=== PATIENT | female | born 1955 | race Caucasian/White ===

== ENCOUNTER 2022-05-31 12:36 | Observation (INO) | payer MEDICARE, BC ==
[2022-05-31] MEDS ORDERED: VALIUM 10 MG/2 ML SYRINGE IV SCH (13:15)
[2022-05-31] MEDS ORDERED: TRANDATE 100MG/20 ML MDV IV ONE (13:15)
[2022-05-31 13:24] LABS: Hematocrit 50.3 % (35-47); Hemoglobin 17.2 g/dL (12.0-16.0); Mean Cell Volume 91.5 fL (78-100); Mean Corpuscular Hemoglobin 31.3 pg (26-32); Mean Corpuscular Hgb Concent. 34.2 g/dL (32-36); Mean Platelet Volume 10.7 fL (7.5-11.0); Platelet Count 203 x10^3/uL (150-450); Red Cell Distribution Width 12.4 % (11.5-14.0); White Blood Count 10.5 x10^3/uL (4.0-10.5)
[2022-05-31 13:49] LABS: Erythrocyte Sedimentation Rate 7 mm/hr (0-20)
[2022-05-31] MEDS: Sodium Chloride 0.9% 1000 ML 1,000 ML IV SCH ×2 (13:58→22:59)
[2022-05-31 13:59] LABS: Eosinophil 1 % (0.00-3.0); Lymphocytes 34 % (24-44); Monocyte 2 % (0.0-12.0); Platelet Estimate NORMAL (NORMAL); Total Cells Counted 100
[2022-05-31] MEDS ORDERED: TRANDATE 100MG/20 ML MDV IV SCH ×2 (14:00→18:00)
[2022-05-31] MEDS ORDERED: ACETAMINOPHEN PO PRN (14:09)
[2022-05-31] MEDS ORDERED: ACETAMINOPHEN 650 MG PO SCH (14:15)
[2022-05-31] MEDS ORDERED: TYLENOL 325 MG PO SCH (14:30)
[2022-05-31] MEDS ORDERED: TYLENOL 325 MG PO PRN (14:30)
[2022-05-31 15:10] LABS: ALBUMIN 4.6 g/dL (3.5-5.0); ALKALINE PHOSPHATASE 60 U/L (38-126); ANION GAP 14.9 MEQ/L (5-15); BLOOD UREA NITROGEN 13 mg/dL (7-17); CHLORIDE 101 mmol/L (98-107); Calcium 9.3 mg/dL (8.4-10.2); Carbon Dioxide 23 mmol/L (22-30); Creatinine 1 0.82 mg/dL (0.52-1.04); EST GLOMERULAR FILTRATION RATE > 60.0 ML/MIN; Glucose 133 mg/dL (74-106); Potassium 3.7 mmol/L (3.5-5.1); SGOT/AST 22 U/L (14-36); SGPT/ALT 19 U/L (0-35); SODIUM 135 mmol/L (137-145); TROPONIN < 0.012 ng/mL (0.000-0.034)
[2022-05-31] MEDS ORDERED: TRANDATE 100MG/20 ML MDV IV PRN ×3 (15:30→16:15)
[2022-05-31 17:00] LABS: INFLUENZA A NEGATIVE (NEGATIVE); INFLUENZA B NEGATIVE (NEGATIVE); RESPIRATORY SYNCTIAL VIRUS NEGATIVE (Negative); SARS-CoV-2 Xpert Express NEGATIVE (NEGATIVE)
[2022-05-31] MEDS: Ativan 2 MG/1 ML VIAL IV PRN (17:59)
[2022-05-31] MEDS ORDERED: APRESOLINE 20 MG/ML INJ IV PRN (18:23)
--- NOTE | 2022-05-31 18:51 | XRAY ---
Indication: Headache and double vision 2.5 days. Hypertension. Conventional contrast enhanced CTA neck performed using 100 cc Isovue 370 contrast. Two-dimensional sagittal and coronal reformatted images obtained. Additional 3-dimensional reformatted images obtained using a separate workstation. Comparison: None Visualized aortic arch demonstrates mild arteriosclerotic calcifications without aneurysm/dissection. Normal widely patent branching right brachiocephalic, left common carotid, and left subclavian arteries. Examination of the right carotid circulation demonstrates widely patent common carotid artery. At the level of the bulb, there is mild heterogeneous arteriosclerotic plaquing without critical stenosis/obstruction. This slightly extends into the origin and proximal internal carotid artery producing 50-60% stenosis. Remaining external carotid artery is normal in CTA appearance. Examination of the left carotid circulation demonstrates widely patent common carotid artery. At the level of the bulb, there is minimal eccentric heterogeneous plaquing. This extends into the origin and proximal internal carotid artery producing 40-50% stenosis. Remaining external carotid artery is normal in CTA appearance. Vertebral arteries demonstrates larger dominant left vertebral artery. No critical stenosis, obstruction, or AV malformation. Visualized soft tissues are negative for pathologic cervical/supraclavicular lymphadenopathy. Thyroid gland enhances homogeneously. Lung apices demonstrates incompletely visualized bilateral patchy airspace disease. Osseous structures intact with osteopenia and mild/moderate C3-C7 degenerative changes. Bilateral dental amalgams produces beam artifact. Impression: 1. Minimal/mild arteriosclerotic disease bilaterally as detailed. There is 50-60% right internal carotid artery stenosis and 40-50% left internal carotid artery stenosis. 2. Normal CTA vertebral arteries with dominant left vertebral artery. 3. Incidental biapical patchy airspace disease. 4. Chronic bony findings including osteopenia and multilevel degenerative changes.
--- NOTE | 2022-05-31 19:03 | XRAY ---
Indication: Headache and double vision 2.[address] head performed without contrast. Then conventional contrast enhanced CTA head performed using 100 cc Isovue 370 contrast. Two-dimensional sagittal and coronal reformatted images obtained. Additional 3-dimensional reformatted images obtained using a separate workstation. Comparison: None CT head without contrast exam demonstrates 2.0 x 2.0 cm round left occipital lobe mass. Additional 1.5 cm round parafalcine mass near the vertex left of midline and 2.1 cm round left cerebellar masses. Moderate vasogenic edema seen of the left mid to posterior parietal lobe without midline shifting. Age-related osteopenia and tiny remote lacunar infarct left basal ganglia. No acute intracranial hemorrhage, abnormal extra-axial fluid collection, or mass effect. Fourth ventricle is midline without hydrocephalus. Bony calvarium intact. Visualized paranasal sinuses and mastoid air cells are clear. CTA head demonstrates minimal scattered arteriosclerotic calcifications of both distal internal carotid arteries without critical stenosis/obstruction. Normal carotid terminus with normal branching A1 and M1 segments bilaterally. More distal anterior cerebral, middle cerebral, anterior communicating, and posterior communicating arteries are normal in CTA appearance. Posterior circulation demonstrates larger dominant distal left radial artery. Remaining basilar, left/right posterior cerebral, left/right superior cerebellar, and left/right anterior inferior cerebellar arteries are normal in CTA appearance. Venous drainage/sinuses are unremarkable Remaining brain demonstrates demonstrates enhancement of the parafalcine, left occipital, and left cerebellar masses. Impression: 1. CT head demonstrates left occipital, left parafalcine/vertex, and left cerebellar enhancing masses as detailed favoring metastasis. 2. No acute intracranial hemorrhage or mass effect/midline shifting. 3. CTA head demonstrates minimal arteriosclerotic calcifications in both internal carotid arteries without critical stenosis/objection. Remaining CTA head is negative.
--- NOTE | 2022-05-31 19:06 | XRAY ---
Indication: Headache, double vision, and hypertension. Comparison: July 21, 2008 PA/lateral chest demonstrates new 2.7 cm right midlung masslike opacity. No focal infiltrate, consolidation, or large effusion. Heart not enlarged. Bony thorax intact with mild osteopenia and degenerative changes. Inferior thoracic spine demonstrates new multilevel posterior element sclerotic lesions worrisome for metastasis. Limited upper abdomen demonstrates contrast from recent CTA exam. Impression: 1. New right midlung masslike opacity better evaluated with CT chest with contrast exam. 2. Also new multilevel inferior thoracic sclerotic lesions concerning for metastasis.
[2022-05-31] MEDS ORDERED: Sodium Chloride 0.9% 1000 ML 1,000 ML IV STA ×2 (19:57→21:27)
[2022-05-31] MEDS: APRESOLINE 20 MG/ML INJ IV SCH ×2 (20:07→20:08)
[2022-05-31] MEDS: Lopressor 25MG Tab PO SCH (21:38)
[2022-05-31] MEDS: Apresoline 25 MG TABLET PO SCH (21:38)
[2022-05-31] MEDS: Decadron 4 MG INJ IV SCH (21:39)
[2022-06-01] MEDS: Decadron 4 MG INJ IV SCH (03:47)
[2022-06-01 07:53] VITALS: BP 180/87; PULSE 77; O2SAT 99
[2022-06-01] MEDS: Apresoline 25 MG TABLET PO SCH (08:51)
[2022-06-01] MEDS: Ativan 2 MG/1 ML VIAL IV PRN (08:51)
[2022-06-01] MEDS: Lopressor 25MG Tab PO SCH (08:51)
[2022-06-01] MEDS ORDERED: hydroDIURIL 25 MG PO SCH (10:00)
[2022-06-01] MEDS ORDERED: NON-FORMULARY ITEM (Lisinopril/Hydrochlorothiazide [Lisinopril-Hctz 10-12.5 Mg Tab] 1 EACH PO SCH (10:00)
[2022-06-01] MEDS ORDERED: Zestril 10 MG PO SCH (10:00)
--- NOTE | 2022-06-01 10:00 | XRAY ---
Indication: Headache, dizziness, and double vision. Metastasis. Multiple contiguous axial images obtained through the chest without contrast. Comparison: None Lungs demonstrates several tiny/small bilateral metastatic nodules. Largest right middle lobe measuring 1.4 x 1.5 x 1.6 cm with spiculated margins. Incidental 1 cm right posterior gutter calcified granuloma. No effusion. Heart is not enlarged. Aorta is moderately arteriosclerotic. Small subcarinal and right hilar calcified granulomas. No obvious pathologic mediastinal lymphadenopathy. Small hiatal hernia. Bony thorax demonstrate mild osteopenia and mild degenerative changes throughout the spine. No axillary lymphadenopathy. CT abdomen/pelvis reported separately. Impression: 1. Diffuse bilateral pulmonary metastasis. 2. Incidental small hiatal hernia, chronic bony findings, and old granulomatous disease.
--- NOTE | 2022-06-01 10:09 | XRAY ---
Indication: Headache, dizziness, and double vision. Metastasis. Multiple contiguous axial images obtained through the abdomen and pelvis without contrast. Comparison: None CT chest reported separately. Stomach is distended with food/fluid. Noncontrasted stomach and bowel loops appear nonobstructed. Progressive worsening scattered colonic diverticulosis greatest in the sigmoid. Urinary bladder is now distended with contrast from CTA exam one day earlier. Uterus again appears enlarged and lobular favoring leiomyomatosis. Several uterine fibroids now demonstrates calcifications. Interval cholecystectomy. No free fluid/air. Right lobe liver demonstrates interval enlarging 1.5 cm rounded hypodense lesion, previously 7 mm. Right lobe liver demonstrates new 8 mm irregular hypodense lesion anteriorly. Lack of IV contrast precludes further characterization. Stable large left adrenal adenoma. Remaining liver, pancreas, spleen, adrenal glands, kidneys and ureters are unremarkable for noncontrast exam. Progressive worsening moderate scattered aortoiliac calcifications without AAA. Osseous structures are now demineralized with progressive worsening mild/moderate degenerative changes throughout the thoracolumbar spine. New 1-2 mm L4 anterolisthesis. Also new moderate degenerative changes of both hips. No suspicious bony lesions. Impression: 1. 2 indeterminant hepatic hypodense lesions as detailed. Initial sonogram could differentiate solid versus cystic mass. 2. Progressive worsening of colonic diverticulosis, worsening arteriosclerotic disease, worsening multilevel degenerative spondylosis, worsening bilateral degenerative arthropathy, and osteopenia. 3. Again uterine leiomyomatosis, several now appearing with calcifications. 4. Grossly stable left adrenal adenoma.
--- NOTE | 2022-06-01 12:52 | PCM.SSS ---
History of Present Illness - Chief Complaint Chief Complaint: hypertension, headache, blurred vision for 5 days History of Present Illness: is a 66 year old female came to office with complaining of not always on the right side of the area as well as headache in occipital area for last 5 days. Patient has a significant past medical history of smoking as well as high blood pressure for which patient is taking lisinopril hydrochlorothiazide and metoprolol. Patient states that her menses look straightchuyi premenstrual type II now more with 4 white ice her the hallways and go away. She is also complaining of headache in occipital area. She denies any other symptoms. So patient is admitted for further evaluation. - Review of Systems Constitutional: No Fever, No Chills Eyes: No Symptoms, Double Vision (right eye) Ears, Nose, & Throat: No Symptoms Respiratory: No Cough, No Short Of Breath Cardiac: No Chest Pain, No Edema, No Syncope Abdominal/Gastrointestinal: No Abdominal Pain, No Nausea, No Vomiting, No Di arrhea Genitourinary Symptoms: No Dysuria Musculoskeletal: No Back Pain, No Neck Pain Skin: No Rash Neurological: Headache, No Dizziness, No Focal Weakness, No Sensory Changes Psychological: No Symptoms Endocrine: No Symptoms Hematologic/Lymphatic: No Symptoms Immunological/Allergic: No Symptoms Medications & Allergies Home Medications: Home Medication List Acetaminophen [Tylenol 8 Hour] 2 tab PO Q8H PRN PRN 05/31/22 [History Confirmed 05/31/22] Lisinopril/Hydrochlorothiazide [Lisinopril-Hctz 10-12.5 mg Tab] 1 tab PO DAILY 05/31/22 [History Confirmed 05/31/22] Metoprolol Tartrate 25 mg [Lopressor 25MG Tab] 25 mg PO BID 05/31/22 [History Confirmed 05/31/22] HydrALAzine HCL 25 MG TAB [Apresoline 25 MG TABLET] 25 mg PO TID #90 tablet 06/01/22 [Rx] Allergies/Adverse Reactions: Allergies Allergy/AdvReac Type Severity Reaction Status Date / Time No Known Drug Allergies Allergy Unverified 05/31/22 13:09 - Past Medical History Past Medical History: Yes Neurological History: No Pertinent History ENT History: No Pertinent History Cardiac History: High Cholesterol, Hypertension Respiratory History: No Pertinent History Endocrine Medical History: No Pertinent History Musculoskelatal History: No Pertinent History GI Medical History: No Pertinent History History: No Pertinent History Pyscho-Social History: No Pertinent History Reproductive Disorders: No Pertinent History - Female History Are you now?: No - Past Surgical History Past Surgical History: Yes Neuro Surgical History: No Pertinent History Cardiac History: No Pertinent History Respiratory Surgery: No Pertinent History GI Surgical History: Cholecystectomy Genitourinary Surgical Hx: No Pertinent History Musculskeletal Surgical Hx: No Pertinent History Female Surgical History: No Pertinent History - Social History Smoking Status: Current every day smoker Alcohol: None Drug Use: none - Physical Exam Vital Signs: Vital Signs - 24 hr Temp Pulse Resp BP BP Pulse Ox 06/01/22 07:52 95.7 F 77 16 180/87 99 06/01/22 04:00 97.9 F 83 16 178/82 96 06/01/22 00:00 97.1 F 78 16 136/64 93 L 05/31/22 20:40 98.0 F 76 20 164/74 95 05/31/22 20:05 82 135/73 05/31/22 17:59 76 24 222/103 05/31/22 16:25 72 20 05/31/22 16:00 98.6 F 70 18 171/84 95 05/31/22 15:57 67 201/101 05/31/22 14:06 75 193/93 05/31/22 13:31 97.5 F 75 23 194/107 95 05/31/22 13:24 97.5 F 75 22 194/107 95 General Appearance: no apparent distress, alert Neurologic Exam: alert, oriented x 3, cooperative, normal mood/affect, nml cerebellar function, nml station & gait, sensation nml, abnormal personal investment adviser II-XII (right abducence nerve palsy), No motor deficits Eye Exam: PERRL/EOMI, eyes nml inspection Ears, Nose, Throat Exam: normal ENT inspection, TMs normal, pharynx normal, moist mucous membranes Neck Exam: normal inspection, non-tender, supple, full range of motion Respiratory Exam: normal breath sounds, lungs clear, No respiratory distress Cardiovascular Exam: regular rate/rhythm, normal heart sounds, normal peripheral pulses Gastrointestinal/Abdomen Exam: soft, normal bowel sounds, No tenderness, No mass Back Exam: normal inspection, normal range of motion, No CVA tenderness, No vertebral tenderness Extremity Exam: normal inspection, normal range of motion, pelvis stable Skin Exam: normal color, warm, dry, No rash Lymphatic Exam: No adenopathy Results - Labs Lab/Micro Results: Lab Results-Last 24 Hours 05/31/22 05/31/22 05/31/22 Range/Units 13:20 13:20 13:20 WBC 10.5 (4.0-10.5) x10^3/uL RBC 5.50 H (4.1-5.4) x10^6/uL Hgb 17.2 H (12.0-16.0) g/dL Hct 50.3 H (35-47) % MCV 91.5 (78-100) fL MCH 31.3 (26-32) pg MCHC 34.2 (32-36) g/dL RDW 12.4 (11.5-14.0) % Plt Count 203 (150-450) x10^3/uL MPV 10.7 (7.5-11.0) fL Segmented Neutrophils 63 (36.0-66.0) % Lymphocytes (Manual) 34 (24-44) % Monocytes (Manual) 2 (0.0-12.0) % Eosinophils (Manual) 1 (0.00-3.0) % Platelet Estimate NORMAL (NORMAL) RBC Morphology NORMAL ESR 7 (0-20) mm/hr D-Dimer 0.44 (0.0-0.50) mg/L Sodium 135 L (137-145) mmol/L Potassium 3.7 (3.5-5.1) mmol/L Chloride 101 (98-107) mmol/L Carbon Dioxide 23 (22-30) mmol/L Anion Gap 14.9 (5-15) MEQ/L BUN 13 (7-17) mg/dL Creatinine 0.82 (0.52-1.04) mg/dL Estimated GFR > 60.0 ML/MIN Glucose 133 H (74-106) mg/dL Calcium 9.3 (8.4-10.2) mg/dL Total Bilirubin 1.20 (0.2-1.3) mg/dL AST 22 (14-36) U/L ALT 19 (0-35) U/L Alkaline Phosphatase 60 (38-126) U/L Troponin I < 0.012 (0.000-0.034) ng/mL Serum Total Protein 8.0 (6.3-8.2) g/dL Albumin 4.6 (3.5-5.0) g/dL TSH 3rd Generation 1.620 (0.47-4.68) mIU/L Influenza Type A Ag (NEGATIVE) Influenza Type B Ag (NEGATIVE) RSV (PCR) (Negative) SARS-CoV-2 (PCR) (NEGATIVE) 05/31/22 Range/Units 16:16 WBC (4.0-10.5) x10^3/uL RBC (4.1-5.4) x10^6/uL Hgb (12.0-16.0) g/dL Hct (35-47) % MCV (78-100) fL MCH (26-32) pg MCHC (32-36) g/dL RDW (11.5-14.0) % Plt Count (150-450) x10^3/uL MPV (7.5-11.0) fL Segmented Neutrophils (36.0-66.0) % Lymphocytes (Manual) (24-44) % Monocytes (Manual) (0.0-12.0) % Eosinophils (Manual) (0.00-3.0) % Platelet Estimate (NORMAL) RBC Morphology ESR (0-20) mm/hr D-Dimer (0.0-0.50) mg/L Sodium (137-145) mmol/L Potassium (3.5-5.1) mmol/L Chloride (98-107) mmol/L Carbon Dioxide (22-30) mmol/L Anion Gap (5-15) MEQ/L BUN (7-17) mg/dL Creatinine (0.52-1.04) mg/dL Estimated GFR ML/MIN Glucose (74-106) mg/dL Calcium (8.4-10.2) mg/dL Total Bilirubin (0.2-1.3) mg/dL AST (14-36) U/L ALT (0-35) U/L Alkaline Phosphatase (38-126) U/L Troponin I (0.000-0.034) ng/mL Serum Total Protein (6.3-8.2) g/dL Albumin (3.5-5.0) g/dL TSH 3rd Generation (0.47-4.68) mIU/L Influenza Type A Ag NEGATIVE (NEGATIVE) Influenza Type B Ag NEGATIVE (NEGATIVE) RSV (PCR) NEGATIVE (Negative) SARS-CoV-2 (PCR) NEGATIVE (NEGATIVE) - Radiology Impressions Radiology Exams & Impressions: Radiology Procedures Category Date Time Status ABDOMEN AND PELVIS W/0 CONTRAS [CT] Stat Exams 06/01/22 09:15 Completed CHEST 2 VIEWS (PA AND LAT) Routine Exams 05/31/22 13:20 Completed CHEST WITHOUT CONTRAST [CT] Stat Exams 06/01/22 09:[address] ANGIOGRAPHY NECK [CT] Urgent Exams 05/31/22 16:57 Completed CTA HEAD W AND/OR WO CONTRAST [CT] Urgent Exams 05/31/22 16:[address]/CT ANGIOGRAPHY NECK Indication: Headache and double vision 2.5 days. Hypertension. Conventional contrast enhanced CTA neck performed using 100 cc Isovue 370 contrast. Two-dimensional sagittal and coronal reformatted images obtained. Additional 3-dimensional reformatted images obtained using a separate workstation. Comparison: None Visualized aortic arch demonstrates mild arteriosclerotic calcifications without aneurysm/dissection. Normal widely patent branching right brachiocephalic, left common carotid, and left subclavian arteries. Examination of the right carotid circulation demonstrates widely patent common carotid artery. At the level of the bulb, there is mild heterogeneous arteriosclerotic plaquing without critical stenosis/obstruction. This slightly extends into the origin and proximal internal carotid artery producing 50-60% stenosis. Remaining external carotid artery is normal in CTA appearance. Examination of the left carotid circulation demonstrates widely patent common carotid artery. At the level of the bulb, there is minimal eccentric heterogeneous plaquing. This extends into the origin and proximal internal carotid artery producing 40-50% stenosis. Remaining external carotid artery is normal in CTA appearance. Vertebral arteries demonstrates larger dominant left vertebral artery. No critical stenosis, obstruction, or AV malformation. Visualized soft tissues are negative for pathologic cervical/supraclavicular lymphadenopathy. Thyroid gland enhances homogeneously. Lung apices demonstrates incompletely visualized bilateral patchy airspace disease. Osseous structures intact with osteopenia and mild/moderate C3-C7 degenerative changes. Bilateral dental amalgams produces beam artifact. Impression: 1. Minimal/mild arteriosclerotic disease bilaterally as detailed. There is 50-60% right internal carotid artery stenosis and 40-50% left internal carotid artery stenosis. 2. Normal CTA vertebral arteries with dominant left vertebral artery. 3. Incidental biapical patchy airspace disease. 4. Chronic bony findings including osteopenia and multilevel degenerative changes. 0020 CT/CTA HEAD W AND/OR WO CONTRAST Indication: Headache and double vision 2.[address] head performed without contrast. Then conventional contrast enhanced CTA head performed using 100 cc Isovue 370 contrast. Two-dimensional sagittal and coronal reformatted images obtained. Additional 3-dimensional reformatted images obtained using a separate workstation. Comparison: None CT head without contrast exam demonstrates 2.0 x 2.0 cm round left occipital lobe mass. Additional 1.5 cm round parafalcine mass near the vertex left of midline and 2.1 cm round left cerebellar masses. Moderate vasogenic edema seen of the left mid to posterior parietal lobe without midline shifting. Age-related osteopenia and tiny remote lacunar infarct left basal ganglia. No acute intracranial hemorrhage, abnormal extra-axial fluid collection, or mass effect. Fourth ventricle is midline without hydrocephalus. Bony calvarium intact. Visualized paranasal sinuses and mastoid air cells are clear. CTA head demonstrates minimal scattered arteriosclerotic calcifications of both distal internal carotid arteries without critical stenosis/obstruction. Normal carotid terminus with normal branching A1 and M1 segments bilaterally. More distal anterior cerebral, middle cerebral, anterior communicating, and posterior communicating arteries are normal in CTA appearance. Posterior circulation demonstrates larger dominant distal left radial artery. Remaining basilar, left/right posterior cerebral, left/right superior cerebellar, and left/right anterior inferior cerebellar arteries are normal in CTA appearance. Venous drainage/sinuses are unremarkable Remaining brain demonstrates demonstrates enhancement of the parafalcine, left occipital, and left cerebellar masses. Impression: 1. CT head demonstrates left occipital, left parafalcine/vertex, and left cerebellar enhancing masses as detailed favoring metastasis. 2. No acute intracranial hemorrhage or mass effect/midline shifting. 3. CTA head demonstrates minimal arteriosclerotic calcifications in both internal carotid arteries without critical stenosis/objection. Remaining CTA head is negative. Imaging Report Continued Page: Name: SAMEER KNOX Procedure Date: 06/01/22 Procedures: [id number] CT/CHEST WITHOUT CONTRAST Technologist: Kerri Matthews Transcribed: 06/01/22 0955 [address]orgue Attendant: IKE SHEA Printed: [~ rep prt dt last] [~ rep prt tm last] Page: Imaging Report [~ rep ct labl] Technologist: Kerri Matthews Transcribed: 06/01/22 0955 Morgue Attendant: IKE SHEA Printed: [~ rep prt dt last] [~ rep prt tm last] Page: Imaging Report [~ rep ct labl] CT/CHEST WITHOUT CONTRAST Indication: Headache, dizziness, and double vision. Metastasis. Multiple contiguous axial images obtained through the chest without contrast. Comparison: None Lungs demonstrates several tiny/small bilateral metastatic nodules. Largest right middle lobe measuring 1.4 x 1.5 x 1.6 cm with spiculated margins. Incidental 1 cm right posterior gutter calcified granuloma. No effusion. Heart is not enlarged. Aorta is moderately arteriosclerotic. Small subcarinal and right hilar calcified granulomas. No obvious pathologic mediastinal lymphadenopathy. Small hiatal hernia. Bony thorax demonstrate mild osteopenia and mild degenerative changes throughout the spine. No axillary lymphadenopathy. CT abdomen/pelvis reported separately. Impression: 1. Diffuse bilateral pulmonary metastasis. 2. Incidental small hiatal hernia, chronic bony findings, and old granulomatous disease. Reported by: IKE SHEA DO Signed by: IKE SHEA DO Signed date/time: 06/01/22 1000 Copies to: VICKI MINAYA Assessment/Plan (1) Neoplasm of brain causing mass effect on adjacent structures Status: Acute Code(s): D49.6 - NEOPLASM OF UNSPECIFIED BEHAVIOR OF BRAIN; G93.5 - COMPRESSION OF BRAIN (2) Double vision Status: Acute Code(s): H53.2 - DIPLOPIA (3) Mass of right lung Status: Acute Code(s): R91.8 - OTHER NONSPECIFIC ABNORMAL FINDING OF LUNG FIELD (4) Brain mass Status: Acute Code(s): G93.89 - OTHER SPECIFIED DISORDERS OF BRAIN (5) Hypertension Status: Acute Qualifiers: Hypertension type: primary hypertension Qualified Code(s): I10 - Essential (primary) hypertension Code(s): I10 - ESSENTIAL (PRIMARY) HYPERTENSION (6) Smoking greater than 40 pack years Status: Acute Code(s): F17.210 - NICOTINE DEPENDENCE, CIGARETTES, UNCOMPLICATED Hospital Summary - Hospital Course Hospital Course: Chief Complaint Diagnosis hypertension, headache, blurred vision for 5 days Allergies Allergy/AdvReac Type Severity Reaction Status Date / Time No Known Drug Allergies Allergy Unverified 05/31/22 13:09 Vital Signs (Last 24 hours) Temp Pulse Resp BP BP Pulse Ox 06/01/22 07:52 95.7 F 77 16 180/87 99 06/01/22 04:00 97.9 F 83 16 178/82 96 06/01/22 00:00 97.1 F 78 16 136/64 93 L 05/31/22 20:40 98.0 F 76 20 164/74 95 05/31/22 20:05 82 135/73 05/31/22 17:59 76 24 222/103 05/31/22 16:25 72 20 05/31/22 16:00 98.6 F 70 18 171/84 95 05/31/22 15:57 67 201/101 05/31/22 14:06 75 193/93 05/31/22 13:31 97.5 F 75 23 194/107 95 05/31/22 13:24 97.5 F 75 22 194/107 95 Home Medications Medication Instructions Recorded Confirmed Last Taken Type Acetaminophen [Tylenol 8 Hour] 2 tab PO Q8H PRN PRN 05/31/22 05/31/22 05/31/22 History Lisinopril/Hydrochlorothiazide 1 tab PO DAILY 05/31/22 05/31/22 05/31/22 History [Lisinopril-Hctz 10-12.5 mg Tab] Metoprolol Tartrate 25 mg 25 mg PO BID 05/31/22 05/31/22 05/31/22 History [Lopressor 25MG Tab] HydrALAzine HCL 25 MG TAB 25 mg PO TID #90 tablet 06/01/22 Unknown Rx [Apresoline 25 MG TABLET] Current Medications Discontinued Medications Generic Name Dose Route Start Last Admin Trade Name Kwasi PRN Reason Stop Dose Admin Acetaminophen 650 mg 05/31/22 14:30 Acetaminophen 325 Mg Tablet PO 06/30/22 14:29 Q8HT OLIVA Acetaminophen 650 mg 05/31/22 14:30 Acetaminophen 325 Mg Tablet PO 06/30/22 14:29 Q8H PRN PRN Dexamethasone Sodium Phosphate 4 mg 05/31/22 20:00 06/01/22 03:47 Dexamethasone Sod Phosphate 4 Mg/Ml Ml IV 06/30/22 19:59 4 mg Q8H OLIVA Administration Diazepam 5 mg 05/31/22 13:15 05/31/22 16:25 Diazepam 10 Mg/2 Ml Disp.Syringe IV 06/01/22 10:00 5 mg 1XONLY OLIVA Administration Hydralazine HCl 10 mg 05/31/22 18:23 Hydralazine Hcl 20 Mg/Ml Vial IV 06/30/22 18:22 1830,1845,1900,1914 PRN HYPERTENSION Hydralazine HCl 10 mg 05/31/22 18:30 05/31/22 20:08 Hydralazine Hcl 20 Mg/Ml Vial IV 05/31/22 19:30 Not Given 1830,1845,1900,1914 OLIVA Hydralazine HCl 25 mg 05/31/22 22:00 06/01/22 08:51 Hydralazine Hcl 25 Mg Tablet PO 06/30/22 21:59 25 mg TID OLIVA Administration Hydrochlorothiazide 12.5 mg 06/01/22 10:00 06/01/22 08:51 Hydrochlorothiazide 25 Mg Tablet PO 07/01/22 09:59 12.5 mg DAILY OLIVA Administration Sodium Chloride 1,000 mls @ 50 mls/hr 05/31/22 13:15 05/31/22 22:59 Sodium Chloride 0.9% 1000 Ml IV 06/30/22 13:14 50 mls/hr .Q20H OLIVA Administration Sodium Chloride 1,000 mls @ 999 mls/hr 05/31/22 19:57 05/31/22 21:01 Sodium Chloride 0.9% 1000 Ml IV 05/31/22 20:57 999 mls/hr .Q1H1M STA Administration Sodium Chloride 1,000 mls @ 999 mls/hr 05/31/22 21:27 05/31/22 21:52 Sodium Chloride 0.9% 1000 Ml IV 05/31/22 22:27 999 mls/hr .Q1H1M STA Administration Labetalol HCl 10 mg 05/31/22 13:15 05/31/22 13:13 Labetalol Hcl 100 Mg/20 Ml Mdv IV 05/31/22 13:16 10 mg STAT ONE Administration Labetalol HCl 10 mg 05/31/22 14:00 05/31/22 14:01 Labetalol Hcl 100 Mg/20 Ml Mdv IV 05/31/22 15:15 10 mg Q30MIN OLIVA Administration Labetalol HCl 10 mg 05/31/22 18:00 Labetalol Hcl 100 Mg/20 Ml Mdv IV 06/30/22 17:59 Q6HT OLIVA Labetalol HCl 10 mg 05/31/22 15:30 Labetalol Hcl 100 Mg/20 Ml Mdv IV 06/30/22 15:29 Q6H PRN HYPERTENSION Labetalol HCl 20 mg 05/31/22 15:56 05/31/22 16:00 Labetalol Hcl 100 Mg/20 Ml Mdv IV 06/30/22 15:29 20 mg Q6H PRN Administration HYPERTENSION Labetalol HCl 20 mg 05/31/22 16:15 06/01/22 05:10 Labetalol Hcl 100 Mg/20 Ml Mdv IV 06/30/22 15:55 20 mg Q6H/PRN PRN Administration HYPERTENSION Lisinopril 10 mg 06/01/22 10:00 06/01/22 08:51 Lisinopril 10 Mg Tablet PO 07/01/22 09:59 10 mg DAILY OLIVA Administration Lorazepam 2 mg 05/31/22 17:54 06/01/22 08:51 Lorazepam 2 Mg/1 Ml 2 Mg Vial IV 06/30/22 17:53 2 mg Q6H PRN PRN Administration ANXIETY Metoprolol Tartrate 25 mg 05/31/22 22:00 06/01/22 08:51 Metoprolol Tartrate 25 Mg Tab PO 06/30/22 21:59 25 mg BID OLIVA Administration Intake & Output (Last 24 hours) 05/30/22 05/31/22 06/01/22 06/02/22 11:59 11:59 11:59 11:59 Intake Total 2743 Output Total 1 Balance 2742 Weight 78.3 kg Laboratory Results (Last 24 hours) 05/31/22 05/31/22 05/31/22 16:16 13:20 13:20 WBC RBC Hgb Hct MCV MCH MCHC RDW Plt Count MPV Segmented Neutrophils Lymphocytes (Manual) Monocytes (Manual) Eosinophils (Manual) Platelet Estimate RBC Morphology ESR D-Dimer 0.44 Sodium 135 L Potassium 3.7 Chloride 101 Carbon Dioxide 23 Anion Gap 14.9 BUN 13 Creatinine 0.82 Estimated GFR > 60.0 Glucose 133 H Calcium 9.3 Total Bilirubin 1.20 AST 22 ALT 19 Alkaline Phosphatase 60 Troponin I < 0.012 Serum Total Protein 8.0 Albumin 4.6 TSH 3rd Generation 1.620 Influenza Type A Ag NEGATIVE Influenza Type B Ag NEGATIVE RSV (PCR) NEGATIVE SARS-CoV-2 (PCR) NEGATIVE 05/31/22 13:20 WBC 10.5 RBC 5.50 H Hgb 17.2 H Hct 50.3 H MCV 91.5 MCH 31.3 MCHC 34.2 RDW 12.4 Plt Count 203 MPV 10.7 Segmented Neutrophils 63 Lymphocytes (Manual) 34 Monocytes (Manual) 2 Eosinophils (Manual) 1 Platelet Estimate NORMAL RBC Morphology NORMAL ESR 7 D-Dimer Sodium Potassium Chloride Carbon Dioxide Anion Gap BUN Creatinine Estimated GFR Glucose Calcium Total Bilirubin AST ALT Alkaline Phosphatase Troponin I Serum Total Protein Albumin TSH 3rd Generation Influenza Type A Ag Influenza Type B Ag RSV (PCR) SARS-CoV-2 (PCR) Orders (Last 24 hours) Category Date Time Status Miscellaneous Nursing Order ROUTINE Care 05/31/22 13:[address] in Observation ROUTINE Care 05/31/22 12:36 Completed Telemetry q6h Care 05/31/22 12:36 Completed Tele-Health Consult ROUTINE Cons 05/31/22 13:05 Completed Heart-Healthy Diet Diet 05/31/22 Dinner Completed Discharge Routine Discharge 06/01/22 Ordered ABDOMEN AND PELVIS W/0 CONTRAS [CT] Stat Exams 06/01/22 09:15 Completed CHEST 2 VIEWS (PA AND LAT) Routine Exams 05/31/22 13:20 Completed CHEST WITHOUT CONTRAST [CT] Stat Exams 06/01/22 09:[address] ANGIOGRAPHY NECK [CT] Urgent Exams 05/31/22 16:57 Completed CTA HEAD W AND/OR WO CONTRAST [CT] Urgent Exams 05/31/22 16:57 Completed CBC Urgent Lab 05/31/22 13:20 Completed CMP Urgent Lab 05/31/22 13:20 Completed COVID/FLU/RSV Panel Routine Lab 05/31/22 16:16 Completed D-DIMER QUANTITATIVE DAILY Lab 05/31/22 13:20 Completed Erythrocyte Sedimentation Rate Urgent Lab 05/31/22 13:20 Completed Manual Differential Urgent Lab 05/31/22 13:20 Completed TROPONIN Urgent Lab 05/31/22 13:20 Completed TSH, 3RD Generation Urgent Lab 05/31/22 13:20 Completed Acetaminophen 325 mg [Tylenol 325 mg] Med 05/31/22 14:30 Discontinued 650 mg PO Q8H PRN PRN Acetaminophen 325 mg [Tylenol 325 mg] Med 05/31/22 14:30 Discontinued 650 mg PO Q8HT Dexamethasone 4 mg [Decadron 4 MG INJ] Med 05/31/22 20:00 Discontinued 4 mg IV Q8H Diazepam 10 mg/2 ml Syringe [Valium 10 mg/2 ml Med 05/31/22 13:15 Discontinued Syringe] 5 mg IV 1XONLY HydrALAzine HCL 20 MG INJ [Apresoline 20 mg/ml Inj Med 05/31/22 18:30 Discontinued *] 10 mg IV 1830,1845,190,1914 HydrALAzine HCL 20 MG INJ [Apresoline 20 mg/ml Inj Med 05/31/22 18:23 Discontinued *] 10 mg IV 1830,1845,190,1914 PRN HydrALAzine HCL 25 MG TAB [Apresoline 25 MG TABLET Med 05/31/22 22:00 Discontinued *] 25 mg PO TID Hydrochlorothiazide 25 mg [hydroDIURIL 25 MG] Med 06/01/22 10:00 Discontinued 12.5 mg PO DAILY Labetalol HCl 100 mg/20 ml [Trandate 100Mg/20 ml Md Med 05/31/22 14:00 Discontinued ] 10 mg IV Q30MIN Labetalol HCl 100 mg/20 ml [Trandate 100Mg/20 ml Mdv Med 05/31/22 15:30 Discontinued ] 10 mg IV Q6H PRN Labetalol HCl 100 mg/20 ml [Trandate 100Mg/20 ml Mdv Med 05/31/22 18:00 Discontinued ] 10 mg IV Q6HT Labetalol HCl 100 mg/20 ml [Trandate 100Mg/20 ml Mdv Med 05/31/22 13:15 Discontinued ] 10 mg IV STAT ONE Labetalol HCl 100 mg/20 ml [Trandate 100Mg/20 ml Mdv Med 05/31/22 15:56 Discontinued ] 20 mg IV Q6H PRN Labetalol HCl 100 mg/20 ml [Trandate 100Mg/20 ml Mdv Med 05/31/22 16:15 Discontinued ] 20 mg IV Q6H/PRN PRN Lisinopril 10 mg [Zestril 10 MG] Med 06/01/22 10:00 Discontinued 10 mg PO DAILY Lorazepam 2 mg/1 ml [Ativan 2 MG/1 ML VIAL] Med 05/31/22 17:54 Discon tinued 2 mg IV Q6H PRN PRN Metoprolol Tartrate 25 mg [Lopressor 25MG Tab] Med 05/31/22 22:00 Discontinued 25 mg PO BID NaCl 0.9% 1000 ml [Sodium Chloride 0.9% 1000 ML] 1,000 Med 05/31/22 13:15 Discontinued ml IV 50 mls/hr NaCl 0.9% 1000 ml [Sodium Chloride 0.9% 1000 ML] 1,000 Med 05/31/22 19:57 Discontinued ml IV 999 mls/hr NaCl 0.9% 1000 ml [Sodium Chloride 0.9% 1000 ML] 1,000 Med 05/31/22 21:27 Discontinued ml IV 999 mls/hr Patient Care Notes (Last 24 hours) 05/31/22 21:30 (created 05/31/22 23:26) Nursing Note by Tayler Friedman Dr into see pt ajnd family Initialized on 05/31/22 23:26 - END OF NOTE 05/31/22 19:59 Nursing Note by Adeline Hyde Patient blood pressure 135/73 on recheck, pulse 82. Called Dr Minaya with updated BP & pulse . New order for PO hydralazine, IV cancelled at this time. Will continue to treat BP PRN with IV labetalol with set parameters. Will continue to monitor. After reviewing radiology studies, Dr Minaya ordered CT Chest, Abd & Pelvis with contrast as well as dexamethasone 4mg Q8H. Will give liter bolus before patient receives more contrast (per radiology) and test will be performed in AM Initialized on 05/31/22 19:59 - END OF NOTE 05/31/22 19:54 Nursing Note by Tayler Friedman SSpolke with rad not jose carlos to do CT ABD, chest and pelviis tonight d/t having CT head with contrast earlier today. Will schedule CT in am. Initialized on 05/31/22 19:54 - END OF NOTE 05/31/22 18:26 Nursing Note by Tyrese Rojo [id number] Minaya by phone at this time. Patient to have hydralazine 10 radha IV q 15 min x4 doses for elevated blood pressure. If this controls blood pressure then also start hydralazine 15 mg po qid. If hydralazine does not help control blood pressure then to put patient in ICU and start cardizem gtt at 10 mg/hr. Initialized on 05/31/22 18:26 - END OF NOTE 05/31/22 15:25 (created 05/31/22 15:30) Nursing Note by Windy Guadarrama Faxed records to [facility] telemed Initialized on 05/31/22 15:30 - END OF NOTE 05/31/22 15:19 (created 05/31/22 15:29) Nursing Note by Windy Guadarrama Called teleneuro consult to [facility]. (Kenn) Initialized on 05/31/22 15:29 - END OF NOTE - Vitals & Intake/Output Vital Signs: Vital Signs Temperature 95.7 F 06/01/22 07:52 Pulse Rate 77 06/01/22 07:52 Respiratory Rate 16 06/01/22 07:52 Blood Pressure 180/87 06/01/22 07:52 O2 Sat by Pulse Oximetry 99 06/01/22 07:52 Intake & Output: Intake & Output 05/30/22 05/31/22 06/01/22 06/02/22 11:59 11:59 11:59 11:59 Intake Total 2743 Output Total 1 Balance 2742 Weight 78.3 kg - Lab Result Diagrams: 05/31/22 13:20 05/31/22 13:20 Lab Results-Last 24 Hrs: Lab Results-Last 24 Hours 05/31/22 05/31/22 05/31/22 Range/Units 13:20 13:20 13:20 WBC 10.5 (4.0-10.5) x10^3/uL RBC 5.50 H (4.1-5.4) x10^6/uL Hgb 17.2 H (12.0-16.0) g/dL Hct 50.3 H (35-47) % MCV 91.5 (78-100) fL MCH 31.3 (26-32) pg MCHC 34.2 (32-36) g/dL RDW 12.4 (11.5-14.0) % Plt Count 203 (150-450) x10^3/uL MPV 10.7 (7.5-11.0) fL Segmented Neutrophils 63 (36.0-66.0) % Lymphocytes (Manual) 34 (24-44) % Monocytes (Manual) 2 (0.0-12.0) % Eosinophils (Manual) 1 (0.00-3.0) % Platelet Estimate NORMAL (NORMAL) RBC Morphology NORMAL ESR 7 (0-20) mm/hr D-Dimer 0.44 (0.0-0.50) mg/L Sodium 135 L (137-145) mmol/L Potassium 3.7 (3.5-5.1) mmol/L Chloride 101 (98-107) mmol/L Carbon Dioxide 23 (22-30) mmol/L Anion Gap 14.9 (5-15) MEQ/L BUN 13 (7-17) mg/dL Creatinine 0.82 (0.52-1.04) mg/dL Estimated GFR > 60.0 ML/MIN Glucose 133 H (74-106) mg/dL Calcium 9.3 (8.4-10.2) mg/dL Total Bilirubin 1.20 (0.2-1.3) mg/dL AST 22 (14-36) U/L ALT 19 (0-35) U/L Alkaline Phosphatase 60 (38-126) U/L Troponin I < 0.012 (0.000-0.034) ng/mL Serum Total Protein 8.0 (6.3-8.2) g/dL Albumin 4.6 (3.5-5.0) g/dL TSH 3rd Generation 1.620 (0.47-4.68) mIU/L Influenza Type A Ag (NEGATIVE) Influenza Type B Ag (NEGATIVE) RSV (PCR) (Negative) SARS-CoV-2 (PCR) (NEGATIVE) 05/31/22 Range/Units 16:16 WBC (4.0-10.5) x10^3/uL RBC (4.1-5.4) x10^6/uL Hgb (12.0-16.0) g/dL Hct (35-47) % MCV (78-100) fL MCH (26-32) pg MCHC (32-36) g/dL RDW (11.5-14.0) % Plt Count (150-450) x10^3/uL MPV (7.5-11.0) fL Segmented Neutrophils (36.0-66.0) % Lymphocytes (Manual) (24-44) % Monocytes (Manual) (0.0-12.0) % Eosinophils (Manual) (0.00-3.0) % Platelet Estimate (NORMAL) RBC Morphology ESR (0-20) mm/hr D-Dimer (0.0-0.50) mg/L Sodium (137-145) mmol/L Potassium (3.5-5.1) mmol/L Chloride (98-107) mmol/L Carbon Dioxide (22-30) mmol/L Anion Gap (5-15) MEQ/L BUN (7-17) mg/dL Creatinine (0.52-1.04) mg/dL Estimated GFR ML/MIN Glucose (74-106) mg/dL Calcium (8.4-10.2) mg/dL Total Bilirubin (0.2-1.3) mg/dL AST (14-36) U/L ALT (0-35) U/L Alkaline Phosphatase (38-126) U/L Troponin I (0.000-0.034) ng/mL Serum Total Protein (6.3-8.2) g/dL Albumin (3.5-5.0) g/dL TSH 3rd Generation (0.47-4.68) mIU/L Influenza Type A Ag NEGATIVE (NEGATIVE) Influenza Type B Ag NEGATIVE (NEGATIVE) RSV (PCR) NEGATIVE (Negative) SARS-CoV-2 (PCR) NEGATIVE (NEGATIVE) - Radiology Exams Ordered Rad Exams-Entire Visit: Radiology Procedures Category Date Time Status ABDOMEN AND PELVIS W/0 CONTRAS [CT] Stat Exams 06/01/22 09:15 Completed CHEST 2 VIEWS (PA AND LAT) Routine Exams 05/31/22 13:20 Completed CHEST WITHOUT CONTRAST [CT] Stat Exams 06/01/22 09:[address] ANGIOGRAPHY NECK [CT] Urgent Exams 05/31/22 16:57 Completed CTA HEAD W AND/OR WO CONTRAST [CT] Urgent Exams 05/31/22 16:57 Completed - Discharge Discharge Date: 06/01/22 Disposition: Home, Self-Care Condition: Stable Prescriptions: New HydrALAzine HCL 25 MG TAB [Apresoline 25 MG TABLET] 25 mg PO TID #90 tablet Continue Metoprolol Tartrate 25 mg [Lopressor 25MG Tab] 25 mg PO BID Lisinopril/Hydrochlorothiazide [Lisinopril-Hctz 10-12.5 mg Tab] 1 tab PO DAILY Acetaminophen [Tylenol 8 Hour] 2 tab PO Q8H PRN PRN PRN Reason: Headache Instructions: High Blood Pressure (DC) Follow up with: URIEL ORDAZ [CONSULTING PHYSICIAN] - 06/01/22 2:00 pm VICKI MINAYA MD [Primary Care Provider] - 06/07/22 11:00 am
== END 2022-06-01 10:23 | disposition home or self-care (01) ==
LOC: MED SURG 12:36
PROVIDERS: ADMIT General Practice; ATTEND General Practice
DX: D49.6 Neoplasm of unspecified behavior of brain (principal); G93.5 Compression of brain; H53.2 Diplopia; R91.8 Other nonspecific abnormal finding of lung field; G93.89 Other specified disorders of brain; I10 Essential (primary) hypertension; F17.210 Nicotine dependence, cigarettes, uncomplicated; R51.9 Headache, unspecified; R93.0 Abnormal findings on diagnostic imaging of skull and head, not elsewhere classified; E78.00 Pure hypercholesterolemia, unspecified; Z79.899 Other long term (current) drug therapy; Z20.828 Contact with and (suspected) exposure to other viral communicable diseases; Z80.1 Family history of malignant neoplasm of trachea, bronchus and lung
CPT/HCPCS: 0241U; 36415; 70496; 70498; 71046; 71250; 74176; 80053; 84443; 84484; 85007; 85027; 85379; 85652; J1100; J2060; J3360; A9270-GY

== ENCOUNTER 2022-08-12 11:28 | Observation (INO) | payer MEDICARE, BC ==
[2022-08-12] MEDS ORDERED: DECADRON 10MG INJ. IV ONE (12:01)
[2022-08-12] MEDS ORDERED: DUONEB 0.5-3 MG/3 ml Neb IH ONE ×2 (12:01→12:21)
--- NOTE | 2022-08-12 12:13 | ERPHSYRPT ---
- History of Present Illness Time Seen by Provider: 08/12/22 11:31 Source: patient, family, EMS Exam Limitations: no limitations Patient Subjective Stated Complaint: Patient c/o decreasing 02 sats at home this morning. Patient does not usually wear oxygen at home. Ambulance staff indicates that oxygen sats were 80% on room air when they arrived and raised to 88% with oxygen via nasal cannula at 2L. Triage Nursing Assessment: Patient arrived by ambulance. She is alert and oriented; speaking in full sentences without difficulties. No increased work of breathing noted. oxygen level 84% on 2L upon arrival to ED. oxygen increased to 4L per n/c and increased to 92%. Right upper lobe with noted rhonchi that clears with cough. Left base is coarse. Patient coughs when attempting to take a deep breath. 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 Patient reports she checked her oxygen saturation which was 77, it was 80% on EMS arrival, was placed on 2 L oxygen and is around 88/89%. Patient reports having cough productive of yellow- green sputum moderate in amount. Patient also has UTI and is started on Bactrim last night. Denies any chest pain but tightness. No fever or chills reported. Patient is currently on 4 L oxygen with sats around 94%. Timing/Duration: today, sudden, worse Activities at Onset: rest Severity of Dyspnea-Max: moderate Severity of Dyspnea-Current: mild Modifying Factors: Improves With: oxygen. Worsens With: exertion Associated Symptoms: cough, productive cough, tightness, No chest pain/discomfort, No fever, No loss of appetite Allergies/Adverse Reactions: No Known Drug Allergies Allergy (Verified 08/12/22 11:30) Home Medications: Acetaminophen [Tylenol 8 Hour] 2 tab PO Q8H PRN PRN 05/31/22 [History] Metoprolol Tartrate 25 mg [Lopressor 25MG Tab] 25 mg PO BID 05/31/22 [History] Fluconazole 100 mg [Diflucan 100 MG] 100 mg PO DAILY 08/12/22 [History] Folic Acid 1 mg PO DAILY 08/12/22 [History] Lisinopril/Hydrochlorothiazide [Lisinopril-Hctz 20-12.5 mg Tab] 1 each PO DAILY 08/12/22 [History] Lorazepam 1 mg [Ativan 1 MG] 1 mg PO QHS 08/12/22 [History] Prochlorperazine Maleate [Compazine] 10 mg PO Q4HPRN PRN 08/12/22 [History] Smz/Tmp Ds Tablet [Bactrim Ds Tablet] 1 tab PO BID 08/12/22 [History] dexAMETHasone [Dexamethasone] 2 mg PO BID 08/12/22 [History] Hx Tetanus, Diphtheria Vaccination/Date Given: Yes Hx Influenza Vaccination/Date Given: No Hx Pneumococcal Vaccination/Date Given: No Immunizations Up to Date: Yes Travel Risk - International Travel Have you traveled outside of the country in past 3 weeks: No - Coronavirus Screening Are you exhibiting any of the following symptoms?: Yes Symptoms: Shortness of Breath Close contact with a COVID-19 positive Pt in past 14-21 Days: No - Vaccine Status Have you recieved a Covid-19 vaccination: Yes 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: [employer] - Vaccination Dates Date of 2cond Vaccination (if applicable): 05/2021 - Review of Systems Constitutional: No Symptoms Eyes: No Symptoms Ears, Nose, & Throat: No Symptoms Respiratory: Cough, Dyspnea, Dyspnea on Exertion (HUNTER) Cardiac: No Symptoms Abdominal/Gastrointestinal: No Symptoms Genitourinary Symptoms: No Symptoms Musculoskeletal: Back Pain, Myalgias Skin: No Symptoms Neurological: Headache Psychological: No Symptoms Endocrine: No Symptoms Hematologic/Lymphatic: No Symptoms Immunological/Allergic: No Symptoms - Past Medical History Pertinent Past Medical History: Yes Neurological History: No Pertinent History ENT History: No Pertinent History Cardiac History: High Cholesterol, Hypertension Respiratory History: Lung Cancer Endocrine Medical History: No Pertinent History Musculoskeletal History: No Pertinent History GI Medical History: Gallbladder Disease History: No Pertinent History Psycho-Social History: No Pertinent History Female Reproductive Disorders: No Pertinent History Other Medical History: brain CA - Past Surgical History Past Surgical History: Yes Neuro Surgical History: No Pertinent History Cardiac: No Pertinent History Respiratory: No Pertinent History Gastrointestinal: Cholecystectomy Genitourinary: No Pertinent History Musculoskeletal: No Pertinent History Female Surgical History: No Pertinent History - Social History Smoking Status: Current every day smoker How long have you smoked: 30+ Exposure to second hand smoke: No Drug Use: none Patient Lives Alone: Yes - Nursing Vital Signs Nursing Vital Signs: Initial Vital Signs Temperature 99.6 F 08/12/22 11:32 Pulse Rate 85 08/12/22 11:32 Respiratory Rate 20 08/12/22 11:32 Blood Pressure 143/74 08/12/22 11:32 O2 Sat by Pulse Oximetry 92 L 08/12/22 11:32 Pain Scale Pain Intensity 0 - Physical Exam General Appearance: no apparent distress, alert Eye Exam: PERRL/EOMI Ears, Nose, Throat Exam: hearing grossly normal Neck Exam: normal inspection, non-tender, supple, full range of motion Respiratory Exam: diminished breath sounds, crackles/rales, rhonchi Cardiovascular/Chest Exam: normal heart sounds, regular rate/rhythm Abdominal/Gastrointestinal Exam: soft Extremity Exam: non-tender, normal range of motion Neurologic Exam: alert, oriented x 3, cooperative Skin Exam: normal color SpO2 Interpretation: O2 applied SpO2: 92 O2 Delivery: Nasal Cannula - Course EKG Interpreted by Me: RATE (83), Sinus Rhythm, NORMAL AXIS, NORMAL INTERVALS, Other (Diffuse T wave inversion and some ST depressions.) Ordered Tests: Active Orders 24 hr Category Date Time Status Bedrest ROUTINE Activity 08/12/22 17:36 Active Up With Assistance ROUTINE Activity 08/12/22 17:36 Active Pizza Delivery Driver STAT Care 08/12/22 12:01 Completed Code Status Order ROUTINE Care 08/12/22 17:36 Active EKG-ER Only STAT Care 08/12/22 12:01 Completed Fall Protocol Q1H Care 08/12/22 17:36 Active IV Care Q6H Care 08/12/22 17:36 Active IV Insertion STAT Care 08/12/22 12:01 Completed Neuro Checks Q4H Care 08/12/22 17:36 Active Oxygen-ED Only Nasal Cannula 4 lpm Care 08/12/22 12:[address] in Observation ROUTINE Care 08/12/22 17:36 Active Tee Clements, Apply ROUTINE Care 08/12/22 17:36 Active Weight,Daily 0600 Care 08/12/22 17:36 Active House Regular Diet Diet 08/12/22 Dinner Active CHEST 1 VIEW (PORTABLE) Stat Exams 08/12/22 12:01 Completed CHEST WITH CONTRAST [CT] Stat Exams 08/12/22 13:49 Taken BLOOD CULTURE Stat Lab 08/12/22 12:45 Received CBC W DIFF AM.LAB Lab 08/13/22 04:00 Ordered CBC W DIFF Stat Lab 08/12/22 12:34 Results CMP AM.LAB Lab 08/13/22 04:00 Ordered CMP Stat Lab 08/12/22 12:34 Completed Lactic Acid Stat Lab 08/12/22 12:30 Completed MAGNESIUM Stat Lab 08/12/22 12:34 Completed Manual Differential NC Stat Lab 08/12/22 12:34 Results NT PRO BNP Stat Lab 08/12/22 12:34 Completed PROCALCITONIN Stat Lab 08/12/22 12:30 Completed Pathologist Review Stat Lab 08/12/22 12:34 Results TROPONIN Q3H Lab 08/12/22 13:45 Completed TROPONIN Q3H Lab 08/12/22 16:50 Completed TROPONIN Q3H Lab 08/12/22 19:46 Completed TROPONIN Q3H Lab 08/12/22 22:45 Ordered UA W/RFX CULTURE Stat Lab 08/12/22 Ordered Transfer Order Routine Transfer 08/12/22 Completed Medication Summary Generic Name Dose Route Start Last Admin Trade Name Freq PRN Reason Stop Dose Admin Acetaminophen 650 mg 08/12/22 17:36 Acetaminophen 325 Mg Tablet PO 09/11/22 17:35 Q4H PRN PRN PAIN AND/OR FEVER Albuterol/Ipratropium 3 ml 08/12/22 19:00 08/12/22 18:50 Ipratropium/Albuterol Sulfate 3 Ml Ampul.Neb IH 09/11/22 18:59 3 ml Q6HRT OLIVA Administration Dexamethasone Sodium Phosphate 6 mg 08/13/22 10:00 Dexamethasone Sod Phosphate 10 Mg/Ml IV 09/12/22 09:59 DAILY OLIVA Levofloxacin/Dextrose 750 mg in 150 mls @ 100 mls/hr 08/13/22 10:00 Levofloxacin 750mg/150ml D5w IV 09/12/22 09:59 Q24H10 OLIVA Lorazepam 1 mg 08/12/22 22:00 Lorazepam 1 Mg Tablet PO 09/11/22 21:59 HS OLIVA Metoprolol Tartrate 25 mg 08/12/22 22:00 Metoprolol Tartrate 25 Mg Tab PO 09/11/22 21:59 BID OLIVA Morphine Sulfate 2 mg 08/12/22 17:36 Morphine Sulfate 2 Mg/Ml Inj IV 08/17/22 17:35 Q4H PRN PRN PAIN Ondansetron HCl 4 mg 08/12/22 17:36 Ondansetron Hcl 4 Mg/2 Ml Vial IV 09/11/22 17:35 Q6H PRN PRN NAUSEA/VOMITING Pantoprazole Sodium 40 mg 08/13/22 10:00 Pantoprazole 40 Mg Vial IV 09/12/22 09:59 Q24H10 OLIVA Prochlorperazine 10 mg 08/12/22 20:05 08/12/22 18:15 Prochlorperazine Maleate 5 Mg Tablet PO 09/11/22 18:51 10 mg Q4HPRN PRN Administration NAUSEA Rivaroxaban 15 mg 08/12/22 16:35 08/12/22 17:45 Rivaroxaban 10 Mg Tablet PO 09/11/22 16:34 15 mg BID OLIVA Administration Discontinued Medications Generic Name Dose Route Start Last Admin Trade Name Freq PRN Reason Stop Dose Admin Albuterol/Ipratropium 3 ml 08/12/22 12:01 08/12/22 12:25 Ipratropium/Albuterol Sulfate 3 Ml Ampul.Neb IH 08/12/22 12:02 3 ml STAT ONE Administration Albuterol/Ipratropium Confirm 08/12/22 12:21 Ipratropium/Albuterol Sulfate 3 Ml Ampul.Neb Administered 08/12/22 12:22 Dose 3 ml IH .STK-MED ONE Dexamethasone Sodium Phosphate 6 mg 08/12/22 12:01 08/12/22 13:08 Dexamethasone Sod Phosphate 10 Mg/Ml IV 08/12/22 12:02 6 mg STAT ONE Administration Dexamethasone Sodium Phosphate Confirm 08/12/22 13:07 Dexamethasone Sod Phosphate 10 Mg/Ml Administered 08/12/22 13:08 Dose 10 mg .ROUTE .STK-MED ONE Levofloxacin/Dextrose 750 mg in 150 mls @ 100 mls/hr 08/12/22 13:45 08/12/22 15:47 Levofloxacin 750mg/150ml D5w IV 08/12/22 15:14 Infused STAT STA Infusion Levofloxacin/Dextrose Confirm 08/12/22 14:03 Levofloxacin 750mg/150ml D5w Administered 08/12/22 14:04 Dose 750 mg in 150 mls @ ud IV .STK-MED ONE Sodium Chloride 1,000 mls @ 75 mls/hr 08/12/22 17:36 08/12/22 20:01 Sodium Chloride 0.9% 1000 Ml IV 09/11/22 17:35 Not Given .[id number] OLIVA Sodium Chloride Confirm 08/12/22 17:41 Sodium Chloride 0.9% 1000 Ml Administered 08/12/22 17:42 Dose 1,000 mls @ ud .ROUTE .STK-MED ONE Prochlorperazine Confirm 08/12/22 18:14 Prochlorperazine Maleate 5 Mg Tablet Administered 08/12/22 18:15 Dose 10 mg .ROUTE .STK-MED ONE Prochlorperazine 5 mg 08/12/22 18:52 Prochlorperazine Maleate 5 Mg Tablet PO 09/11/22 18:51 Q4HPRN PRN NAUSEA Lab/Rad Data: Laboratory Result Diagrams 08/12/22 12:34 08/12/22 12:34 Laboratory Results 08/12/22 08/12/22 08/12/22 Range/Units 16:50 14:17 13:45 WBC (4.0-10.5) x10^3/uL RBC (4.1-5.4) x10^6/uL Hgb (12.0-16.0) g/dL Hct (35-47) % MCV (78-100) fL MCH (26-32) pg MCHC (32-36) g/dL RDW (11.5-14.0) % Plt Count (150-450) x10^3/uL MPV (7.5-11.0) fL Segmented Neutrophils (36.0-66.0) % Band Neutrophils (0.0-2.0) % Lymphocytes (Manual) (24-44) % Monocytes (Manual) (0.0-12.0) % Platelet Estimate (NORMAL) RBC Morphology Microcytosis Macrocytosis Smear Path Review Sodium (137-145) mmol/L Potassium (3.5-5.1) mmol/L Chloride (98-107) mmol/L Carbon Dioxide (22-30) mmol/L Anion Gap (5-15) MEQ/L BUN (7-17) mg/dL Creatinine (0.52-1.04) mg/dL Estimated GFR ML/MIN Glucose (74-106) mg/dL Lactic Acid (0.4-2.0) Calcium (8.4-10.2) mg/dL Magnesium (1.6-2.3) mg/dL Total Bilirubin (0.2-1.3) mg/dL AST (14-36) U/L ALT (0-35) U/L Alkaline Phosphatase (38-126) U/L Troponin I 0.053 H* 0.049 H* (0.000-0.034) ng/mL NT-Pro-B Natriuret Pep (0-900) pg/mL Serum Total Protein (6.3-8.2) g/dL Albumin (3.5-5.0) g/dL Procalcitonin (0.030-0.080) ng/mL Influenza Type A Ag NEGATIVE (NEGATIVE) Influenza Type B Ag NEGATIVE (NEGATIVE) RSV (PCR) NEGATIVE (Negative) SARS-CoV-2 (PCR) NEGATIVE (NEGATIVE) 08/12/22 08/12/22 08/12/22 Range/Units 12:34 12:34 12:30 WBC 3.7 L (4.0-10.5) x10^3/uL RBC 3.01 L (4.1-5.4) x10^6/uL Hgb 9.8 L (12.0-16.0) g/dL Hct 27.9 L (35-47) % MCV 92.7 (78-100) fL MCH 32.6 H (26-32) pg MCHC 35.1 (32-36) g/dL RDW 16.9 H (11.5-14.0) % Plt Count 46 L (150-450) x10^3/uL MPV 10.1 (7.5-11.0) fL Segmented Neutrophils 35 L (36.0-66.0) % Band Neutrophils 4 H (0.0-2.0) % Lymphocytes (Manual) 53 H (24-44) % Monocytes (Manual) 8 (0.0-12.0) % Platelet Estimate DECREASED (NORMAL) RBC Morphology ABNORMAL Microcytosis 1+ Macrocytosis 1+ Smear Path Review Pending Sodium 128 L (137-145) mmol/L Potassium 3.9 (3.5-5.1) mmol/L Chloride 99 (98-107) mmol/L Carbon Dioxide 28 (22-30) mmol/L Anion Gap 4.7 L (5-15) MEQ/L BUN 14 (7-17) mg/dL Creatinine 0.58 (0.52-1.04) mg/dL Estimated GFR > 60.0 ML/MIN Glucose 113 H (74-106) mg/dL Lactic Acid (0.4-2.0) Calcium 8.6 (8.4-10.2) mg/dL Magnesium 1.9 (1.6-2.3) mg/dL Total Bilirubin 1.30 (0.2-1.3) mg/dL AST 24 (14-36) U/L ALT 34 (0-35) U/L Alkaline Phosphatase 55 (38-126) U/L Troponin I (0.000-0.034) ng/mL NT-Pro-B Natriuret Pep 2160 H (0-900) pg/mL Serum Total Protein 5.9 L (6.3-8.2) g/dL Albumin 3.1 L (3.5-5.0) g/dL Procalcitonin 0.241 H (0.030-0.080) ng/mL Influenza Type A Ag (NEGATIVE) Influenza Type B Ag (NEGATIVE) RSV (PCR) (Negative) SARS-CoV-2 (PCR) (NEGATIVE) 08/12/22 Range/Units 12:30 WBC (4.0-10.5) x10^3/uL RBC (4.1-5.4) x10^6/uL Hgb (12.0-16.0) g/dL Hct (35-47) % MCV (78-100) fL MCH (26-32) pg MCHC (32-36) g/dL RDW (11.5-14.0) % Plt Count (150-450) x10^3/uL MPV (7.5-11.0) fL Segmented Neutrophils (36.0-66.0) % Band Neutrophils (0.0-2.0) % Lymphocytes (Manual) (24-44) % Monocytes (Manual) (0.0-12.0) % Platelet Estimate (NORMAL) RBC Morphology Microcytosis Macrocytosis Smear Path Review Sodium (137-145) mmol/L Potassium (3.5-5.1) mmol/L Chloride (98-107) mmol/L Carbon Dioxide (22-30) mmol/L Anion Gap (5-15) MEQ/L BUN (7-17) mg/dL Creatinine (0.52-1.04) mg/dL Estimated GFR ML/MIN Glucose (74-106) mg/dL Lactic Acid 0.7 (0.4-2.0) Calcium (8.4-10.2) mg/dL Magnesium (1.6-2.3) mg/dL Total Bilirubin (0.2-1.3) mg/dL AST (14-36) U/L ALT (0-35) U/L Alkaline Phosphatase (38-126) U/L Troponin I (0.000-0.034) ng/mL NT-Pro-B Natriuret Pep (0-900) pg/mL Serum Total Protein (6.3-8.2) g/dL Albumin (3.5-5.0) g/dL Procalcitonin (0.030-0.080) ng/mL Influenza Type A Ag (NEGATIVE) Influenza Type B Ag (NEGATIVE) RSV (PCR) (Negative) SARS-CoV-2 (PCR) (NEGATIVE) - Progress Progress: improved Air Movement: fair Progress Note: 08/12/22 13:47 66 years old is evaluated for shortness of breath. She is on 4 L oxygen, chest x-ray no obvious acute findings. With her history of lung cancer with chemoradiation, high risk for infectious process. Given a dose of Levaquin. She has normal lactate but elevated procalcitonin of 1.24. She has sodium of 128, will continue with gentle hydration to make sure she is not fluid overl oaded and at the same time has some correction of sodium. Discussed with and patient is being admitted. 08/12/22 16:37 Patient has mild elevation in initial troponin and with her hypoxia and no obvious pneumonic infiltrative process, I have obtained CTA chest which showed that she has a diffuse PE bilaterally nonocclusive. Discussed with who recommended starting her on Xarelto and patient will still be admitted in here. I have discussed risk and benefits of Xarelto with patient and family who understand and agree with start of medication. Blood Culture(s) Obtained: Yes Antibiotics given: Yes Discussed with : Parviz Will see patient in: hospital (observation) Counseled pt/family regarding: lab results, diagnosis, rad results - Departure Departure Disposition: Observation Clinical Impression: Acute respiratory failure with hypoxia, COPD exacerbation, Bilateral pulmonary embolism Condition: Stable Critical Care Time: No
[2022-08-12 13:01] LABS: Hematocrit 27.9 % (35-47); Hemoglobin 9.8 g/dL (12.0-16.0); Mean Cell Volume 92.7 fL (78-100); Mean Corpuscular Hemoglobin 32.6 pg (26-32); Mean Corpuscular Hgb Concent. 35.1 g/dL (32-36); Mean Platelet Volume 10.1 fL (7.5-11.0); Platelet Count 46 x10^3/uL (150-450); Red Blood Count 3.01 x10^6/uL (4.1-5.4); Red Cell Distribution Width 16.9 % (11.5-14.0); White Blood Count 3.7 x10^3/uL (4.0-10.5)
[2022-08-12] MEDS ORDERED: DECADRON 10MG INJ. ONE (13:07)
[2022-08-12 13:20] LABS: ALBUMIN 3.1 g/dL (3.5-5.0); ALKALINE PHOSPHATASE 55 U/L (38-126); ANION GAP 4.7 MEQ/L (5-15); BLOOD UREA NITROGEN 14 mg/dL (7-17); CHLORIDE 99 mmol/L (98-107); Calcium 8.6 mg/dL (8.4-10.2); Carbon Dioxide 28 mmol/L (22-30); Creatinine 1 0.58 mg/dL (0.52-1.04); EST GLOMERULAR FILTRATION RATE > 60.0 ML/MIN; Glucose 113 mg/dL (74-106); MAGNESIUM 1.9 mg/dL (1.6-2.3); NT PRO BNP 2160 pg/mL (0-900); Potassium 3.9 mmol/L (3.5-5.1); SGOT/AST 24 U/L (14-36); SGPT/ALT 34 U/L (0-35); SODIUM 128 mmol/L (137-145); Total Protein 5.9 g/dL (6.3-8.2)
--- NOTE | 2022-08-12 13:36 | XRAY ---
Indication: Short of breath. History lung and brain cancer. Comparison: August 05, 2022 Portable chest unchanged again demonstrating CT proven bilateral pulmonary metastatic nodules. Remaining heart and lungs unremarkable again with incidental right Port-A-Cath. No new/acute findings.
[2022-08-12] MEDS ORDERED: LEVOFLOXACIN 750MG/150ML D5W 750 MG/150 ML BAG IV STA (13:45)
[2022-08-12 13:52] LABS: BAND 4 % (0.0-2.0); Lymphocytes 53 % (24-44); Monocyte 8 % (0.0-12.0); Total Cells Counted 100
[2022-08-12 13:53] LABS: Macrocytosis 1+; Microcytosis 1+; Platelet Estimate DECREASED (NORMAL)
[2022-08-12] MEDS ORDERED: LEVOFLOXACIN 750MG/150ML D5W 750 MG/150 ML BAG IV ONE (14:03)
[2022-08-12 14:55] LABS: INFLUENZA A NEGATIVE (NEGATIVE); INFLUENZA B NEGATIVE (NEGATIVE); RESPIRATORY SYNCTIAL VIRUS NEGATIVE (Negative); SARS-CoV-2 Xpert Express NEGATIVE (NEGATIVE)
[2022-08-12] MEDS ORDERED: Zofran 4 MG/2 ML VIAL IV PRN (17:36)
[2022-08-12] MEDS ORDERED: Sodium Chloride 0.9% 1000 ML 1,000 ML IV SCH (17:36)
[2022-08-12] MEDS ORDERED: MORPHINE SULFATE 2 MG INJ IV PRN (17:36)
[2022-08-12] MEDS ORDERED: TYLENOL 325 MG PO PRN (17:36)
[2022-08-12] MEDS ORDERED: Sodium Chloride 0.9% 1000 ML 1,000 ML ONE (17:41)
[2022-08-12] MEDS: XARELTO 10 MG TABLET PO SCH ×2 (17:45→22:08)
[2022-08-12] MEDS ORDERED: Compazine 5 MG ONE (18:14)
[2022-08-12] MEDS: Compazine 5 MG PO PRN (18:15)
[2022-08-12] MEDS: DUONEB 0.5-3 MG/3 ml Neb IH SCH (18:50)
[2022-08-12] MEDS ORDERED: Compazine 5 MG PO PRN (18:52)
--- NOTE | 2022-08-12 19:44 | PCM.HP ---
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 Patient reports she checked her oxygen saturation which was 77, it was 80% on EMS arrival, was placed on 2 L oxygen and is around 88/89%. Patient reports having cough productive of yellow-green sputum moderate in amount. Patient also has UTI and is started on Bactrim last night. Denies any chest pain but tightness. No fev er or chills reported. Patient is currently on 4 L oxygen with sats around 94%. Timing/Duration: today, sudden, worse Activities at Onset: rest Severity of Dyspnea-Max: moderate Severity of Dyspnea-Current: mild Modifying Factors: Improves With: oxygen. Worsens With: exertion Associated Symptoms: cough, productive cough, tightness, No chest pain/discomfort, No fever, No loss of appetite - Review of Systems Constitutional: Lethargy, No Fever, No Chills Eyes: No Symptoms Ears, Nose, & Throat: No Symptoms Respiratory: Orthopnea, No Cough, No Short Of Breath Cardiac: No Chest Pain, No Edema, No Syncope Abdominal/Gastrointestinal: No Abdominal Pain, No Nausea, No Vomiting, No Eunice rrhea Genitourinary Symptoms: No Dysuria Musculoskeletal: No Back Pain, No Neck Pain Skin: No Rash Neurological: No Dizziness, No Focal Weakness, No Sensory Changes Psychological: No Symptoms Endocrine: No Symptoms Hematologic/Lymphatic: No Symptoms Immunological/Allergic: No Symptoms Medications & Allergies Home Medications: Home Medication List Acetaminophen [Tylenol 8 Hour] 2 tab PO Q8H PRN PRN 05/31/22 [History Confirmed 08/12/22] Metoprolol Tartrate 25 mg [Lopressor 25MG Tab] 25 mg PO BID 05/31/22 [History Confirmed 08/12/22] Fluconazole 100 mg [Diflucan 100 MG] 100 mg PO DAILY 08/12/22 [History Confirmed 08/12/22] Folic Acid 1 mg PO DAILY 08/12/22 [History Confirmed 08/12/22] Lisinopril/Hydrochlorothiazide [Lisinopril-Hctz 20-12.5 mg Tab] 1 each PO DAILY 08/12/22 [History Confirmed 08/12/22] Lorazepam 1 mg [Ativan 1 MG] 1 mg PO QHS 08/12/22 [History Confirmed 08/12/22] Prochlorperazine Maleate [Compazine] 10 mg PO Q4HPRN PRN 08/12/22 [History Confirmed 08/12/22] Smz/Tmp Ds Tablet [Bactrim Ds Tablet] 1 tab PO BID 08/12/22 [History Confirmed 08/12/22] dexAMETHasone [Dexamethasone] 2 mg PO BID 08/12/22 [History Confirmed 08/12/22] Allergies/Adverse Reactions: Allergies Allergy/AdvReac Type Severity Reaction Status Date / Time No Known Drug Allergies Allergy Verified 08/12/22 11:30 - Past Medical History Past Medical History: Yes Neurological History: No Pertinent History ENT History: No Pertinent History Cardiac History: High Cholesterol, Hypertension Respiratory History: Lung Cancer Endocrine Medical History: No Pertinent History Musculoskelatal History: No Pertinent History GI Medical History: Gallbladder Disease History: No Pertinent History Pyscho-Social History: No Pertinent History Reproductive Disorders: No Pertinent History Comment: brain CA - Female History Are you now?: No - Past Surgical History Past Surgical History: Yes Neuro Surgical History: No Pertinent History Cardiac History: No Pertinent History Respiratory Surgery: No Pertinent History GI Surgical History: Cholecystectomy Genitourinary Surgical Hx: No Pertinent History Musculskeletal Surgical Hx: No Pertinent History Female Surgical History: No Pertinent History - Social History Smoking Status: Current every day smoker How long have you smoked: 30+ Exposure to second hand smoke: No Alcohol: None Drug Use: none - Physical Exam Vital Signs: Vital Signs - 24 hr Temp Pulse Resp BP Pulse Ox 08/12/22 18:50 78 20 93 L 08/12/22 17:54 80 20 94 L 08/12/22 17:36 98.4 F 80 16 141/84 94 L 08/12/22 16:38 92 L 08/12/22 16:00 83 20 140/81 93 L 08/12/22 15:07 79 15 140/81 96 08/12/22 13:08 80 125/81 90 L 08/12/22 12:25 78 18 92 L 08/12/22 12:00 92 L 08/12/22 11:32 99.6 F 85 20 143/74 92 L Oxygen-Last 24 hours Oxygen Flowrate (L/min)-RT 10 General Appearance: no apparent distress, alert Neurologic Exam: alert, oriented x 3, cooperative, normal mood/affect, nml cerebellar function, nml station & gait, sensation nml, No motor deficits Eye Exam: PERRL/EOMI, eyes nml inspection Ears, Nose, Throat Exam: normal ENT inspection, TMs normal, pharynx normal, moist mucous membranes Neck Exam: normal inspection, non-tender, supple, full range of motion Respiratory Exam: respiratory distress, diminished breath sounds, wheezing Cardiovascular Exam: regular rate/rhythm, normal heart sounds, normal peripheral pulses Gastrointestinal/Abdomen Exam: soft, normal bowel sounds, No tenderness, No mass Back Exam: normal inspection, normal range of motion, No CVA tenderness, No vertebral tenderness Extremity Exam: normal inspection, normal range of motion, pelvis stable Skin Exam: normal color, warm, dry, No rash Lymphatic Exam: No adenopathy Results - Labs Lab/Micro Results: Lab Results-Last 24 Hours 08/12/22 08/12/22 08/12/22 Range/Units 12:30 12:30 12:34 WBC 3.7 L (4.0-10.5) x10^3/uL RBC 3.01 L (4.1-5.4) x10^6/uL Hgb 9.8 L (12.0-16.0) g/dL Hct 27.9 L (35-47) % MCV 92.7 (78-100) fL MCH 32.6 H (26-32) pg MCHC 35.1 (32-36) g/dL RDW 16.9 H (11.5-14.0) % Plt Count 46 L (150-450) x10^3/uL MPV 10.1 (7.5-11.0) fL Segmented Neutrophils 35 L (36.0-66.0) % Band Neutrophils 4 H (0.0-2.0) % Lymphocytes (Manual) 53 H (24-44) % Monocytes (Manual) 8 (0.0-12.0) % Platelet Estimate DECREASED (NORMAL) RBC Morphology ABNORMAL Microcytosis 1+ Macrocytosis 1+ Smear Path Review Pending Sodium (137-145) mmol/L Potassium (3.5-5.1) mmol/L Chloride (98-107) mmol/L Carbon Dioxide (22-30) mmol/L Anion Gap (5-15) MEQ/L BUN (7-17) mg/dL Creatinine (0.52-1.04) mg/dL Estimated GFR ML/MIN Glucose (74-106) mg/dL Lactic Acid 0.7 (0.4-2.0) Calcium (8.4-10.2) mg/dL Magnesium (1.6-2.3) mg/dL Total Bilirubin (0.2-1.3) mg/dL AST (14-36) U/L ALT (0-35) U/L Alkaline Phosphatase (38-126) U/L Troponin I (0.000-0.034) ng/mL NT-Pro-B Natriuret Pep (0-900) pg/mL Serum Total Protein (6.3-8.2) g/dL Albumin (3.5-5.0) g/dL Procalcitonin 0.241 H (0.030-0.080) ng/mL Influenza Type A Ag (NEGATIVE) Influenza Type B Ag (NEGATIVE) RSV (PCR) (Negative) SARS-CoV-2 (PCR) (NEGATIVE) 08/12/22 08/12/22 08/12/22 Range/Units 12:34 13:45 14:17 WBC (4.0-10.5) x10^3/uL RBC (4.1-5.4) x10^6/uL Hgb (12.0-16.0) g/dL Hct (35-47) % MCV (78-100) fL MCH (26-32) pg MCHC (32-36) g/dL RDW (11.5-14.0) % Plt Count (150-450) x10^3/uL MPV (7.5-11.0) fL Segmented Neutrophils (36.0-66.0) % Band Neutrophils (0.0-2.0) % Lymphocytes (Manual) (24-44) % Monocytes (Manual) (0.0-12.0) % Platelet Estimate (NORMAL) RBC Morphology Microcytosis Macrocytosis Smear Path Review Sodium 128 L (137-145) mmol/L Potassium 3.9 (3.5-5.1) mmol/L Chloride 99 (98-107) mmol/L Carbon Dioxide 28 (22-30) mmol/L Anion Gap 4.7 L (5-15) MEQ/L BUN 14 (7-17) mg/dL Creatinine 0.58 (0.52-1.04) mg/dL Estimated GFR > 60.0 ML/MIN Glucose 113 H (74-106) mg/dL Lactic Acid (0.4-2.0) Calcium 8.6 (8.4-10.2) mg/dL Magnesium 1.9 (1.6-2.3) mg/dL Total Bilirubin 1.30 (0.2-1.3) mg/dL AST 24 (14-36) U/L ALT 34 (0-35) U/L Alkaline Phosphatase 55 (38-126) U/L Troponin I 0.049 H* (0.000-0.034) ng/mL NT-Pro-B Natriuret Pep 2160 H (0-900) pg/mL Serum Total Protein 5.9 L (6.3-8.2) g/dL Albumin 3.1 L (3.5-5.0) g/dL Procalcitonin (0.030-0.080) ng/mL Influenza Type A Ag NEGATIVE (NEGATIVE) Influenza Type B Ag NEGATIVE (NEGATIVE) RSV (PCR) NEGATIVE (Negative) SARS-CoV-2 (PCR) NEGATIVE (NEGATIVE) 08/12/22 Range/Units 16:50 WBC (4.0-10.5) x10^3/uL RBC (4.1-5.4) x10^6/uL Hgb (12.0-16.0) g/dL Hct (35-47) % MCV (78-100) fL MCH (26-32) pg MCHC (32-36) g/dL RDW (11.5-14.0) % Plt Count (150-450) x10^3/uL MPV (7.5-11.0) fL Segmented Neutrophils (36.0-66.0) % Band Neutrophils (0.0-2.0) % Lymphocytes (Manual) (24-44) % Monocytes (Manual) (0.0-12.0) % Platelet Estimate (NORMAL) RBC Morphology Microcytosis Macrocytosis Smear Path Review Sodium (137-145) mmol/L Potassium (3.5-5.1) mmol/L Chloride (98-107) mmol/L Carbon Dioxide (22-30) mmol/L Anion Gap (5-15) MEQ/L BUN (7-17) mg/dL Creatinine (0.52-1.04) mg/dL Estimated GFR ML/MIN Glucose (74-106) mg/dL Lactic Acid (0.4-2.0) Calcium (8.4-10.2) mg/dL Magnesium (1.6-2.3) mg/dL Total Bilirubin (0.2-1.3) mg/dL AST (14-36) U/L ALT (0-35) U/L Alkaline Phosphatase (38-126) U/L Troponin I 0.053 H* (0.000-0.034) ng/mL NT-Pro-B Natriuret Pep (0-900) pg/mL Serum Total Protein (6.3-8.2) g/dL Albumin (3.5-5.0) g/dL Procalcitonin (0.030-0.080) ng/mL Influenza Type A Ag (NEGATIVE) Influenza Type B Ag (NEGATIVE) RSV (PCR) (Negative) SARS-CoV-2 (PCR) (NEGATIVE) - Radiology Impressions Radiology Exams & Impressions: Radiology Procedures Category Date Time Status CHEST 1 VIEW (PORTABLE) Stat Exams 08/12/22 12:01 Completed CHEST WITH CONTRAST [CT] Stat Exams 08/12/22 13:49 Taken - Other Procedures and Tests Respiratory Therapy 08/12/22 13:14 Oxygen Oxymizer LPM 10 lpm 08/12/22 18:51 Smoking Cessation Education ONCE Assessment/Plan (1) Bilateral pulmonary embolism Current Visit: Yes Status: Acute Assessment & Plan: Chief Complaint Diagnosis Acute hypoxic respiratory failure Allergies Allergy/AdvReac Type Severity Reaction Status Date / Time No Known Drug Allergies Allergy Verified 08/12/22 11:30 Vital Signs (Last 24 hours) Temp Pulse Resp BP Pulse Ox 08/12/22 18:50 78 20 93 L 08/12/22 17:54 80 20 94 L 08/12/22 17:36 98.4 F 80 16 141/84 94 L 08/12/22 16:38 92 L 08/12/22 16:00 83 20 140/81 93 L 08/12/22 15:07 79 15 140/81 96 08/12/22 13:08 80 125/81 90 L 08/12/22 12:25 78 18 92 L 08/12/22 12:00 92 L 08/12/22 11:32 99.6 F 85 20 143/74 92 L Home Medications Medication Instructions Recorded Confirmed Last Taken Type Fluconazole 100 mg [Diflucan 100 100 mg PO DAILY 08/12/22 08/12/22 08/11/22 History MG] Folic Acid 1 mg PO DAILY 08/12/22 08/12/22 08/12/22 History Lisinopril/Hydrochlorothiazide 1 each PO DAILY 08/12/22 08/12/22 08/12/22 History [Lisinopril-Hctz 20-12.5 mg Tab] Lorazepam 1 mg [Ativan 1 MG] 1 mg PO QHS 08/12/22 08/12/22 Unknown History Prochlorperazine Maleate 10 mg PO Q4HPRN PRN 08/12/22 08/12/22 Unknown History [Compazine] Smz/Tmp Ds Tablet [Bactrim Ds 1 tab PO BID 08/12/22 08/12/22 08/12/22 History Tablet] dexAMETHasone [Dexamethasone] 2 mg PO BID 08/12/22 08/12/22 08/12/22 History Current Medications Generic Name Dose Route Start Last Admin Trade Name Freq PRN Reason Stop Dose Admin Acetaminophen 650 mg 08/12/22 17:36 Acetaminophen 325 Mg Tablet PO 09/11/22 17:35 Q4H PRN PRN PAIN AND/OR FEVER Albuterol/Ipratropium 3 ml 08/12/22 19:00 08/12/22 18:50 Ipratropium/Albuterol Sulfate 3 Ml Ampul.Neb IH 09/11/22 18:59 3 ml Q6HRT OLIVA Administration Dexamethasone Sodium Phosphate 6 mg 08/13/22 10:00 Dexamethasone Sod Phosphate 10 Mg/Ml IV 09/12/22 09:59 DAILY OLIVA Levofloxacin/Dextrose 750 mg in 150 mls @ 100 mls/hr 08/13/22 10:00 Levofloxacin 750mg/150ml D5w IV 09/12/22 09:59 Q24H10 OLIVA Lorazepam 1 mg 08/12/22 22:00 Lorazepam 1 Mg Tablet PO 09/11/22 21:59 HS [facility] Metoprolol Tartrate 25 mg 08/12/22 22:00 Metoprolol Tartrate 25 Mg Tab PO 09/11/22 21:59 BID OLIVA Morphine Sulfate 2 mg 08/12/22 17:36 Morphine Sulfate 2 Mg/Ml Inj IV 08/17/22 17:35 Q4H PRN PRN PAIN Ondansetron HCl 4 mg 08/12/22 17:36 Ondansetron Hcl 4 Mg/2 Ml Vial IV 09/11/22 17:35 Q6H PRN PRN NAUSEA/VOMITING Pantoprazole Sodium 40 mg 08/13/22 10:00 Pantoprazole 40 Mg Vial IV 09/12/22 09:59 Q24H10 [facility] Prochlorperazine 5 mg 08/12/22 18:52 Prochlorperazine Maleate 5 Mg Tablet PO 09/11/22 18:51 Q4HPRN PRN NAUSEA Rivaroxaban 15 mg 08/12/22 16:35 08/12/22 17:45 Rivaroxaban 10 Mg Tablet PO 09/11/22 16:34 15 mg BID [facility] Administration Discontinued Medications Generic Name Dose Route Start Last Admin Trade Name Freq PRN Reason Stop Dose Admin Albuterol/Ipratropium 3 ml 08/12/22 12:01 08/12/22 12:25 Ipratropium/Albuterol Sulfate 3 Ml Ampul.Neb IH 08/12/22 12:02 3 ml STAT ONE Administration Albuterol/Ipratropium Confirm 08/12/22 12:21 Ipratropium/Albuterol Sulfate 3 Ml Ampul.Neb Administered 08/12/22 12:22 Dose 3 ml IH .STK-MED ONE Dexamethasone Sodium Phosphate 6 mg 08/12/22 12:01 08/12/22 13:08 Dexamethasone Sod Phosphate 10 Mg/Ml IV 08/12/22 12:02 6 mg STAT ONE Administration Dexamethasone Sodium Phosphate Confirm 08/12/22 13:07 Dexamethasone Sod Phosphate 10 Mg/Ml Administered 08/12/22 13:08 Dose 10 mg .ROUTE .STK-MED ONE Levofloxacin/Dextrose 750 mg in 150 mls @ 100 mls/hr 08/12/22 13:45 08/12/22 15:47 Levofloxacin 750mg/150ml D5w IV 08/12/22 15:14 Infused STAT STA Infusion Levofloxacin/Dextrose Confirm 08/12/22 14:03 Levofloxacin 750mg/150ml D5w Administered 08/12/22 14:04 Dose 750 mg in 150 mls @ ud IV .STK-MED ONE Sodium Chloride 1,000 mls @ 75 mls/hr 08/12/22 17:36 Sodium Chloride 0.9% 1000 Ml IV 09/11/22 17:35 .[id number] OLIVA Sodium Chloride Confirm 08/12/22 17:41 Sodium Chloride 0.9% 1000 Ml Administered 08/12/22 17:42 Dose 1,000 mls @ ud .ROUTE .STK-MED ONE Prochlorperazine Confirm 08/12/22 18:14 Prochlorperazine Maleate 5 Mg Tablet Administered 08/12/22 18:15 Dose 10 mg .ROUTE .STK-MED ONE Intake & Output (Last 24 hours) 08/10/22 08/11/22 08/12/22 08/13/22 11:59 11:59 11:59 11:59 Weight 78.4 kg 75.5 kg Microbiology Results (Last 24 hours) 08/12/22 12:45 Blood Blood Culture Gram Stain - Pending 08/12/22 12:45 Blood Blood Culture - Pending 08/12/22 12:34 Blood Blood Culture Gram Stain - Pending 08/12/22 12:34 Blood Blood Culture - Pending Laboratory Results (Last 24 hours) 08/12/22 08/12/22 08/12/22 16:50 14:17 13:45 WBC RBC Hgb Hct MCV MCH MCHC RDW Plt Count MPV Segmented Neutrophils Band Neutrophils Lymphocytes (Manual) Monocytes (Manual) Platelet Estimate RBC Morphology Microcytosis Macrocytosis Sodium Potassium Chloride Carbon Dioxide Anion Gap BUN Creatinine Estimated GFR Glucose Lactic Acid Calcium Magnesium Total Bilirubin AST ALT Alkaline Phosphatase Troponin I 0.053 H* 0.049 H* NT-Pro-B Natriuret Pep Serum Total Protein Albumin Procalcitonin Influenza Type A Ag NEGATIVE Influenza Type B Ag NEGATIVE RSV (PCR) NEGATIVE SARS-CoV-2 (PCR) NEGATIVE 08/12/22 08/12/22 08/12/22 12:34 12:34 12:30 WBC 3.7 L RBC 3.01 L Hgb 9.8 L Hct 27.9 L MCV 92.7 MCH 32.6 H MCHC 35.1 RDW 16.9 H Plt Count 46 L MPV 10.1 Segmented Neutrophils 35 L Band Neutrophils 4 H Lymphocytes (Manual) 53 H Monocytes (Manual) 8 Platelet Estimate DECREASED RBC Morphology ABNORMAL Microcytosis 1+ Macrocytosis 1+ Sodium 128 L Potassium 3.9 Chloride 99 Carbon Dioxide 28 Anion Gap 4.7 L BUN 14 Creatinine 0.58 Estimated GFR > 60.0 Glucose 113 H Lactic Acid Calcium 8.6 Magnesium 1.9 Total Bilirubin 1.30 AST 24 ALT 34 Alkaline Phosphatase 55 Troponin I NT-Pro-B Natriuret Pep 2160 H Serum Total Protein 5.9 L Albumin 3.1 L Procalcitonin 0.241 H Influenza Type A Ag Influenza Type B Ag RSV (PCR) SARS-CoV-2 (PCR) 08/12/22 12:30 WBC RBC Hgb Hct MCV MCH MCHC RDW Plt Count MPV Segmented Neutrophils Band Neutrophils Lymphocytes (Manual) Monocytes (Manual) Platelet Estimate RBC Morphology Microcytosis Macrocytosis Sodium Potassium Chloride Carbon Dioxide Anion Gap BUN Creatinine Estimated GFR Glucose Lactic Acid 0.7 Calcium Magnesium Total Bilirubin AST ALT Alkaline Phosphatase Troponin I NT-Pro-B Natriuret Pep Serum Total Protein Albumin Procalcitonin Influenza Type A Ag Influenza Type B Ag RSV (PCR) SARS-CoV-2 (PCR) Orders (Last 24 hours) Category Date Time Status Bedrest ROUTINE Activity 08/12/22 17:36 Active Up With Assistance ROUTINE Activity 08/12/22 17:36 Active Copper Tapper STAT Care 08/12/22 12:01 Completed Code Status Order ROUTINE Care 08/12/22 17:36 Active EKG-ER Only STAT Care 08/12/22 12:01 Completed Fall Protocol ROUTINE Care 08/12/22 17:36 Active IV Care Q6H Care 08/12/22 17:36 Active IV Insertion STAT Care 08/12/22 12:01 Completed Neuro Checks Q4H Care 08/12/22 17:36 Active Oxygen-ED Only Nasal Cannula 4 lpm Care 08/12/22 12:[address] in Observation ROUTINE Care 08/12/22 17:36 Active Tee Clements, Apply ROUTINE Care 08/12/22 17:36 Active Weight,Daily 0600 Care 08/12/22 17:36 Active Fluxer/Discharge Plan ROUTINE Cons 08/12/22 18:51 Active House Regular Diet Diet 08/12/22 Dinner Active CHEST 1 VIEW (PORTABLE) Stat Exams 08/12/22 12:01 Completed CHEST WITH CONTRAST [CT] Stat Exams 08/12/22 13:49 Taken BLOOD CULTURE Stat Lab 08/12/22 12:45 Received CBC W DIFF AM.LAB Lab 08/13/22 04:00 Ordered CBC W DIFF Stat Lab 08/12/22 12:34 Results CMP AM.LAB Lab 08/13/22 04:00 Ordered CMP Stat Lab 08/12/22 12:34 Completed COVID/FLU/RSV Panel Stat Lab 08/12/22 14:17 Completed Lactic Acid Stat Lab 08/12/22 12:30 Completed MAGNESIUM Stat Lab 08/12/22 12:34 Completed Manual Differential NC Stat Lab 08/12/22 12:34 Results NT PRO BNP Stat Lab 08/12/22 12:34 Completed PROCALCITONIN Stat Lab 08/12/22 12:30 Completed Pathologist Review Stat Lab 08/12/22 12:34 Results TROPONIN Q3H Lab 08/12/22 13:45 Completed TROPONIN Q3H Lab 08/12/22 16:50 Completed TROPONIN Q3H Lab 08/12/22 19:45 Ordered TROPONIN Q3H Lab 08/12/22 22:45 Ordered UA W/RFX CULTURE Stat Lab 08/12/22 Ordered Acetaminophen 325 mg [Tylenol 325 mg] Med 08/12/22 17:36 Ordered 650 mg PO Q4H PRN PRN Albuterol/Ipratropium 3ml Neb* [DUONEB 0.5-3 MG/3 ml Med 08/12/22 12:21 Discontinued Neb] 3 ml IH .STK-MED ONE Albuterol/Ipratropium 3ml Neb* [DUONEB 0.5-3 MG/3 ml Med 08/12/22 19:00 Ordered Neb] 3 ml IH Q6HRT Albuterol/Ipratropium 3ml Neb* [DUONEB 0.5-3 MG/3 ml Med 08/12/22 12:01 Discontinued Neb] 3 ml IH STAT ONE Dexamethasone Sod Phosphate [Decadron 10Mg Inj.] Med 08/12/22 13:07 Disc ontinued 10 mg .ROUTE .STK-MED ONE Dexamethasone Sod Phosphate [Decadron 10Mg Inj.] Med 08/13/22 10:00 Ordered 6 mg IV DAILY Dexamethasone Sod Phosphate [Decadron 10Mg Inj.] Med 08/12/22 12:01 Discontinued 6 mg IV STAT ONE Levofloxacin [Levofloxacin 750Mg/150Ml D5w] Med 08/13/22 10:00 Ordered 750 mg in 150 ml IV Q24H10 Levofloxacin [Levofloxacin 750Mg/150Ml D5w] Med 08/12/22 13:45 Discontinued 750 mg in 150 ml IV STAT Levofloxacin [Levofloxacin 750Mg/150Ml D5w] Med 08/12/22 14:03 Discontinued 750 mg in 150 ml IV UD Lorazepam 1 mg [Ativan 1 MG] Med 08/12/22 22:00 Ordered 1 mg PO HS Metoprolol Tartrate 25 mg [Lopressor 25MG Tab] Med 08/12/22 22:00 Ordered 25 mg PO BID Morphine Sulfate 2 mg Inj Med 08/12/22 17:36 Ordered 2 mg IV Q4H PRN PRN NaCl 0.9% 1000 ml [Sodium Chloride 0.9% 1000 ML] 1,000 Med 08/12/22 17:41 Discontinued ml .ROUTE UD NaCl 0.9% 1000 ml [Sodium Chloride 0.9% 1000 ML] 1,000 Med 08/12/22 17:36 Discontinued ml IV 75 mls/hr Ondansetron HCl 4 mg/2 ml [Zofran 4 MG/2 ML VIAL] Med 08/12/22 17:36 Ordered 4 mg IV Q6H PRN PRN Pantoprazole 40 mg [Protonix 40 mg IV] Med 08/13/22 10:00 Ordered 40 mg IV Q24H10 Prochlorperazine Maleate 5 mg* [Compazine 5 MG] Med 08/12/22 18:14 Discontinued 10 mg .ROUTE .STK-MED ONE Prochlorperazine Maleate 5 mg* [Compazine 5 MG] Med 08/12/22 18:52 Ordered 5 mg PO Q4HPRN PRN Rivaroxaban 10 mg Tablet [Xarelto 10 mg Tablet] Med 08/12/22 16:35 Ordered 15 mg PO BID OT Screen per Nursing Assess ONCE OT 10/21/22 18:51 Active PT Screen per Nursing Assess ONCE PT 08/12/22 18:51 Active Oxygen Oxymizer LPM 10 lpm RT 08/12/22 13:14 Active Pulse Oximetry .spot check RT 08/12/22 17:54 Active Smoking Cessation Education ONCE RT 08/12/22 18:51 Active Transfer Order Routine Transfer 08/12/22 Completed Code(s): I26.99 - OTHER PULMONARY EMBOLISM WITHOUT ACUTE COR PULMONALE (2) Adenocarcinoma of lung, stage 4 Current Visit: Yes Status: Acute Qualifiers: Laterality: right Qualified Code(s): C34.91 - Malignant neoplasm of unspecified part of right bronchus or lung Code(s): C34.90 - MALIGNANT NEOPLASM OF UNSP PART OF UNSP BRONCHUS OR LUNG (3) Acute respiratory failure with hypoxia Current Visit: Yes Status: Acute Code(s): J96.01 - ACUTE RESPIRATORY FAILURE WITH HYPOXIA
[2022-08-12] MEDS: Ativan 1 MG PO SCH (22:08)
[2022-08-12] MEDS: Lopressor 25MG Tab PO SCH (22:08)
--- NOTE | 2022-08-12 22:47 | XRAY ---
Indication: Hypoxia. History of lung and brain cancer. Multiple contiguous axial images obtained through the chest using 80 cc of Isovue-370 contrast and PE protocol. Comparison: CT chest without contrast June 01, 2022 Good opacification of the pulmonary arteries. There is nonoccluding pulmonary emboli in the distal right main and lesser degree distal left main pulmonary arteries extending into all lobar branches. Heart not enlarged with new right Port-A-Cath. Aorta remains moderately atherosclerotic without aneurysm/dissection. Stable small subcarinal and right hilar calcified granulomas. No pathologic mediastinal/hilar lymphadenopathy. Stable small hiatal hernia. Examination of the lungs again demonstrates several small bilateral metastatic nodules overall slightly diminished in size and number. Previous right middle lobe index nodule measures 0.8 x 1.3 cm, previously 1.4 x 1.5 cm. New 2.5 x 2.1 cm right apical cavitary mass also presumed metastatic. New moderate bibasilar subsegmental atelectasis. No effusion. Bony thorax intact again with osteopenia and mild degenerative changes throughout the spine. Limited upper abdomen again demonstrates 2 hepatic cysts, right renal cyst, and left adrenal adenoma. Impression: 1. Diffuse nonoccluding pulmonary emboli, right greater than left. 2. Again diffuse bilateral pulmonary metastasis. 3. Chronic findings including small hiatal hernia, hepatic cysts, right renal cyst, left adrenal adenoma, and chronic bony findings.
[2022-08-13] MEDS: DUONEB 0.5-3 MG/3 ml Neb IH SCH ×4 (00:39→19:05)
[2022-08-13 05:52] LABS: ALBUMIN 3.1 g/dL (3.5-5.0); ALKALINE PHOSPHATASE 51 U/L (38-126); ANION GAP 5.6 MEQ/L (5-15); BLOOD UREA NITROGEN 12 mg/dL (7-17); CHLORIDE 95 mmol/L (98-107); Calcium 8.3 mg/dL (8.4-10.2); Carbon Dioxide 29 mmol/L (22-30); Creatinine 1 0.53 mg/dL (0.52-1.04); EST GLOMERULAR FILTRATION RATE > 60.0 ML/MIN; Glucose 115 mg/dL (74-106); Potassium 3.8 mmol/L (3.5-5.1); SGOT/AST 32 U/L (14-36); SGPT/ALT 31 U/L (0-35); SODIUM 126 mmol/L (137-145); Total Protein 5.9 g/dL (6.3-8.2)
[2022-08-13 05:55] LABS: Hematocrit 26.5 % (35-47); Hemoglobin 9.6 g/dL (12.0-16.0); Mean Cell Volume 91.4 fL (78-100); Mean Corpuscular Hemoglobin 33.1 pg (26-32); Mean Corpuscular Hgb Concent. 36.2 g/dL (32-36); Mean Platelet Volume 10.4 fL (7.5-11.0); Platelet Count 47 x10^3/uL (150-450); Red Cell Distribution Width 17.1 % (11.5-14.0); White Blood Count 4.9 x10^3/uL (4.0-10.5)
[2022-08-13 07:48] LABS: BAND 9 % (0.0-2.0); Lymphocytes 47 % (24-44); Monocyte 6 % (0.0-12.0); Platelet Estimate DECREASED (NORMAL); Total Cells Counted 100
[2022-08-13 07:49] LABS: ANISOCYTOSIS 1+; Polychromasia 1+
[2022-08-13] MEDS: Compazine 5 MG PO PRN ×2 (08:32→16:13)
[2022-08-13] MEDS ORDERED: DECADRON 10MG INJ. IV SCH (10:00)
[2022-08-13] MEDS: LEVOFLOXACIN 750MG/150ML D5W 750 MG/150 ML BAG IV SCH (12:21)
[2022-08-13] MEDS ORDERED: PROCHLORPERAZINE MALEATE 10 MG PO PRN (12:24)
[2022-08-13] MEDS: PROTONIX 40 MG IV IV SCH (12:24)
[2022-08-13] MEDS: Lopressor 25MG Tab PO SCH ×2 (12:24→21:55)
[2022-08-13] MEDS: XARELTO 10 MG TABLET PO SCH ×2 (12:29→21:55)
[2022-08-13] MEDS ORDERED: Compazine 5 MG PO PRN (12:30)
--- NOTE | 2022-08-13 13:05 | PCM.NOTE ---
Date and Time: 08/13/22 1301 Subjective Assessment: patient resting comfortably, currently on 10L oxymizer. daughters have a lot of questions about her prognosis, treatment for stage [address] Peña and Dr Patricio, no one has really ever discussed prognosis with them. she was diagnosed in May of this year. Objective Exam General Appearance: no apparent distress, other (sleepy but arousable) Wound Assessment: Skin/Wound Assessment Wound/Incision Assessment Start: 08/12/22 18:51 Text: Status: Active Freq: Q6H Protocol: Document 08/13/22 08:00 AR (Rec: 08/13/22 09:49 AR [id number]) Wound/Incision Assessment Right Buttock Wound Assessment Shift Assessment Wound Type Pressure Ulcer Wound Stage Stage II Drainage Amount None Length (cm) (cm) 7 Width (cm) (cm) 3.5 Wound Bed Greatest Portion Red (Granulation) Left Buttock Wound Assessment Shift Assessment Wound Type Pressure Ulcer Wound Stage Stage II Drainage Amount None Length (cm) (cm) 5 Width (cm) (cm) 3.5 Wound Bed Greatest Portion Red (Granulation) Surrounding Tissue [place] Wound Photo Photo Taken Yes Date: 08/12/22 Time: 20:00 Comment: PHOTOS ON CHART Respiratory Exam: prolonged expirations, wheezing Cardiovascular Exam: regular rate/rhythm, normal heart sounds Gastrointestinal/Abdomen Exam: soft, No tenderness, No mass OBJECTIVE DATA Vital Signs: Vital Signs - 24 hr Temp Pulse Resp BP BP Pulse Ox 08/13/22 11:54 97.5 F 95 H 16 127/73 92 L 08/13/22 07:24 98.8 F 93 H 18 136/71 91 L 08/13/22 07:14 75 24 91 L 08/13/22 04:00 99.3 F 85 16 103/70 96 08/13/22 00:39 84 20 94 L 08/12/22 23:41 98.4 F 85 20 140/77 97 08/12/22 21:22 92 L 08/12/22 20:00 98.2 F 88 20 156/79 96 08/12/22 18:50 78 20 93 L 08/12/22 17:54 80 20 94 L 08/12/22 17:36 98.4 F 80 16 141/84 94 L 08/12/22 16:00 83 20 140/81 93 L 08/12/22 15:07 79 15 140/81 96 08/12/22 13:08 80 125/81 90 L Oxygen-Last 24 hours Oxygen Flowrate (L/min)-RT 10 Pain Assessment - Last Documented Pain Intensity 0 Intake and Output: Intake & Output 08/11/22 08/12/22 08/13/22 08/14/22 11:59 11:59 11:59 11:59 Intake Total 520 120 Balance 520 120 Weight 78.4 kg 76 kg Lab Results: Lab Results-Last 24 Hours 08/12/22 08/12/22 08/12/22 Range/Units 12:30 12:34 12:34 WBC 3.7 L (4.0-10.5) x10^3/uL RBC 3.01 L (4.1-5.4) x10^6/uL Hgb 9.8 L (12.0-16.0) g/dL Hct 27.9 L (35-47) % MCV 92.7 (78-100) fL MCH 32.6 H (26-32) pg MCHC 35.1 (32-36) g/dL RDW 16.9 H (11.5-14.0) % Plt Count 46 L (150-450) x10^3/uL MPV 10.1 (7.5-11.0) fL Lymphocytes % Segmented Neutrophils 35 L (36.0-66.0) % Band Neutrophils 4 H (0.0-2.0) % Lymphocytes (Manual) 53 H (24-44) % Monocytes (Manual) 8 (0.0-12.0) % Platelet Estimate DECREASED (NORMAL) RBC Morphology ABNORMAL Polychromasia Anisocytosis Microcytosis 1+ Macrocytosis 1+ Smear Path Review Pending Sodium 128 L (137-145) mmol/L Potassium 3.9 (3.5-5.1) mmol/L Chloride 99 (98-107) mmol/L Carbon Dioxide 28 (22-30) mmol/L Anion Gap 4.7 L (5-15) MEQ/L BUN 14 (7-17) mg/dL Creatinine 0.58 (0.52-1.04) mg/dL Estimated GFR > 60.0 ML/MIN Glucose 113 H (74-106) mg/dL Calcium 8.6 (8.4-10.2) mg/dL Magnesium 1.9 (1.6-2.3) mg/dL Total Bilirubin 1.30 (0.2-1.3) mg/dL AST 24 (14-36) U/L ALT 34 (0-35) U/L Alkaline Phosphatase 55 (38-126) U/L Troponin I (0.000-0.034) ng/mL NT-Pro-B Natriuret Pep 2160 H (0-900) pg/mL Serum Total Protein 5.9 L (6.3-8.2) g/dL Albumin 3.1 L (3.5-5.0) g/dL Procalcitonin 0.241 H (0.030-0.080) ng/mL Influenza Type A Ag (NEGATIVE) Influenza Type B Ag (NEGATIVE) RSV (PCR) (Negative) SARS-CoV-2 (PCR) (NEGATIVE) 08/12/22 08/12/22 08/12/22 Range/Units 13:45 14:17 16:50 WBC (4.0-10.5) x10^3/uL RBC (4.1-5.4) x10^6/uL Hgb (12.0-16.0) g/dL Hct (35-47) % MCV (78-100) fL MCH (26-32) pg MCHC (32-36) g/dL RDW (11.5-14.0) % Plt Count (150-450) x10^3/uL MPV (7.5-11.0) fL Lymphocytes % Segmented Neutrophils (36.0-66.0) % Band Neutrophils (0.0-2.0) % Lymphocytes (Manual) (24-44) % Monocytes (Manual) (0.0-12.0) % Platelet Estimate (NORMAL) RBC Morphology Polychromasia Anisocytosis Microcytosis Macrocytosis Smear Path Review Sodium (137-145) mmol/L Potassium (3.5-5.1) mmol/L Chloride (98-107) mmol/L Carbon Dioxide (22-30) mmol/L Anion Gap (5-15) MEQ/L BUN (7-17) mg/dL Creatinine (0.52-1.04) mg/dL Estimated GFR ML/MIN Glucose (74-106) mg/dL Calcium (8.4-10.2) mg/dL Magnesium (1.6-2.3) mg/dL Total Bilirubin (0.2-1.3) mg/dL AST (14-36) U/L ALT (0-35) U/L Alkaline Phosphatase (38-126) U/L Troponin I 0.049 H* 0.053 H* (0.000-0.034) ng/mL NT-Pro-B Natriuret Pep (0-900) pg/mL Serum Total Protein (6.3-8.2) g/dL Albumin (3.5-5.0) g/dL Procalcitonin (0.030-0.080) ng/mL Influenza Type A Ag NEGATIVE (NEGATIVE) Influenza Type B Ag NEGATIVE (NEGATIVE) RSV (PCR) NEGATIVE (Negative) SARS-CoV-2 (PCR) NEGATIVE (NEGATIVE) 08/12/22 08/12/22 08/13/22 Range/Units 19:46 22:40 04:00 WBC 4.9 (4.0-10.5) x10^3/uL RBC 2.90 L (4.1-5.4) x10^6/uL Hgb 9.6 L (12.0-16.0) g/dL Hct 26.5 L (35-47) % MCV 91.4 (78-100) fL MCH 33.1 H (26-32) pg MCHC 36.2 H (32-36) g/dL RDW 17.1 H (11.5-14.0) % Plt Count 47 L (150-450) x10^3/uL MPV 10.4 (7.5-11.0) fL Lymphocytes % Not Reportable Segmented Neutrophils 38 (36.0-66.0) % Band Neutrophils 9 H (0.0-2.0) % Lymphocytes (Manual) 47 H (24-44) % Monocytes (Manual) 6 (0.0-12.0) % Platelet Estimate DECREASED (NORMAL) RBC Morphology NORMAL Polychromasia 1+ Anisocytosis 1+ Microcytosis Macrocytosis Smear Path Review Sodium (137-145) mmol/L Potassium (3.5-5.1) mmol/L Chloride (98-107) mmol/L Carbon Dioxide (22-30) mmol/L Anion Gap (5-15) MEQ/L BUN (7-17) mg/dL Creatinine (0.52-1.04) mg/dL Estimated GFR ML/MIN Glucose (74-106) mg/dL Calcium (8.4-10.2) mg/dL Magnesium (1.6-2.3) mg/dL Total Bilirubin (0.2-1.3) mg/dL AST (14-36) U/L ALT (0-35) U/L Alkaline Phosphatase (38-126) U/L Troponin I 0.050 H* 0.046 H* (0.000-0.034) ng/mL NT-Pro-B Natriuret Pep (0-900) pg/mL Serum Total Protein (6.3-8.2) g/dL Albumin (3.5-5.0) g/dL Procalcitonin (0.030-0.080) ng/mL Influenza Type A Ag (NEGATIVE) Influenza Type B Ag (NEGATIVE) RSV (PCR) (Negative) SARS-CoV-2 (PCR) (NEGATIVE) 08/13/22 Range/Units 05:20 WBC (4.0-10.5) x10^3/uL RBC (4.1-5.4) x10^6/uL Hgb (12.0-16.0) g/dL Hct (35-47) % MCV (78-100) fL MCH (26-32) pg MCHC (32-36) g/dL RDW (11.5-14.0) % Plt Count (150-450) x10^3/uL MPV (7.5-11.0) fL Lymphocytes % Segmented Neutrophils (36.0-66.0) % Band Neutrophils (0.0-2.0) % Lymphocytes (Manual) (24-44) % Monocytes (Manual) (0.0-12.0) % Platelet Estimate (NORMAL) RBC Morphology Polychromasia Anisocytosis Microcytosis Macrocytosis Smear Path Review Sodium 126 L (137-145) mmol/L Potassium 3.8 (3.5-5.1) mmol/L Chloride 95 L (98-107) mmol/L Carbon Dioxide 29 (22-30) mmol/L Anion Gap 5.6 (5-15) MEQ/L BUN 12 (7-17) mg/dL Creatinine 0.53 (0.52-1.04) mg/dL Estimated GFR > 60.0 ML/MIN Glucose 115 H (74-106) mg/dL Calcium 8.3 L (8.4-10.2) mg/dL Magnesium (1.6-2.3) mg/dL Total Bilirubin 1.00 (0.2-1.3) mg/dL AST 32 (14-36) U/L ALT 31 (0-35) U/L Alkaline Phosphatase 51 (38-126) U/L Troponin I (0.000-0.034) ng/mL NT-Pro-B Natriuret Pep (0-900) pg/mL Serum Total Protein 5.9 L (6.3-8.2) g/dL Albumin 3.1 L (3.5-5.0) g/dL Procalcitonin (0.030-0.080) ng/mL Influenza Type A Ag (NEGATIVE) Influenza Type B Ag (NEGATIVE) RSV (PCR) (Negative) SARS-CoV-2 (PCR) (NEGATIVE) Radiology Exams: Radiology Procedures Category Date Time Status CHEST 1 VIEW (PORTABLE) Stat Exams 08/12/22 12:01 Completed CHEST WITH CONTRAST [CT] Stat Exams 08/12/22 13:49 Completed Assessment/Plan (1) Bilateral pulmonary embolism Current Visit: Yes Status: Acute Assessment & Plan: continue xarelto Code(s): I26.99 - OTHER PULMONARY EMBOLISM WITHOUT ACUTE COR PULMONALE (2) Acute respiratory failure with hypoxia Current Visit: Yes Status: Acute Code(s): J96.01 - ACUTE RESPIRATORY FAILURE WITH HYPOXIA (3) Adenocarcinoma of lung, stage 4 Current Visit: Yes Status: Acute Qualifiers: Laterality: right Qualified Code(s): C34.91 - Malignant neoplasm of unspecified part of right bronchus or lung Assessment & Plan: prognosis is poor and likely months, this was very upsetting to daughters. discussed code status but patient states she wants to remain full code and appears to understand this choice. I did briefly discuss hospice but expectations are definitely not realistic currently, in spite of repeatedly stating she wants to go home patient wishes to remain a full code. Code(s): C34.90 - MALIGNANT NEOPLASM OF UNSP PART OF UNSP BRONCHUS OR LUNG (4) COPD exacerbation Current Visit: Yes Status: Acute Assessment & Plan: add IV solumedrol, continue levaquin/neb therapy. I feel some of her hypoxia is likely related to bronchospasm and hopefully will improve. Code(s): J44.1 - CHRONIC OBSTRUCTIVE PULMONARY DISEASE W (ACUTE) EXACERBATION
[2022-08-13] MEDS ORDERED: Lopressor 25MG Tab PO SCH (14:00)
[2022-08-13] MEDS: Diflucan 100 MG PO SCH (16:26)
[2022-08-13] MEDS: FOLATE 1 MG PO SCH (16:26)
[2022-08-13] MEDS: Zestril 20 MG PO SCH (16:26)
[2022-08-13] MEDS: hydroDIURIL 25 MG PO SCH (16:26)
[2022-08-13] MEDS ORDERED: Sterile H2O 10 ml IJ ONE (19:20)
[2022-08-13] MEDS: solu-MEDROL IV SCH (19:31)
[2022-08-13] MEDS: Ativan 1 MG PO SCH (21:55)
[2022-08-14] MEDS: solu-MEDROL IV SCH ×4 (00:10→17:41)
[2022-08-14] MEDS: DUONEB 0.5-3 MG/3 ml Neb IH SCH ×4 (00:37→18:40)
[2022-08-14] MEDS: Compazine 5 MG PO PRN ×3 (03:53→21:19)
[2022-08-14 05:46] LABS: Hematocrit 27.8 % (35-47); Hemoglobin 9.6 g/dL (12.0-16.0); Mean Cell Volume 95.2 fL (78-100); Mean Corpuscular Hemoglobin 32.9 pg (26-32); Mean Corpuscular Hgb Concent. 34.5 g/dL (32-36); Mean Platelet Volume 10.8 fL (7.5-11.0); Platelet Count 68 x10^3/uL (150-450); Red Blood Count 2.92 x10^6/uL (4.1-5.4); White Blood Count 8.8 x10^3/uL (4.0-10.5)
[2022-08-14 06:05] LABS: ANION GAP 5.2 MEQ/L (5-15); BLOOD UREA NITROGEN 14 mg/dL (7-17); CHLORIDE 96 mmol/L (98-107); Calcium 8.4 mg/dL (8.4-10.2); Carbon Dioxide 29 mmol/L (22-30); Creatinine 1 0.53 mg/dL (0.52-1.04); EST GLOMERULAR FILTRATION RATE > 60.0 ML/MIN; Glucose 124 mg/dL (74-106); Potassium 4.2 mmol/L (3.5-5.1); SODIUM 127 mmol/L (137-145)
--- NOTE | 2022-08-14 09:04 | PCM.NOTE ---
Date and Time: 08/14/22900 Subjective Assessment: patient is alert and conversant this morning, she is adamant about going home but hasn't been out of bed since admission. she does not want to stop treatment or do hospice Objective Exam General Appearance: no apparent distress Neurologic Exam: alert, oriented x 3, cooperative Wound Assessment: Skin/Wound Assessment Wound/Incision Assessment Start: 08/12/22 18: 51 Text: Status: Active Freq: Q6H Protocol: Document 08/14/22 08:00 [facility] (Rec: 08/14/22 08:40 [facility] [id number]) Wound/Incision Assessment Right Buttock Wound Assessment Shift Assessment Wound Type Pressure Ulcer Wound Stage Stage II Length (cm) (cm) 7 Width (cm) (cm) 3.5 Wound Bed Greatest Portion Red (Granulation) Left Buttock Wound Assessment Shift Assessment Wound Type Pressure Ulcer Wound Stage Stage II Length (cm) (cm) 5 Width (cm) (cm) 3.5 Wound Bed Greatest Portion Red (Granulation) Surrounding Tissue [place] Wound Photo Photo Taken Yes Date: 08/12/22 Time: 20:00 Comment: PHOTOS ON CHART Respiratory Exam: rhonchi, wheezing Cardiovascular Exam: regular rate/rhythm, normal heart sounds Gastrointestinal/Abdomen Exam: soft, No tenderness, No mass Extremity Exam: normal inspection, normal range of motion OBJECTIVE DATA Vital Signs: Vital Signs - 24 hr Temp Pulse Resp BP Pulse Ox 08/14/22 07:31 99.7 F 91 H 19 171/85 94 L 08/14/22 07:09 94 H 18 93 L 08/14/22 03:55 99.3 F 84 20 157/88 92 L 08/14/22 00:37 83 20 91 L 08/13/22 23:32 98.2 F 84 22 141/74 93 L 08/13/22 19:20 98.8 F 86 21 146/77 97 08/13/22 19:05 89 18 90 L 08/13/22 16:00 98.7 F 84 18 134/72 90 L 08/13/22 11:54 97.5 F 95 H 16 127/73 92 L Pain Assessment - Last Documented Pain Intensity 0 Intake and Output: Intake & Output 08/11/22 08/12/22 08/13/22 08/14/22 11:59 11:59 11:59 11:59 Intake Total 520 620 Balance 520 620 Weight 78.4 kg 76 kg Lab Results: Lab Results-Last 24 Hours 08/14/22 08/14/22 Range/Units 05:10 05:10 WBC 8.8 (4.0-10.5) x10^3/uL RBC 2.92 L (4.1-5.4) x10^6/uL Hgb 9.6 L (12.0-16.0) g/dL Hct 27.8 L (35-47) % MCV 95.2 (78-100) fL MCH 32.9 H (26-32) pg MCHC 34.5 (32-36) g/dL RDW 18.0 H (11.5-14.0) % Plt Count 68 L D (150-450) x10^3/uL MPV 10.8 (7.5-11.0) fL Sodium 127 L (137-145) mmol/L Potassium 4.2 (3.5-5.1) mmol/L Chloride 96 L (98-107) mmol/L Carbon Dioxide 29 (22-30) mmol/L Anion Gap 5.2 (5-15) MEQ/L BUN 14 (7-17) mg/dL Creatinine 0.53 (0.52-1.04) mg/dL Estimated GFR > 60.0 ML/MIN Glucose 124 H (74-106) mg/dL Calcium 8.4 (8.4-10.2) mg/dL Radiology Exams: Radiology Procedures Category Date Time Status CHEST 1 VIEW (PORTABLE) Stat Exams 08/12/22 12:01 Completed CHEST WITH CONTRAST [CT] Stat Exams 08/12/22 13:49 Completed Multi-Disciplinary Progress Notes: Multi-Disciplinary Progress Notes 08/13/22 13:04 Respiratory Note by Lisa Page Resting room air sat 86%. Placed on 4l oxymizer sats 88%. Increased to 6l oxymizer sats 92% Initialized on 08/13/22 13:04 - END OF NOTE Assessment/Plan (1) Bilateral pulmonary embolism Current Visit: Yes Status: Acute Assessment & Plan: continue xarelto, currently stable Code(s): I26.99 - OTHER PULMONARY EMBOLISM WITHOUT ACUTE COR PULMONALE (2) Acute respiratory failure with hypoxia Current Visit: Yes Status: Acute Code(s): J96.01 - ACUTE RESPIRATORY FAILURE WITH HYPOXIA (3) Adenocarcinoma of lung, stage 4 Current Visit: Yes Status: Acute Qualifiers: Laterality: right Qualified Code(s): C34.91 - Malignant neoplasm of unspecified part of right bronchus or lung Code(s): C34.90 - MALIGNANT NEOPLASM OF UNSP PART OF UNSP BRONCHUS OR LUNG (4) COPD exacerbation Current Visit: Yes Status: Acute Assessment & Plan: continue IV steroids, levaquin and nebs. she will need oxygen on discharge most likely and strongly recommend she stay to have functional assessment for safety to ambulate etc. Code(s): J44.1 - CHRONIC OBSTRUCTIVE PULMONARY DISEASE W (ACUTE) EXACERBATION
[2022-08-14] MEDS: XARELTO 10 MG TABLET PO SCH ×2 (09:46→21:06)
[2022-08-14] MEDS: Lopressor 25MG Tab PO SCH ×2 (09:47→21:06)
[2022-08-14] MEDS: hydroDIURIL 25 MG PO SCH (09:47)
[2022-08-14] MEDS: FOLATE 1 MG PO SCH (09:47)
[2022-08-14] MEDS: Zestril 20 MG PO SCH (09:47)
[2022-08-14] MEDS: Diflucan 100 MG PO SCH (09:47)
[2022-08-14] MEDS ORDERED: NON-FORMULARY ITEM (Lisinopril/Hydrochlorothiazide [Lisinopril-Hctz 20-12.5 Mg Tab] 1 EACH PO SCH (10:00)
[2022-08-14 11:14] LABS: ATYPICAL LYMPHS 5 %; BAND 16 % (0.0-2.0); Eosinophil 1 % (0.00-3.0); Lymphocytes 30 % (24-44); Metamyelocyte 2 %; Monocyte 5 % (0.0-12.0); Myelocyte 1 %; Platelet Estimate DECREASED (NORMAL); Total Cells Counted 100
[2022-08-14 11:15] LABS: Nucleated Red Blood Cell 3 %; Toxic Granulation 3+
[2022-08-14 11:16] LABS: Polychromasia 1+
[2022-08-14] MEDS ORDERED: Sterile H2O 10 ml IJ ONE (11:26)
[2022-08-14] MEDS: PROTONIX 40 MG IV IV SCH (11:32)
[2022-08-14] MEDS: LEVOFLOXACIN 750MG/150ML D5W 750 MG/150 ML BAG IV SCH (11:32)
[2022-08-14] MEDS: Ativan 1 MG PO SCH (21:06)
[2022-08-15] MEDS: DUONEB 0.5-3 MG/3 ml Neb IH SCH ×2 (00:22→07:11)
[2022-08-15] MEDS: solu-MEDROL IV SCH ×3 (00:35→12:01)
[2022-08-15 05:26] LABS: Hematocrit 23.5 % (35-47); Hemoglobin 7.8 g/dL (12.0-16.0); Mean Cell Volume 97.1 fL (78-100); Mean Corpuscular Hemoglobin 32.2 pg (26-32); Mean Corpuscular Hgb Concent. 33.2 g/dL (32-36); Mean Platelet Volume 10.1 fL (7.5-11.0); Platelet Count 105 x10^3/uL (150-450); Red Blood Count 2.42 x10^6/uL (4.1-5.4); Red Cell Distribution Width 17.3 % (11.5-14.0); White Blood Count 13.8 x10^3/uL (4.0-10.5)
[2022-08-15 06:31] LABS: ANION GAP 8.1 MEQ/L (5-15); BLOOD UREA NITROGEN 19 mg/dL (7-17); CHLORIDE 93 mmol/L (98-107); Calcium 8.3 mg/dL (8.4-10.2); Carbon Dioxide 28 mmol/L (22-30); Creatinine 1 0.64 mg/dL (0.52-1.04); EST GLOMERULAR FILTRATION RATE > 60.0 ML/MIN; Glucose 153 mg/dL (74-106); Potassium 3.6 mmol/L (3.5-5.1); SODIUM 126 mmol/L (137-145)
[2022-08-15 07:25] LABS: ANISOCYTOSIS 1+; Lymphocytes 29 % (24-44); Monocyte 4 % (0.0-12.0); Platelet Estimate DECREASED (NORMAL); Polychromasia 1+; Total Cells Counted 100; Toxic Granulation 1+
[2022-08-15] MEDS: LEVOFLOXACIN 750MG/150ML D5W 750 MG/150 ML BAG IV SCH (10:13)
[2022-08-15] MEDS: Diflucan 100 MG PO SCH (10:13)
[2022-08-15] MEDS: FOLATE 1 MG PO SCH (10:14)
[2022-08-15] MEDS: hydroDIURIL 25 MG PO SCH (10:14)
[2022-08-15] MEDS: Lopressor 25MG Tab PO SCH (10:15)
[2022-08-15] MEDS: PROTONIX 40 MG IV IV SCH (10:15)
[2022-08-15] MEDS: XARELTO 10 MG TABLET PO SCH (10:16)
[2022-08-15] MEDS: Zestril 20 MG PO SCH (10:17)
[2022-08-15 12:08] VITALS: BP 147/87; PULSE 93; O2SAT 94
--- NOTE | 2022-08-15 17:11 | PCM.DS ---
Discharge Summary Date of Admission: 08/12/22 17:31 Admitting Physician: VICKI MINAYA Primary Care Provider: VICKI MINAYA Allergies Allergies No Known Drug Allergies Allergy (Verified 08/12/22 11:30) Hospital Summary - Hospital Course Hospital Course: Chief Complaint Diagnosis sudden shortness of breath and low Oxygen level at home Allergies Allergy/AdvReac Type Severity Reaction Status Date / Time No Known Drug Allergies Allergy Verified 08/12/22 11:30 Vital Signs (Last 24 hours) Temp Pulse Resp BP Pulse Ox 08/15/22 12:00 98.0 F 93 H 16 147/87 94 L 08/15/22 07:57 98.0 F 94 H 16 126/93 95 08/15/22 07:14 92 H 28 H 95 08/15/22 04:00 100.5 F 85 24 166/88 95 08/15/22 00:20 88 24 94 L 08/14/22 23:49 100.3 F 85 21 154/77 93 L 08/14/22 19:37 100.2 F 90 18 162/77 96 08/14/22 18:46 89 26 H 95 08/14/22 18:41 89 26 H 95 Home Medications Medication Instructions Recorded Confirmed Last Taken Type Fluconazole 100 mg [Diflucan 100 100 mg PO DAILY 08/12/22 08/12/22 08/11/22 History MG] Folic Acid 1 mg PO DAILY 08/12/22 08/12/22 08/12/22 History Lisinopril/Hydrochlorothiazide 1 each PO DAILY 08/12/22 08/12/22 08/12/22 History [Lisinopril-Hctz 20-12.5 mg Tab] Lorazepam 1 mg [Ativan 1 MG] 1 mg PO QHS 08/12/22 08/12/22 Unknown History Prochlorperazine Maleate 10 mg PO Q4HPRN PRN 08/12/22 08/12/22 Unknown History [Compazine] dexAMETHasone [Dexamethasone] 2 mg PO BID 08/12/22 08/12/22 08/12/22 History Levofloxacin [Levofloxacin 500 500 mg PO DAILY #5 tablet 08/15/22 Unknown Rx MG Tablet] Rivaroxaban 10 mg Tablet 10 mg PO DAILY #105 tablet 08/15/22 Unknown Rx [Xarelto 10 mg Tablet] Current Medications Discontinued Medications Generic Name Dose Route Start Last Admin Trade Name Kwasi PRN Reason Stop Dose Admin Acetaminophen 650 mg 08/12/22 17:36 08/15/22 11:23 Acetaminophen 325 Mg Tablet PO 09/11/22 17:35 650 mg Q4H PRN PRN Administration PAIN AND/OR FEVER Albuterol/Ipratropium 3 ml 08/12/22 12:01 08/12/22 12:25 Ipratropium/Albuterol Sulfate 3 Ml Ampul.Neb IH 08/12/22 12:02 3 ml STAT ONE Administration Albuterol/Ipratropium Confirm 08/12/22 12:21 Ipratropium/Albuterol Sulfate 3 Ml Ampul.Neb Administered 08/12/22 12:22 Dose 3 ml IH .STK-MED ONE Albuterol/Ipratropium 3 ml 08/12/22 19:00 08/15/22 07:11 Ipratropium/Albuterol Sulfate 3 Ml Ampul.Neb 09/11/22 18:59 3 ml Q6HRT OLIVA Administration Dexamethasone Sodium Phosphate 6 mg 08/12/22 12:01 08/12/22 13:08 Dexamethasone Sod Phosphate 10 Mg/Ml IV 08/12/22 12:02 6 mg STAT ONE Administration Dexamethasone Sodium Phosphate Confirm 08/12/22 13:07 Dexamethasone Sod Phosphate 10 Mg/Ml Administered 08/12/22 13:08 Dose 10 mg .ROUTE .STK-MED ONE Dexamethasone Sodium Phosphate 6 mg 08/13/22 10:00 08/13/22 11:52 Dexamethasone Sod Phosphate 10 Mg/Ml IV 09/12/22 09:59 Not Given DAILY OLIVA Fluconazole 100 mg 08/13/22 14:00 08/15/22 10:13 Fluconazole 100 Mg Tablet PO 09/12/22 13:59 100 mg DAILY OLIVA Administration Folic Acid 1 mg 08/13/22 14:00 08/15/22 10:14 Folic Acid 1 Mg Tablet PO 09/12/22 13:59 1 mg DAILY OLIVA Administration Hydrochlorothiazide 12.5 mg 08/13/22 14:00 08/15/22 10:14 Hydrochlorothiazide 25 Mg Tablet PO 09/12/22 13:59 12.5 mg DAILY OLIVA Administration Levofloxacin/Dextrose 750 mg in 150 mls @ 100 mls/hr 08/12/22 13:45 08/12/22 15:47 Levofloxacin 750mg/150ml D5w IV 08/12/22 15:14 Infused STAT STA Infusion Levofloxacin/Dextrose Confirm 08/12/22 14:03 Levofloxacin 750mg/150ml D5w Administered 08/12/22 14:04 Dose 750 mg in 150 mls @ ud IV .STK-MED ONE Sodium Chloride 1,000 mls @ 75 mls/hr 08/12/22 17:36 08/12/22 20:01 Sodium Chloride 0.9% 1000 Ml IV 09/11/22 17:35 Not Given .[id number] OLIVA Levofloxacin/Dextrose 750 mg in 150 mls @ 100 mls/hr 08/13/22 10:00 08/15/22 10:13 Levofloxacin 750mg/150ml D5w IV 09/12/22 09:59 100 mls/hr Q24H10 OLIVA Administration Sodium Chloride Confirm 08/12/22 17:41 Sodium Chloride 0.9% 1000 Ml Administered 08/12/22 17:42 Dose 1,000 mls @ ud .ROUTE .STK-MED ONE Lisinopril 20 mg 08/13/22 14:00 08/15/22 10:17 Lisinopril 20 Mg Tablet PO 09/12/22 13:59 20 mg DAILY OILVA Administration Lorazepam 1 mg 08/12/22 22:00 08/14/22 21:06 Lorazepam 1 Mg Tablet PO 09/11/22 21:59 1 mg HS OLIVA Administration Methylprednisolone Sodium Succinate 80 mg 08/13/22 18:00 08/15/22 12:01 Methylprednisolone Sod Suc 40m 40 Mg/Ml Vial IV 09/12/22 17:59 80 mg Q6HT OLIVA Administration Metoprolol Tartrate 25 mg 08/12/22 22:00 08/15/22 10:15 Metoprolol Tartrate 25 Mg Tab PO 09/11/22 21:59 25 mg BID OLIVA Administration Metoprolol Tartrate 25 mg 08/13/22 14:00 08/13/22 18:41 Metoprolol Tartrate 25 Mg Tab PO 09/12/22 13:59 Not Given BID OLIVA Morphine Sulfate 2 mg 08/12/22 17:36 Morphine Sulfate 2 Mg/Ml Inj IV 08/17/22 17:35 Q4H PRN PRN PAIN Non-Formulary Medication 1 each 08/14/22 10:00 Lisinopril/Hydrochlorothiazide [Lisinopril-Hctz 20-12.5 Mg Tab] PO 09/13/22 09:59 DAILY OLIVA Ondansetron HCl 4 mg 08/12/22 17:36 Ondansetron Hcl 4 Mg/2 Ml Vial IV 09/11/22 17:35 Q6H PRN PRN NAUSEA/VOMITING Pantoprazole Sodium 40 mg 08/13/22 10:00 08/15/22 10:15 Pantoprazole 40 Mg Vial IV 09/12/22 09:59 40 mg Q24H10 OLIVA Administration Prochlorperazine Confirm 08/12/22 18:14 Prochlorperazine Maleate 5 Mg Tablet Administered 08/12/22 18:15 Dose 10 mg .ROUTE .STK-MED ONE Prochlorperazine 5 mg 08/12/22 18:52 Prochlorperazine Maleate 5 Mg Tablet PO 09/11/22 18:51 Q4HPRN PRN NAUSEA Prochlorperazine 10 mg 08/12/22 20:05 08/14/22 21:19 Prochlorperazine Maleate 5 Mg Tablet PO 09/11/22 18:51 10 mg Q4HPRN PRN Administration NAUSEA Rivaroxaban 15 mg 08/12/22 16:35 08/15/22 10:16 Rivaroxaban 10 Mg Tablet PO 09/11/22 16:34 15 mg BID OLIVA Administration Sterile Water Confirm 08/13/22 19:20 Water For Injection,Sterile 10 Ml Vial Administered 08/13/22 19:21 Dose 10 ml IJ .STK-MED ONE Sterile Water Confirm 08/14/22 11:26 Water For Injection,Sterile 10 Ml Vial Administered 08/14/22 11:27 Dose 10 ml IJ .STK-MED ONE Intake & Output (Last 24 hours) 08/13/22 08/14/22 08/15/22 08/16/22 11:59 11:59 11:59 11:59 Intake Total 478 389 2373 Output Total 300 Balance 520 620 701 Weight 76 kg 74.8 kg Laboratory Results (Last 24 hours) 08/15/22 08/15/22 05:20 05:20 WBC 13.8 H RBC 2.42 L Hgb 7.8 L Hct 23.5 L MCV 97.1 MCH 32.2 H MCHC 33.2 RDW 17.3 H Plt Count 105 L D MPV 10.1 Segmented Neutrophils 67 H Lymphocytes (Manual) 29 Monocytes (Manual) 4 Toxic Granulation 1+ Platelet Estimate DECREASED RBC Morphology ABNORMAL Polychromasia 1+ Anisocytosis 1+ Sodium 126 L Potassium 3.6 Chloride 93 L Carbon Dioxide 28 Anion Gap 8.1 BUN 19 H Creatinine 0.64 Estimated GFR > 60.0 Glucose 153 H Calcium 8.3 L Orders (Last 24 hours) Category Date Time Status Discharge Planning,Consult Routine Discharge 08/15/22 Active Discharge Routine Discharge 08/15/22 10:19 Ordered BMP AM.LAB Lab 08/15/22 05:20 Completed CBC W DIFF AM.LAB Lab 08/15/22 05:20 Completed Manual Differential NC Routine Lab 08/15/22 05:20 Completed Patient Care Notes (Last 24 hours) 08/15/22 16:30 Physical Therapy Note by Keyur(L#[id number])Mely PT. D/C'ED PRIOR TO COMPLETION OF P.T. EVAL. D/C PLANNING TO F/U RE: POSSIBLE OP NEEDS. Initialized on 08/15/22 16:30 - END OF NOTE 08/15/22 12:53 Nursing Note by Skyla Rod 08-15-22 FAXED [facility] DISCHARGE PAPERWORK, ALSO CALLED ND SPOKE TO OLENAGNEW [id number] Initialized on 08/15/22 12:53 - END OF NOTE 08/15/22 11:13 Case Management Note by Arcelia Pittman REPORTS THEY ARE GOOD ON PATIENT OXYGEN ORDERS. OK TO D/C HOME AND HAVE PATIENT CALL ONCE ARRIVED FOR DELIVERY. Initialized on 08/15/22 11:13 - END OF NOTE 08/15/22 10:40 Case Management Note by Arcelia Pittman PATIENT HAS [facility]. PLEASE FAX D/C INFO TO [phone] Initialized on 08/15/22 10:40 - END OF NOTE 08/15/22 09:40 AIR SAMPLER Note by Batsheva Stover [id number] patient confused took oxygen off walked in the room and her sats was 86 on room air put her back on oxygen and in several minutes she came up to 94 on4L reported to RN Initialized on 08/15/22 09:40 - END OF NOTE 08/15/22 09:39 Nursing Note by Skyla Rod 08-15-[address] CT SC[address] FAXED TO DR ORDAZ (ONCOLOGIST) PER DR MINAYA. HEGNEW 0940 Initialized on 08/15/22 09:39 - END OF NOTE 08/15/22 09:36 Nursing Note by Sunitha Guerra DR ROUNDING ON PT THIS AM, ORDERS RECIEVED TO DISCHARGE HOME WITH OXYGEB THERAPY, FAX COPY OF CT CHEST TO OFFICE OF DR ORDAZ. Initialized on 08/15/22 09:36 - END OF NOTE 08/15/22 06:16 Nursing Note by MikeJerry Has been forgetful at times to time and place easily reoriented saying I know that. States that she has been hearing voices in her bathroom with no one present. Asked if she is in pain and said no and said she wants to go home.Has been taking sips of water. Said she does not have any appetite. Initialized on 08/15/22 06:16 - END OF NOTE 08/14/22 18:58 Respiratory Note by Maryann Campbell SpO2 on Room Air @ rest 80%. SpO2 on 4L oxymizer at rest 88%. SpO2 on 5L oxymizer 93% at rest. Initialized on 08/14/22 18:58 - END OF NOTE - Vitals & Intake/Output Vital Signs: Vital Signs Temperature 98.0 F 08/15/22 12:00 Pulse Rate 93 H 08/15/22 12:00 Respiratory Rate 16 08/15/22 12:00 Blood Pressure 147/87 08/15/22 12:00 O2 Sat by Pulse Oximetry 94 L 08/15/22 12:00 Intake & Output: Intake & Output 08/13/22 08/14/22 08/15/22 08/16/22 11:59 11:59 11:59 11:59 Intake Total 729 449 8070 Output Total 300 Balance 520 620 701 Weight 76 kg 74.8 kg - Lab Result Diagrams: 08/15/22 05:20 08/15/22 05:20 Lab Results-Last 24 Hrs: Lab Results-Last 24 Hours 08/15/22 08/15/22 Range/Units 05:20 05:20 WBC 13.8 H (4.0-10.5) x10^3/uL RBC 2.42 L (4.1-5.4) x10^6/uL Hgb 7.8 L (12.0-16.0) g/dL Hct 23.5 L (35-47) % MCV 97.1 (78-100) fL MCH 32.2 H (26-32) pg MCHC 33.2 (32-36) g/dL RDW 17.3 H (11.5-14.0) % Plt Count 105 L D (150-450) x10^3/uL MPV 10.1 (7.5-11.0) fL Segmented Neutrophils 67 H (36.0-66.0) % Lymphocytes (Manual) 29 (24-44) % Monocytes (Manual) 4 (0.0-12.0) % Toxic Granulation 1+ Platelet Estimate DECREASED (NORMAL) RBC Morphology ABNORMAL Polychromasia 1+ Anisocytosis 1+ Sodium 126 L (137-145) mmol/L Potassium 3.6 (3.5-5.1) mmol/L Chloride 93 L (98-107) mmol/L Carbon Dioxide 28 (22-30) mmol/L Anion Gap 8.1 (5-15) MEQ/L BUN 19 H (7-17) mg/dL Creatinine 0.64 (0.52-1.04) mg/dL Estimated GFR > 60.0 ML/MIN Glucose 153 H (74-106) mg/dL Calcium 8.3 L (8.4-10.2) mg/dL Micro Results-Entire Visit: Microbiology 08/12/22 12:45 Blood Culture - Preliminary Blood NO GROWTH TO DATE 08/12/22 12:34 Blood Culture - Preliminary Blood NO GROWTH TO DATE - Procedures and Test Procedures and Tests throughout Hospitalization: Therapy Orders & Screens 08/12/22 13:14 Oxygen Oxymizer LPM 10 lpm Comment: 08/12/22 18:51 OT Screen per Nursing Assess ONCE Comment: Protocol Order Physician Instructions: Greater than 3 points order OT Admission Screening Reason For Exam: Triggered on Admission Diagnosis: Acute hypoxic respiratory failure Open Wound/Cellutlitis/Pressure Ulcers: Yes Acute Fx/ORIF/Change in wt bearing status: Yes Severe MUSCULOSKELETAL pain: No ADL Dysfunction: Yes Acute CVA w/Hemiparesis/Hemiplegia: No Decreased Functional Mobility/Strength: Yes Sprain/Strain: No Acute Post-op Mobility Dysfunction: No Total Points: 14 PT Screen per Nursing Assess ONCE Comment: Protocol Order Physician Instructions: Greater than 3 points order PT Admission Screenin Reason For Exam: Triggered on Admission Diagnosis: Acute hypoxic respiratory failure Open Wound/Cellutlitis/Pressure Ulcers: Yes Acute Fx/ORIF/Change in wt bearing status: Yes Severe MUSCULOSKELETAL pain: No ADL Dysfunction: Yes Acute CVA w/Hemiparesis/Hemiplegia: No Decreased Functional Mobility/Strength: Yes Sprain/Strain: No Acute Post-op Mobility Dysfunction: No Total Points: 14 Smoking Cessation Education ONCE Comment: Diagnosis: Acute hypoxic respiratory failure Smoking Status: Current every day smoker How long have you smoked: 30+ Do you dip or chew tobacco: No 08/13/22 11:40 Qualify for Home Oxygen TODAY Comment: Diagnosis: sudden shortness of breath and low Oxygen level at home 08/13/22 13:06 Oxygen Oxymizer LPM 6 lpm Comment: Diagnosis: sudden shortness of breath and low Oxygen level at home 08/14/22 09:04 PT Eval & Treat (MD Order) ONCE Reason for Eval:: weakness Diagnosis: sudden shortness of breath and low Oxygen level at home Discharge Exam General Appearance: no apparent distress, alert Neurologic Exam: alert, oriented x 3, cooperative, normal mood/affect, nml cerebellar function, sensation nml, No motor deficits Eye Exam: PERRL, EOMI, eyes nml inspection Ears, Nose, Throat Exam: normal ENT inspection, pharynx normal, moist mucous membranes Neck Exam: normal inspection, non-tender, supple, full range of motion Respiratory Exam: normal breath sounds, lungs clear, No respiratory distress Cardiovascular Exam: regular rate/rhythm, normal heart sounds Gastrointestinal/Abdomen Exam: soft, No tenderness, No mass Pelvic Exam: deferred Rectal Exam: deferred Back Exam: normal inspection, normal range of motion, No CVA tenderness, No vertebral tenderness Extremity Exam: normal inspection, normal range of motion Skin Exam: normal color, warm, dry Final Diagnosis/Problem List - Final Discharge Diagnosis/Problem (1) Bilateral pulmonary embolism Status: Acute Priority: High Assessment & Plan: Chief Complaint Diagnosis sudden shortness of breath and low Oxygen level at home Allergies Allergy/AdvReac Type Severity Reaction Status Date / Time No Known Drug Allergies Allergy Verified 08/12/22 11:30 Vital Signs (Last 24 hours) Temp Pulse Resp BP Pulse Ox 08/15/22 12:00 98.0 F 93 H 16 147/87 94 L 08/15/22 07:57 98.0 F 94 H 16 126/93 95 08/15/22 07:14 92 H 28 H 95 08/15/22 04:00 100.5 F 85 24 166/88 95 08/15/22 00:20 88 24 94 L 08/14/22 23:49 100.3 F 85 21 154/77 93 L 08/14/22 19:37 100.2 F 90 18 162/77 96 08/14/22 18:46 89 26 H 95 08/14/22 18:41 89 26 H 95 Home Medications Medication Instructions Recorded Confirmed Last Taken Type Fluconazole 100 mg [Diflucan 100 100 mg PO DAILY 08/12/22 08/12/22 08/11/22 History MG] Folic Acid 1 mg PO DAILY 08/12/22 08/12/22 08/12/22 History Lisinopril/Hydrochlorothiazide 1 each PO DAILY 08/12/22 08/12/22 08/12/22 History [Lisinopril-Hctz 20-12.5 mg Tab] Lorazepam 1 mg [Ativan 1 MG] 1 mg PO QHS 08/12/22 08/12/22 Unknown History Prochlorperazine Maleate 10 mg PO Q4HPRN PRN 08/12/22 08/12/22 Unknown History [Compazine] dexAMETHasone [Dexamethasone] 2 mg PO BID 08/12/22 08/12/22 08/12/22 History Levofloxacin [Levofloxacin 500 500 mg PO DAILY #5 tablet 08/15/22 Unknown Rx MG Tablet] Rivaroxaban 10 mg Tablet 10 mg PO DAILY #105 tablet 08/15/22 Unknown Rx [Xarelto 10 mg Tablet] Current Medications Discontinued Medications Generic Name Dose Route Start Last Admin Trade Name Freq PRN Reason Stop Dose Admin Acetaminophen 650 mg 08/12/22 17:36 08/15/22 11:23 Acetaminophen 325 Mg Tablet PO 09/11/22 17:35 650 mg Q4H PRN PRN Administration PAIN AND/OR FEVER Albuterol/Ipratropium 3 ml 08/12/22 12:01 08/12/22 12:25 Ipratropium/Albuterol Sulfate 3 Ml Ampul.Neb IH 08/12/22 12:02 3 ml STAT ONE Administration Albuterol/Ipratropium Confirm 08/12/22 12:21 Ipratropium/Albuterol Sulfate 3 Ml Ampul.Neb Administered 08/12/22 12:22 Dose 3 ml IH .STK-MED ONE Albuterol/Ipratropium 3 ml 08/12/22 19:00 08/15/22 07:11 Ipratropium/Albuterol Sulfate 3 Ml Ampul.Neb IH 09/11/22 18:59 3 ml Q6HRT OLIVA Administration Dexamethasone Sodium Phosphate 6 mg 08/12/22 12:01 08/12/22 13:08 Dexamethasone Sod Phosphate 10 Mg/Ml IV 08/12/22 12:02 6 mg STAT ONE Administration Dexamethasone Sodium Phosphate Confirm 08/12/22 13:07 Dexamethasone Sod Phosphate 10 Mg/Ml Administered 08/12/22 13:08 Dose 10 mg .ROUTE .STK-MED ONE Dexamethasone Sodium Phosphate 6 mg 08/13/22 10:00 08/13/22 11:52 Dexamethasone Sod Phosphate 10 Mg/Ml IV 09/12/22 09:59 Not Given DAILY OLIVA Fluconazole 100 mg 08/13/22 14:00 08/15/22 10:13 Fluconazole 100 Mg Tablet PO 09/12/22 13:59 100 mg DAILY OLIVA Administration Folic Acid 1 mg 08/13/22 14:00 08/15/22 10:14 Folic Acid 1 Mg Tablet PO 09/12/22 13:59 1 mg DAILY OLIVA Administration Hydrochlorothiazide 12.5 mg 08/13/22 14:00 08/15/22 10:14 Hydrochlorothiazide 25 Mg Tablet PO 09/12/22 13:59 12.5 mg DAILY OLIVA Administration Levofloxacin/Dextrose 750 mg in 150 mls @ 100 mls/hr 08/12/22 13:45 08/12/22 15:47 Levofloxacin 750mg/150ml D5w IV 08/12/22 15:14 Infused STAT STA Infusion Levofloxacin/Dextrose Confirm 08/12/22 14:03 Levofloxacin 750mg/150ml D5w Administered 08/12/22 14:04 Dose 750 mg in 150 mls @ ud IV .STK-MED ONE Sodium Chloride 1,000 mls @ 75 mls/hr 08/12/22 17:36 08/12/22 20:01 Sodium Chloride 0.9% 1000 Ml IV 09/11/22 17:35 Not Given .[id number] OLIVA Levofloxacin/Dextrose 750 mg in 150 mls @ 100 mls/hr 08/13/22 10:00 08/15/22 10:13 Levofloxacin 750mg/150ml D5w IV 09/12/22 09:59 100 mls/hr Q24H10 OLIVA Administration Sodium Chloride Confirm 08/12/22 17:41 Sodium Chloride 0.9% 1000 Ml Administered 08/12/22 17:42 Dose 1,000 mls @ ud .ROUTE .STK-MED ONE Lisinopril 20 mg 08/13/22 14:00 08/15/22 10:17 Lisinopril 20 Mg Tablet PO 09/12/22 13:59 20 mg DAILY OLIVA Administration Lorazepam 1 mg 08/12/22 22:00 08/14/22 21:06 Lorazepam 1 Mg Tablet PO 09/11/22 21:59 1 mg HS OLIVA Administration Methylprednisolone Sodium Succinate 80 mg 08/13/22 18:00 08/15/22 12:01 Methylprednisolone Sod Suc 40m 40 Mg/Ml Vial IV 09/12/22 17:59 80 mg Q6HT OLIVA Administration Metoprolol Tartrate 25 mg 08/12/22 22:00 08/15/22 10:15 Metoprolol Tartrate 25 Mg Tab PO 09/11/22 21:59 25 mg BID OLIVA Administration Metoprolol Tartrate 25 mg 08/13/22 14:00 08/13/22 18:41 Metoprolol Tartrate 25 Mg Tab PO 09/12/22 13:59 Not Given BID OLIVA Morphine Sulfate 2 mg 08/12/22 17:36 Morphine Sulfate 2 Mg/Ml Inj IV 08/17/22 17:35 Q4H PRN PRN PAIN Non-Formulary Medication 1 each 08/14/22 10:00 Lisinopril/Hydrochlorothiazide [Lisinopril-Hctz 20-12.5 Mg Tab] PO 09/13/22 09:59 DAILY OLIVA Ondansetron HCl 4 mg 08/12/22 17:36 Ondansetron Hcl 4 Mg/2 Ml Vial IV 09/11/22 17:35 Q6H PRN PRN NAUSEA/VOMITING Pantoprazole Sodium 40 mg 08/13/22 10:00 08/15/22 10:15 Pantoprazole 40 Mg Vial IV 09/12/22 09:59 40 mg Q24H10 OLIVA Administration Prochlorperazine Confirm 08/12/22 18:14 Prochlorperazine Maleate 5 Mg Tablet Administered 08/12/22 18:15 Dose 10 mg .ROUTE .STK-MED ONE Prochlorperazine 5 mg 08/12/22 18:52 Prochlorperazine Maleate 5 Mg Tablet PO 09/11/22 18:51 Q4HPRN PRN NAUSEA Prochlorperazine 10 mg 08/12/22 20:05 08/14/22 21:19 Prochlorperazine Maleate 5 Mg Tablet PO 09/11/22 18:51 10 mg Q4HPRN PRN Administration NAUSEA Rivaroxaban 15 mg 08/12/22 16:35 08/15/22 10:16 Rivaroxaban 10 Mg Tablet PO 09/11/22 16:34 15 mg BID OLIVA Administration Sterile Water Confirm 08/13/22 19:20 Water For Injection,Sterile 10 Ml Vial Administered 08/13/22 19:21 Dose 10 ml IJ .STK-MED ONE Sterile Water Confirm 08/14/22 11:26 Water For Injection,Sterile 10 Ml Vial Administered 08/14/22 11:27 Dose 10 ml IJ .STK-MED ONE Intake & Output (Last 24 hours) 08/13/22 08/14/22 08/15/22 08/16/22 11:59 11:59 11:59 11:59 Intake Total 506 764 6357 Output Total 300 Balance 520 620 701 Weight 76 kg 74.8 kg Laboratory Results (Last 24 hours) 08/15/22 08/15/22 05:20 05:20 WBC 13.8 H RBC 2.42 L Hgb 7.8 L Hct 23.5 L MCV 97.1 MCH 32.2 H MCHC 33.2 RDW 17.3 H Plt Count 105 L D MPV 10.1 Segmented Neutrophils 67 H Lymphocytes (Manual) 29 Monocytes (Manual) 4 Toxic Granulation 1+ Platelet Estimate DECREASED RBC Morphology ABNORMAL Polychromasia 1+ Anisocytosis 1+ Sodium 126 L Potassium 3.6 Chloride 93 L Carbon Dioxide 28 Anion Gap 8.1 BUN 19 H Creatinine 0.64 Estimated GFR > 60.0 Glucose 153 H Calcium 8.3 L Orders (Last 24 hours) Category Date Time Status Discharge Planning,Consult Routine Discharge 08/15/22 Active Discharge Routine Discharge 08/15/22 10:19 Ordered BMP AM.LAB Lab 08/15/22 05:20 Completed CBC W DIFF AM.LAB Lab 08/15/22 05:20 Completed Manual Differential NC Routine Lab 08/15/22 05:20 Completed Patient Care Notes (Last 24 hours) 08/15/22 16:30 Physical Therapy Note by Keyur(L#[id number])Mely PT. D/C'ED PRIOR TO COMPLETION OF P.T. EVAL. D/C PLANNING TO F/U RE: POSSIBLE OP NEEDS. Initialized on 08/15/22 16:30 - END OF NOTE 08/15/22 12:53 Nursing Note by Skyla Rod 08-15-22 FAXED [facility] DISCHARGE [facility], ALSO CALLED ND SPOKE TO TERRI. [id number] Initialized on 08/15/22 12:53 - END OF NOTE 08/15/22 11:13 Case Management Note by Arcelia Pittman [facility] REPORTS THEY ARE GOOD ON PATIENT OXYGEN ORDERS. OK TO D/C HOME AND HAVE PATIENT CALL ONCE ARRIVED FOR DELIVERY. Initialized on 08/15/22 11:13 - END OF NOTE 08/15/22 10:40 Case Management Note by Arcelia Pittman PATIENT HAS [facility]. PLEASE FAX D/C INFO TO [phone] Initialized on 08/15/22 10:40 - END OF NOTE 08/15/22 09:40 AIR SAMPLER Note by Batsheva Stover [id number] patient confused took oxygen off walked in the room and her sats was 86 on room air put her back on oxygen and in several minutes she came up to 94 on4L reported to RN Initialized on 08/15/22 09:40 - END OF NOTE 08/15/22 09:39 Nursing Note by Skyla Rod 08-15-22 CT SCAN FAXED TO DR ORDAZ (ONCOLOGIST) PER DR MINAYA. HEGNEW 0940 Initialized on 08/15/22 09:39 - END OF NOTE 08/15/22 09:36 Nursing Note by Sunitha Guerra DR ROUNDING ON PT THIS AM, ORDERS RECIEVED TO DISCHARGE HOME WITH OXYGEB THERAPY, FAX COPY OF CT CHEST TO OFFICE OF DR ORDAZ. Initialized on 08/15/22 09:36 - END OF NOTE 08/15/22 06:16 Nursing Note by Mike,Jerry Has been forgetful at times to time and place easily reoriented saying I know that. States that she has been hearing voices in her bathroom with no one present. Asked if she is in pain and said no and said she wants to go home.Has been taking sips of water. Said she does not have any appetite. Initialized on 08/15/22 06:16 - END OF NOTE 08/14/22 18:58 Respiratory Note by Maryann Campbell SpO2 on Room Air @ rest 80%. SpO2 on 4L oxymizer at rest 88%. SpO2 on 5L oxymizer 93% at rest. Initialized on 08/14/22 18:58 - END OF NOTE Code(s): I26.99 - OTHER PULMONARY EMBOLISM WITHOUT ACUTE COR PULMONALE (2) Adenocarcinoma of lung, stage 4 Status: Acute Code(s): C34.90 - MALIGNANT NEOPLASM OF UNSP PART OF UNSP BRONCHUS OR LUNG (3) Acute respiratory failure with hypoxia Status: Acute Code(s): J96.01 - ACUTE RESPIRATORY FAILURE WITH HYPOXIA - Discharge Disposition: HOME HEALTH SERVICE Condition: Stable Prescriptions: New Rivaroxaban 10 mg Tablet [Xarelto 10 mg Tablet] 10 mg PO DAILY #105 tablet Levofloxacin [Levofloxacin 500 MG Tablet] 500 mg PO DAILY #5 tablet Continue Metoprolol Tartrate 25 mg [Lopressor 25MG Tab] 25 mg PO BID Acetaminophen [Tylenol 8 Hour] 2 tab PO Q8H PRN PRN PRN Reason: Headache Prochlorperazine Maleate [Compazine] 10 mg PO Q4HPRN PRN PRN Reason: Nausea Lorazepam 1 mg [Ativan 1 MG] 1 mg PO QHS Folic Acid 1 mg PO DAILY dexAMETHasone [Dexamethasone] 2 mg PO BID Lisinopril/Hydrochlorothiazide [Lisinopril-Hctz 20-12.5 mg Tab] 1 each PO DAILY Fluconazole 100 mg [Diflucan 100 MG] 100 mg PO DAILY Discontinued Smz/Tmp Ds Tablet [Bactrim Ds Tablet] 1 tab PO BID Instructions: Lung Cancer, Generalized Weakness (DC), Brain Metastases Additional Instructions: PLEASE CALL [facility] AT [phone] SOON YOU GET HOME TO SET UP YOUR HOME OXYGEN. Follow up with: VICKI MINAYA MD [Primary Care Provider] - 08/22/22 1:45 pm (FOLLOW UP AT THE [facility]ICE) Forms: Discharge Instructions
== END 2022-08-15 12:45 | disposition home health service (06) ==
LOC: ED 11:28 → MED SURG 17:31
PROVIDERS: ADMIT General Practice; ATTEND General Practice
DX: I26.99 Other pulmonary embolism without acute cor pulmonale (principal); J96.01 Acute respiratory failure with hypoxia; C34.91 Malignant neoplasm of unspecified part of right bronchus or lung; N39.0 Urinary tract infection, site not specified; I10 Essential (primary) hypertension; L89.312 Pressure ulcer of right buttock, stage 2; L89.322 Pressure ulcer of left buttock, stage 2; J44.1 Chronic obstructive pulmonary disease with (acute) exacerbation; Z79.899 Other long term (current) drug therapy; Z20.828 Contact with and (suspected) exposure to other viral communicable diseases; Z85.841 Personal history of malignant neoplasm of brain; Z72.0 Tobacco use
CPT/HCPCS: 0241U; 36000; 36415; 71045; 71260; 80048; 80053; 83605; 83735; 83880; 84145; 84484; 85025; 87040; 93005; 93041; 94640; 94760; 94762; 96365; 96366; 96374; 99285; 93268; J1100; J1956; J2920; A9270-GY; G0378

== ENCOUNTER 2022-08-15 17:24 | Inpatient (IN) | payer MEDICARE, BC ==
[2022-08-15] MEDS ORDERED: Decadron 4 MG INJ ONE ×2 (17:43→18:01)
[2022-08-15] MEDS ORDERED: Zofran 4 MG/2 ML VIAL IV ONE (17:43)
[2022-08-15] MEDS ORDERED: Ativan 2 MG/1 ML VIAL IV ONE ×3 (17:43→18:15)
[2022-08-15] MEDS ORDERED: Ativan 2 MG/1 ML VIAL ONE ×2 (17:43→18:11)
[2022-08-15] MEDS ORDERED: FEVERALL 650 MG PR ONE (17:47)
[2022-08-15] MEDS ORDERED: Decadron 4 MG INJ IV ONE ×2 (17:59→18:00)
[2022-08-15] MEDS ORDERED: Versed 50 MG/ 10 Ml MDV*** 50 MG in Sodium Chloride 0.9% 250 ML 240 ML IV PRN ×3 (18:00→23:42)
[2022-08-15] MEDS ORDERED: FEVERALL 650 MG ONE (18:01)
[2022-08-15] MEDS ORDERED: Zofran 4 MG/2 ML VIAL ONE (18:01)
[2022-08-15 18:04] LABS: Appearance SLIGHTLY CLOUDY (CLEAR); Bilirubin SMALL (NEGATIVE); Dipstick done @ ? MAIN LAB; Glucose NEGATIVE (NEGATIVE); Ketones SMALL-15 (NEGATIVE); Nitrite NEGATIVE (NEGATIVE); Ph 5.5 (5-6); Protein,Urine Dip 30 (Negative); RBC SMALL Ery/ul (0-5); Specific Gravity >=1.030 (1.005-1.025); Urobilinogen 0.2 mg/dL (0-1)
[2022-08-15] MEDS ORDERED: Versed 50 MG/ 10 Ml MDV ONE (18:06)
[2022-08-15] MEDS ORDERED: Sodium Chloride 0.9% 250 ML 250 ML IV ONE (18:06)
[2022-08-15 18:10] LABS: Mucus SLIGHT /HPF (NEGATIVE)
[2022-08-15 18:11] LABS: Urine Cultured Indicated? ORDERED SEPARATELY
--- NOTE | 2022-08-15 18:11 | ERPHSYRPT ---
- History of Present Illness Time Seen by Provider: 08/15/22 17:50 Source: family, EMS Exam Limitations: clinical condition Physician History: This is a 66-year-old white female patient of Dr. Minaya who was recently admitted and discharged to home at her request earlier today. She was admitted on 08/12/2022 for hypoxia. Patient demanded to be discharged to home and therefore was discharged today. While at home she suddenly had a seizure and was postictal when EMS arrived. She was given 5 mg of intravenous Versed. Patient is on dexamethasone orally and Ativan orally. Patient has a history of primary lung cancer with metastasis to the brain. She was diagnosed during this last hospitalization with pulmonary emboli. She was also treated for urinary tract infection prior to and during her hospitalization but did not get sent home with any antibiotics per family history. Patient was scheduled to see hospice tomorrow to make the patient DO NOT RESUSCITATE. Patient arrives breathing on her own with hypoxia and does not communicate. Timing/Duration: today Severity: moderate Character of Deficits: unable to speak Deficits: bed-ridden Baseline/Normal Cognition: alert oriented x 3 Current Cognition: poor alertness Baseline Gait: walks w/o assistance Associated Symptoms: other (Lethargic) Allergies/Adverse Reactions: No Known Drug Allergies Allergy (Verified 08/12/22 11:30) Home Medications: Acetaminophen [Tylenol 8 Hour] 2 tab PO Q8H PRN PRN 05/31/22 [History] Metoprolol Tartrate 25 mg [Lopressor 25MG Tab] 25 mg PO BID 05/31/22 [History] Fluconazole 100 mg [Diflucan 100 MG] 100 mg PO DAILY 08/12/22 [History] Folic Acid 1 mg PO DAILY 08/12/22 [History] Lisinopril/Hydrochlorothiazide [Lisinopril-Hctz 20-12.5 mg Tab] 1 each PO DAILY 08/12/22 [History] Lorazepam 1 mg [Ativan 1 MG] 1 mg PO QHS 08/12/22 [History] Prochlorperazine Maleate [Compazine] 10 mg PO Q4HPRN PRN 08/12/22 [History] dexAMETHasone [Dexamethasone] 2 mg PO BID 08/12/22 [History] Hx Tetanus, Diphtheria Vaccination/Date Given: Yes Hx Influenza Vaccination/Date Given: No Hx Pneumococcal Vaccination/Date Given: No Travel Risk - International Travel Have you traveled outside of the country in past 3 weeks: No - Coronavirus Screening Are you exhibiting any of the following symptoms?: Yes Symptoms: Fever, Shortness of Breath - Vaccine Status Have you recieved a Covid-19 vaccination: Yes [employer]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 - Vaccination Dates Date of 2cond Vaccination (if applicable): 05/2021 - Review of Systems Constitutional: Fever, Lethargy, Weakness Eyes: No Symptoms Ears, Nose, & Throat: No Symptoms Respiratory: Dyspnea Cardiac: No Symptoms Abdominal/Gastrointestinal: No Symptoms Genitourinary Symptoms: No Symptoms Musculoskeletal: No Symptoms Skin: No Symptoms Neurological: Lethargy, Seizure Psychological: No Symptoms Endocrine: No Symptoms Hematologic/Lymphatic: No Symptoms Immunological/Allergic: No Symptoms All Other Systems: Reviewed and Negative - Past Medical History Pertinent Past Medical History: Yes Neurological History: No Pertinent History ENT History: No Pertinent History Cardiac History: High Cholesterol, Hypertension Respiratory History: Lung Cancer Endocrine Medical History: No Pertinent History Musculoskeletal History: No Pertinent History GI Medical History: Gallbladder Disease History: No Pertinent History Psycho-Social History: No Pertinent History Female Reproductive Disorders: No Pertinent History Other Medical History: brain CA - Past Surgical History Past Surgical History: Yes Neuro Surgical History: No Pertinent History Cardiac: No Pertinent History Respiratory: No Pertinent History Gastrointestinal: Cholecystectomy Genitourinary: No Pertinent History Musculoskeletal: No Pertinent History Female Surgical History: No Pertinent History - Social History Smoking Status: Current every day smoker How long have you smoked: 30+ Exposure to second hand smoke: No Drug Use: none Patient Lives Alone: Yes - Nursing Vital Signs Nursing Vital Signs: Initial Vital Signs Temperature 100.3 F 08/15/22 17:24 Pulse Rate 118 H 08/15/22 17:24 Respiratory Rate 33 H 08/15/22 17:24 Blood Pressure 149/98 08/15/22 17:24 O2 Sat by Pulse Oximetry 84 L 08/15/22 17:24 Pain Scale Pain Intensity 0 - [place] Coma Scale Best Eye Response (Rossana): (1) no response Best Verbal Response (Rossana): (1) no verbal response Best Motor Response (Altus): (4) withdraws to pain Altus Total: 6 - Physical Exam General Appearance: lethargy, obese Eye Exam: bilateral eye: normal inspection, PERRL Ears, Nose, Throat Exam: normal ENT inspection, dry mucous membranes Neck Exam: normal inspection, other Respiratory: normal breath sounds, lungs clear, prolonged expirations, No respiratory distress Cardiovascular: regular rate/rhythm, normal heart sounds, normal peripheral pulses Gastrointestinal: soft, normal bowel sounds, No tenderness Rectal Exam: not done Back Exam: normal inspection, normal range of motion, No CVA tenderness Extremity Exam: normal inspection, pelvis stable Mental Status: lethargy Skin Exam: normal color, warm, dry SpO2 Interpretation: normal SpO2: 98 O2 Delivery: Room Air Ordered Tests: Active Orders 24 hr Category Date Time Status 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 Care 08/15/22 17:44 Active Catheter-[place] STAT Care 08/15/22 17:43 Active IV Insertion STAT Care 08/15/22 17:43 Active POCT Glucose Check STAT Care 08/15/22 17:43 Active Pulse Oximetry (ED) STAT Care 08/15/22 17:43 Active HEAD WITHOUT CONTRAST [CT] Stat Exams 08/15/22 17:43 Taken BLOOD CULTURE Stat Lab 08/15/22 19:55 Received CBC W DIFF Stat Lab 08/15/22 18:31 Completed CMP Stat Lab 08/15/22 18:31 Completed CULTURE,URINE Stat Lab 08/15/22 17:48 Received Manual Differential NC Stat Lab 08/15/22 18:31 Completed POCT GLUCOSE Stat Lab 08/15/22 18:45 Completed POTASSIUM, URINE RANDOM Stat Lab 08/15/22 19:16 Completed Sodium, Urine Stat Lab 08/15/22 19:16 Completed UA W/RFX CULTURE Stat Lab 08/15/22 17:48 Completed Transfer Order Routine Transfer 08/15/22 Ordered Medication Summary Generic Name Dose Route Start Last Admin Trade Name Freq PRN Reason Stop Dose Admin Midazolam HCl 50 mg/ Sodium 250 mls @ 0 mls/hr 08/15/22 18:00 Chloride IV 09/14/22 17:59 PRN SEDATION Protocol 0.025 MG/KG/HR Discontinued Medications Generic Name Dose Route Start Last Admin Trade Name Freq PRN Reason Stop Dose Admin Acetaminophen 650 mg 08/15/22 17:47 08/15/22 18:08 Acetaminophen 650 Mg Supp.Rect MS 08/15/22 17:48 650 mg STAT ONE Administration Acetaminophen Confirm 08/15/22 18:01 Acetaminophen 650 Mg Supp.Rect Administered 08/15/22 18:02 Dose 650 mg .ROUTE .STK-MED ONE Dexamethasone Sodium Phosphate Confirm 08/15/22 17:43 Dexamethasone Sod Phosphate 4 Mg/Ml Ml Administered 08/15/22 17:44 Dose 4 mg .ROUTE .STK-MED ONE Dexamethasone Sodium Phosphate 4 mg 08/15/22 17:59 08/15/22 17:45 Dexamethasone Sod Phosphate 4 Mg/Ml Ml IV 08/15/22 18:00 4 mg STAT ONE Administration Dexamethasone Sodium Phosphate 4 mg 08/15/22 18:00 08/15/22 18:04 Dexamethasone Sod Phosphate 4 Mg/Ml Ml IV 08/15/22 18:01 4 mg STAT ONE Administration Dexamethasone Sodium Phosphate Confirm 08/15/22 18:01 Dexamethasone Sod Phosphate 4 Mg/Ml Ml Administered 08/15/22 18:02 Dose 4 mg .ROUTE .STK-MED ONE Sodium Chloride Confirm 08/15/22 18:06 Sodium Chloride 0.9% 250 Ml Administered 08/15/22 18:07 Dose 250 mls @ ud IV .STK-MED ONE Lorazepam Confirm 08/15/22 17:43 Lorazepam 2 Mg/1 Ml 2 Mg Vial Administered 08/15/22 17:44 Dose 2 mg .ROUTE .STK-MED ONE Lorazepam 1 mg 08/15/22 17:43 08/15/22 17:44 Lorazepam 2 Mg/1 Ml 2 Mg Vial IV 08/15/22 17:44 1 mg STAT ONE Administration Lorazepam 1 mg 08/15/22 17:59 08/15/22 18:00 Lorazepam 2 Mg/1 Ml 2 Mg Vial IV 08/15/22 18:00 1 mg STAT ONE Administration Lorazepam Confirm 08/15/22 18:11 Lorazepam 2 Mg/1 Ml 2 Mg Vial Administered 08/15/22 18:12 Dose 2 mg .ROUTE .STK-MED ONE Lorazepam 0.5 mg 08/15/22 18:15 08/15/22 18:16 Lorazepam 2 Mg/1 Ml 2 Mg Vial IV 08/15/22 18:16 0.5 mg STAT ONE Administration Midazolam HCl Confirm 08/15/22 18:06 Midazolam Hcl 50 Mg/10 Ml Vial Administered 08/15/22 18:07 Dose 50 mg .ROUTE .STK-MED ONE Ondansetron HCl 4 mg 08/15/22 17:43 08/15/22 17:46 Ondansetron Hcl 4 Mg/2 Ml Vial IV 08/15/22 17:44 4 mg STAT ONE Administration Ondansetron HCl Confirm 08/15/22 18:01 Ondansetron Hcl 4 Mg/2 Ml Vial Administered 08/15/22 18:02 Dose 4 mg .ROUTE .STK-MED ONE Lab/Rad Data: Laboratory Result Diagrams 08/15/22 18:31 08/15/22 18:31 Laboratory Results 08/15/22 08/15/22 08/15/22 Range/Units 19:16 18:45 18:31 WBC (4.0-10.5) x10^3/uL RBC (4.1-5.4) x10^6/uL Hgb (12.0-16.0) g/dL Hct (35-47) % MCV (78-100) fL MCH (26-32) pg MCHC (32-36) g/dL RDW (11.5-14.0) % Plt Count (150-450) x10^3/uL MPV (7.5-11.0) fL Sodium 124 L (137-145) mmol/L Potassium 3.8 (3.5-5.1) mmol/L Chloride 92 L (98-107) mmol/L Carbon Dioxide 28 (22-30) mmol/L Anion Gap 7.9 (5-15) MEQ/L BUN 27 H (7-17) mg/dL Creatinine 0.84 (0.52-1.04) mg/dL Estimated GFR > 60.0 ML/MIN Glucose 234 H (74-106) mg/dL POC Glucometer 243 H (74 to 106) mg/dL Calcium 8.2 L (8.4-10.2) mg/dL Total Bilirubin 1.00 (0.2-1.3) mg/dL AST 52 H (14-36) U/L ALT 36 H (0-35) U/L Alkaline Phosphatase 63 (38-126) U/L Serum Total Protein 6.1 L (6.3-8.2) g/dL Albumin 3.4 L (3.5-5.0) g/dL Urinalys Dipstick Clnc Urine Color (YELLOW) Urine Appearance (CLEAR) Urine pH (5-6) Ur Specific [place] (1.005-1.025) POC Urine Protein Conf (Negative) Urine Ketones (NEGATIVE) Urine Nitrite (NEGATIVE) Urine Bilirubin (NEGATIVE) Urine Urobilinogen (0-1) mg/dL Urine Leukocytes (NEGATIVE) Urine WBC (Auto) (0-5) /HPF Urine RBC (Auto) (0-2) /HPF U Hyaline Cast (Auto) (0-2) /LPF U Epithel Cells (Auto) (FEW) /HPF Urine Bacteria (Auto) (NEGATIVE) /HPF Urine RBC (0-5) Pedro/ul Urine Mucus (Auto) (NEGATIVE) /HPF Ur Culture Indicated? Urine Sodium 10 L (30-90) mmol/L Urine Potassium 59.5 mmol/L Urine Glucose (NEGATIVE) mg/dL Influenza Type A Ag (NEGATIVE) Influenza Type B Ag (NEGATIVE) RSV (PCR) (Negative) SARS-CoV-2 (PCR) (NEGATIVE) 08/15/22 08/15/22 08/15/22 Range/Units 18:31 18:25 17:48 WBC 21.7 H (4.0-10.5) x10^3/uL RBC 3.03 L (4.1-5.4) x10^6/uL Hgb 10.0 L D (12.0-16.0) g/dL Hct 28.4 L (35-47) % MCV 93.7 (78-100) fL MCH 33.0 H (26-32) pg MCHC 35.2 (32-36) g/dL RDW 17.7 H (11.5-14.0) % Plt Count 163 D (150-450) x10^3/uL MPV 10.5 (7.5-11.0) fL Sodium (137-145) mmol/L Potassium (3.5-5.1) mmol/L Chloride (98-107) mmol/L Carbon Dioxide (22-30) mmol/L Anion Gap (5-15) MEQ/L BUN (7-17) mg/dL Creatinine (0.52-1.04) mg/dL Estimated GFR ML/MIN Glucose (74-106) mg/dL POC Glucometer (74 to 106) mg/dL Calcium (8.4-10.2) mg/dL Total Bilirubin (0.2-1.3) mg/dL AST (14-36) U/L ALT (0-35) U/L Alkaline Phosphatase (38-126) U/L Serum Total Protein (6.3-8.2) g/dL Albumin (3.5-5.0) g/dL Urinalys Dipstick Clnc MAIN LAB Urine Color YELLOW (YELLOW) Urine Appearance SLIGHTLY CLOUDY (CLEAR) Urine pH 5.5 (5-6) Ur Specific Alna >=1.030 (1.005-1.025) POC Urine Protein Conf 30 (Negative) Urine Ketones SMALL-15 (NEGATIVE) Urine Nitrite NEGATIVE (NEGATIVE) Urine Bilirubin SMALL (NEGATIVE) Urine Urobilinogen 0.2 (0-1) mg/dL Urine Leukocytes NEGATIVE (NEGATIVE) Urine WBC (Auto) 16-25 (0-5) /HPF Urine RBC (Auto) 3-5 (0-2) /HPF U Hyaline Cast (Auto) 3-5 (0-2) /LPF U Epithel Cells (Auto) NONE (FEW) /HPF Urine Bacteria (Auto) NONE (NEGATIVE) /HPF Urine RBC SMALL (0-5) Pedro/ul Urine Mucus (Auto) SLIGHT (NEGATIVE) /HPF Ur Culture Indicated? ORDERED SEPARATELY Urine Sodium (30-90) mmol/L Urine Potassium mmol/L Urine Glucose NEGATIVE (NEGATIVE) mg/dL Influenza Type A Ag NEGATIVE (NEGATIVE) Influenza Type B Ag NEGATIVE (NEGATIVE) RSV (PCR) NEGATIVE (Negative) SARS-CoV-2 (PCR) NEGATIVE (NEGATIVE) - Progress Progress: unchanged Progress Note: 08/15/22 18:33 Medical decision making: This patient has metastatic primary lung cancer with mets to the brain. Patient has pulmonary embolus present and he is on Xarelto. She is now seizing. 08/15/22 19:40 CAT scan of the head without contrast shows left cerebellar, left occipital and left parafalcine metastatic masses. There is decreased vasogenic edema. There is no new or acute findings. 08/15/22 20:36 Medical decision making: I spoke with Dr. Frank who is covering for Dr. Minaya this evening. The plan is to place the patient in observation. We will provide her with low rate normal saline solution and keep her on a Versed drip. Patient will be DNR. We will also recheck labs in the morning. Discussed with DrRoberta: Josh Counseled pt/family regarding: lab results, diagnosis, need for follow-up, rad results - Departure Departure Disposition: Observation Clinical Impression: Intractable seizures, Fever, Hyponatremia Condition: Fair Critical Care Time: Yes Critical Care Time(excluding separately billable procedures): Critical 30-74 mins (45) Referrals: VICKI MINAYA MD [Primary Care Provider] - Follow up/PCP as directed
[2022-08-15 18:48] LABS: Hematocrit 28.4 % (35-47); Mean Cell Volume 93.7 fL (78-100); Mean Corpuscular Hgb Concent. 35.2 g/dL (32-36); Mean Platelet Volume 10.5 fL (7.5-11.0); Platelet Count 163 x10^3/uL (150-450); Red Blood Count 3.03 x10^6/uL (4.1-5.4); Red Cell Distribution Width 17.7 % (11.5-14.0); White Blood Count 21.7 x10^3/uL (4.0-10.5)
[2022-08-15 19:03] LABS: ALBUMIN 3.4 g/dL (3.5-5.0); ALKALINE PHOSPHATASE 63 U/L (38-126); ANION GAP 7.9 MEQ/L (5-15); BLOOD UREA NITROGEN 27 mg/dL (7-17); CHLORIDE 92 mmol/L (98-107); Calcium 8.2 mg/dL (8.4-10.2); Carbon Dioxide 28 mmol/L (22-30); Creatinine 1 0.84 mg/dL (0.52-1.04); EST GLOMERULAR FILTRATION RATE > 60.0 ML/MIN; Glucose 234 mg/dL (74-106); Potassium 3.8 mmol/L (3.5-5.1); SGOT/AST 52 U/L (14-36); SGPT/ALT 36 U/L (0-35); SODIUM 124 mmol/L (137-145); Total Protein 6.1 g/dL (6.3-8.2)
[2022-08-15 19:28] LABS: INFLUENZA A NEGATIVE (NEGATIVE); INFLUENZA B NEGATIVE (NEGATIVE); RESPIRATORY SYNCTIAL VIRUS NEGATIVE (Negative); SARS-CoV-2 Xpert Express NEGATIVE (NEGATIVE)
[2022-08-15 19:37] LABS: POTASSIUM, URINE RANDOM 59.5 mmol/L
[2022-08-15] MEDS ORDERED: FEVERALL 650 MG PR PRN (21:56)
[2022-08-15] MEDS ORDERED: Zofran 4 MG/2 ML VIAL IV PRN (21:56)
[2022-08-15] MEDS: Sodium Chloride 0.9% 1000 ML 1,000 ML IV SCH (23:08)
[2022-08-15] MEDS: Decadron 4 MG INJ IV SCH (23:47)
[2022-08-16] MEDS ORDERED: DUONEB 0.5-3 MG/3 ml Neb IH ONE (00:10)
[2022-08-16] MEDS: DUONEB 0.5-3 MG/3 ml Neb IH SCH ×4 (00:15→18:43)
[2022-08-16 00:50] LABS: ANISOCYTOSIS 2+; BAND 3 % (0.0-2.0); Eosinophil 2 % (0.00-3.0); Lymphocytes 16 % (24-44); Monocyte 7 % (0.0-12.0); Nucleated Red Blood Cell 1 %; Platelet Estimate NORMAL (NORMAL); Poikilocytosis 2+; Total Cells Counted 100
[2022-08-16] MEDS ORDERED: MERREM IV ONE (01:31)
[2022-08-16] MEDS ORDERED: Sodium Chloride 100ML MINI-BAG PLUS 100 ML IV ONE (01:32)
[2022-08-16] MEDS ORDERED: MERREM 500 MG in Sodium Chloride 100ML MINI-BAG PLUS 100 ML IV ONE (02:00)
[2022-08-16] MEDS: Decadron 4 MG INJ IV SCH (04:38)
[2022-08-16 04:50] LABS: Hematocrit 27.1 % (35-47); Hemoglobin 9.4 g/dL (12.0-16.0); Mean Cell Volume 94.8 fL (78-100); Mean Corpuscular Hemoglobin 32.9 pg (26-32); Mean Corpuscular Hgb Concent. 34.7 g/dL (32-36); Mean Platelet Volume 10.4 fL (7.5-11.0); Platelet Count 178 x10^3/uL (150-450); Red Blood Count 2.86 x10^6/uL (4.1-5.4); Red Cell Distribution Width 17.9 % (11.5-14.0); White Blood Count 23.7 x10^3/uL (4.0-10.5)
[2022-08-16 05:05] LABS: ALBUMIN 2.9 g/dL (3.5-5.0); ANION GAP 4.4 MEQ/L (5-15); BILIRUBIN,TOTAL 0.7 mg/dL (0.2-1.3); Calcium 7.9 mg/dL (8.4-10.2); Creatinine 1 1.09 mg/dL (0.52-1.04); EST GLOMERULAR FILTRATION RATE 53.1 ML/MIN; Total Protein 5.5 g/dL (6.3-8.2)
[2022-08-16 05:33] LABS: BAND 6 % (0.0-2.0); Lymphocytes 22 % (24-44); Macrocytosis 1+; Metamyelocyte 3 %; Microcytosis 1+; Monocyte 2 % (0.0-12.0); Myelocyte 4 %; Nucleated Red Blood Cell 13 %; Platelet Estimate NORMAL (NORMAL); Total Cells Counted 100
--- NOTE | 2022-08-16 08:40 | XRAY ---
Indication: Seizure. History lung cancer with brain metastasis. Multiple contiguous axial images obtained through the head without contrast. Comparison: May 31, 2022 Again age-appropriate global atrophy and remote lacunar infarct left basal ganglia. Previous left parafalcine, left occipital, and left cerebellar metastatic masses appear smaller with also diminished vasogenic edema presumed post-therapeutic. No acute intraconal hemorrhage, abnormal extra-axial fluid collection, mass effect. Fourth ventricle is midline without hydrocephalus. Bony calvarium intact. Visualized paranasal sinuses and mastoid air cells are clear. Impression: Previous metastatic masses are smaller with also diminished vasogenic edema. Stable atrophy and remote lacunar infarct left basal ganglia. No new/acute intracranial abnormalities.
[2022-08-16] MEDS ORDERED: PHARMACY DOSING REQUEST MC ONE (08:56)
[2022-08-16] MEDS: HYDROMORPHONE IV PRN (10:12)
[2022-08-16] MEDS: SODIUM CHLORIDE 0.9% IV PRN (10:12)
[2022-08-16] MEDS ORDERED: Decadron 4 MG INJ IV SCH (12:00)
[2022-08-16] MEDS: Sodium Chloride 0.9% 1000 ML 1,000 ML IV SCH (18:26)
[2022-08-16] MEDS ORDERED: Advair Hfa 115/21 Mcg Inhaler IH ONE (18:53)
--- NOTE | 2022-08-16 20:38 | PCM.HP ---
History of Present Illness - Chief Complaint Chief Complaint: LUNG CA WITH METS TO BRAIN, SEIZURE ACTIVITY History of Present Illness: is a 66 year old female.who was recently admitted and discharged to home at her request earlier today. She was admitted on 08/12/2022 for hypoxia. Patient demanded to be discharged to home and therefore was discharged today. While at home she suddenly had a seizure and was postictal when EMS arrived. She was given 5 mg of intravenous Versed. Patient is on dexamethasone orally and Ativan orally. Patient has a history of primary lung cancer with metastasis to the brain. She was diagnosed during this last hospitalization with pulmonary emboli. She was also treated for urinary tract infection prior to and during her hospitalization but did not get sent home with any antibiotics per family history. Patient was scheduled to see hospice tomorrow to make the patient DO NOT RESUSCITATE. Patient arrives breathing on her own with hypoxia and does not communicate. Timing/Duration: today Severity: moderate Character of Deficits: unable to speak Deficits: bed-ridden Baseline/Normal Cognition: alert oriented x 3 Current Cognition: poor alertness Baseline Gait: walks w/o assistance Associated Symptoms: other (Lethargic) - Review of Systems All Other Systems: Unable due to condition Medications & Allergies Home Medications: Home Medication List Acetaminophen [Tylenol 8 Hour] 2 tab PO Q8H PRN PRN 05/31/22 [History Confirmed 08/16/22] Metoprolol Tartrate 25 mg [Lopressor 25MG Tab] 25 mg PO BID 05/31/22 [History Confirmed 08/16/22] Fluconazole 100 mg [Diflucan 100 MG] 100 mg PO DAILY 08/12/22 [History Confirmed 08/16/22] Folic Acid 1 mg PO DAILY 08/12/22 [History Confirmed 08/16/22] Lisinopril/Hydrochlorothiazide [Lisinopril-Hctz 20-12.5 mg Tab] 1 each PO DAILY 08/12/22 [History Confirmed 08/16/22] Lorazepam 1 mg [Ativan 1 MG] 1 mg PO QHS 08/12/22 [History Confirmed 08/16/22] Prochlorperazine Maleate [Compazine] 10 mg PO Q4HPRN PRN 08/12/22 [History Confirmed 08/16/22] dexAMETHasone [Dexamethasone] 2 mg PO BID 08/12/22 [History Confirmed 08/16/22] Levofloxacin [Levofloxacin 500 MG Tablet] 500 mg PO DAILY #5 tablet 08/15 [Rx Confirmed 08/16/22] Rivaroxaban 10 mg Tablet [Xarelto 10 mg Tablet] 10 mg PO DAILY #105 tablet 08/15/22 [Rx Confirmed 08/16/22] Allergies/Adverse Reactions: Allergies Allergy/AdvReac Type Severity Reaction Status Date / Time No Known Drug Allergies Allergy Verified 08/12/22 11:30 - Past Medical History Past Medical History: Yes Neurological History: No Pertinent History ENT History: No Pertinent History Cardiac History: High Cholesterol, Hypertension Respiratory History: Lung Cancer Endocrine Medical History: No Pertinent History Musculoskelatal History: No Pertinent History GI Medical History: Gallbladder Disease History: No Pertinent History Pyscho-Social History: No Pertinent History Reproductive Disorders: No Pertinent History Comment: brain CA - Female History Are you now?: No - Past Surgical History Past Surgical History: Yes Neuro Surgical History: No Pertinent History Cardiac History: No Pertinent History Respiratory Surgery: No Pertinent History GI Surgical History: Cholecystectomy Genitourinary Surgical Hx: No Pertinent History Musculskeletal Surgical Hx: No Pertinent History Female Surgical History: No Pertinent History Other Surgical History: Patient is currently non-responsive; all surgeries taken from patient history at this time - Social History Smoking Status: Current every day smoker How long have you smoked: 30+ Exposure to second hand smoke: No Alcohol: None Drug Use: none - Physical Exam Vital Signs: Vital Signs - 24 hr Temp Pulse Resp BP BP Pulse Ox 08/16/22 17:00 100.8 F 125 H 29 H 122/68 97 08/16/22 16:00 100.9 F 125 H 28 H 129/81 98 08/16/22 14:52 101.1 F 121 H 28 H 113/64 98 08/16/22 14:00 100.8 F 113 H 38 H 124/77 98 08/16/22 13:00 100.8 F 112 H 29 H 95/64 98 08/16/22 12:57 105 H 30 H 95 08/16/22 12:00 100.8 F 104 H 34 H 108/65 97 08/16/22 11:00 100.9 F 101 H 39 H 104/69 99 08/16/22 10:00 100.9 F 98 H 48 H 121/73 100 08/16/22 09:00 100.9 F 97 H 41 H 111/64 100 08/16/22 08:00 100.8 F 103 H 45 H 115/66 106/65 100 08/16/22 07:00 100.6 F 105 H 43 H 117/68 100 08/16/22 06:29 95 H 34 H 99 08/16/22 06:00 100.4 F 94 H 40 H 122/74 98 08/16/22 05:00 100.2 F 91 H 36 H 125/72 99 08/16/22 04:00 100 F 90 39 H 121/69 99 08/16/22 03:00 99.9 F 92 H 29 H 123/72 99 08/16/22 02:00 100 F 88 25 H 106/65 99 08/16/22 01:00 100 F 92 H 32 H 125/75 98 08/16/22 00:15 97 H 35 H 98 08/16/22 00:01 92 H 08/16/22 00:00 100 F 95 H 30 H 106/65 98 08/15/22 22:27 101.3 F 112 H 39 H 172/98 97 08/15/22 21:56 97 08/15/22 21:00 119 H 169/102 08/15/22 20:42 98 General Appearance: severe distress Neurologic Exam: other (unconscious) Eye Exam: post op pupil defect (L), post op pupil defect (R) Ears, Nose, Throat Exam: normal ENT inspection Neck Exam: normal inspection Respiratory Exam: respiratory distress, accessory muscle use, prolonged expirations Cardiovascular Exam: tachycardia Gastrointestinal/Abdomen Exam: soft Pelvic Exam: deferred Back Exam: normal inspection Extremity Exam: normal inspection Skin Exam: dry Wound Assessment: Skin/Wound Assessment Wound/Incision Assessment Start: 08/15/22 22:54 Text: Status: Active Freq: Q6H Protocol: Document 08/16/22 16:00 BELINDA (Rec: 08/16/22 17:14 RDNE [id number]) Wound/Incision Assessment Left Posterior Buttock Wound Assessment Shift Assessment Wound Type Pressure Ulcer Wound Stage Stage II Drainage Amount None Drainage Odor None/Absent General Appearance Open to air,Reddened Length (cm) (cm) 5.5 Width (cm) (cm) 4 Wound Bed Greatest Portion Red (Granulation),Pale [place] Wound Bed Lesser Portion Red (Granulation) Surrounding Tissue [place] Comment Barrier cream applied to both areas, pt turned and repositioned. Right Posterior Buttock Wound Assessment Shift Assessment Wound Type Pressure Ulcer Wound Stage Stage II Drainage Amount None Drainage Odor None/Absent General Appearance Open to air,Reddened Length (cm) (cm) 6 Width (cm) (cm) 4.5 Wound Bed Greatest Portion Red (Granulation),Pale [place] Wound Bed Lesser Portion Red (Granulation) Surrounding Tissue [place] Wound Photo Photo Taken Yes Date: 08/15/22 Time: 23:59 Distance from Wound: approx 1 ft Results - Labs Lab/Micro Results: Lab Results-Last 24 Hours 08/15/22 08/16/22 08/16/22 Range/Units 18:31 04:00 04:30 WBC 23.7 H (4.0-10.5) x10^3/uL Corrected WBC (auto) 21.0 K/mm3 RBC 2.86 L (4.1-5.4) x10^6/uL Hgb 9.4 L (12.0-16.0) g/dL Hct 27.1 L (35-47) % MCV 94.8 (78-100) fL MCH 32.9 H (26-32) pg MCHC 34.7 (32-36) g/dL RDW 17.9 H (11.5-14.0) % Plt Count 178 (150-450) x10^3/uL MPV 10.4 (7.5-11.0) fL Segmented Neutrophils 72 H 63 (36.0-66.0) % Band Neutrophils 3 H 6 H (0.0-2.0) % Lymphocytes (Manual) 16 L 22 L (24-44) % Monocytes (Manual) 7 2 (0.0-12.0) % Eosinophils (Manual) 2 (0.00-3.0) % Metamyelocytes 3 % Myelocytes 4 % Nucleated RBCs 1 13 % Platelet Estimate NORMAL NORMAL (NORMAL) RBC Morphology ABNORMAL ABNORMAL Poikilocytosis 2+ Anisocytosis 2+ Microcytosis 1+ Macrocytosis 1+ Sodium (137-145) mmol/L Potassium (3.5-5.1) mmol/L Chloride (98-107) mmol/L Carbon Dioxide (22-30) mmol/L Anion Gap (5-15) MEQ/L BUN (7-17) mg/dL Creatinine (0.52-1.04) mg/dL Estimated GFR ML/MIN Glucose (74-106) mg/dL Calcium (8.4-10.2) mg/dL Total Bilirubin (0.2-1.3) mg/dL AST (14-36) U/L ALT (0-35) U/L Alkaline Phosphatase (38-126) U/L Serum Total Protein (6.3-8.2) g/dL Albumin (3.5-5.0) g/dL Prealbumin 21.45 (17.6-36.0) mg/dL 08/16/22 Range/Units 04:30 WBC (4.0-10.5) x10^3/uL Corrected WBC (auto) K/mm3 RBC (4.1-5.4) x10^6/uL Hgb (12.0-16.0) g/dL Hct (35-47) % MCV (78-100) fL MCH (26-32) pg MCHC (32-36) g/dL RDW (11.5-14.0) % Plt Count (150-450) x10^3/uL MPV (7.5-11.0) fL Segmented Neutrophils (36.0-66.0) % Band Neutrophils (0.0-2.0) % Lymphocytes (Manual) (24-44) % Monocytes (Manual) (0.0-12.0) % Eosinophils (Manual) (0.00-3.0) % Metamyelocytes % Myelocytes % Nucleated RBCs % Platelet Estimate (NORMAL) RBC Morphology Poikilocytosis Anisocytosis Microcytosis Macrocytosis Sodium 125 L (137-145) mmol/L Potassium 4.0 (3.5-5.1) mmol/L Chloride 94 L (98-107) mmol/L Carbon Dioxide 31 H (22-30) mmol/L Anion Gap 4.4 L (5-15) MEQ/L BUN 34 H (7-17) mg/dL Creatinine 1.09 H (0.52-1.04) mg/dL Estimated GFR 53.1 ML/MIN Glucose 218 H (74-106) mg/dL Calcium 7.9 L (8.4-10.2) mg/dL Total Bilirubin 0.70 (0.2-1.3) mg/dL AST 44 H (14-36) U/L ALT 41 H (0-35) U/L Alkaline Phosphatase 57 (38-126) U/L Serum Total Protein 5.5 L (6.3-8.2) g/dL Albumin 2.9 L (3.5-5.0) g/dL Prealbumin (17.6-36.0) mg/dL Microbiology 08/15/22 17:48 Urine Culture - Preliminary Catherized NO GROWTH TO DATE - Radiology Impressions Radiology Exams & Impressions: Radiology Procedures Category Date Time Status HEAD WITHOUT CONTRAST [CT] Stat Exams 08/15/22 17:[address]/HEAD WITHOUT CONTRAST Indication: Seizure. History lung cancer with brain metastasis. Multiple contiguous axial images obtained through the head without contrast. Comparison: May 31, 2022 Again age-appropriate global atrophy and remote lacunar infarct left basal ganglia. Previous left parafalcine, left occipital, and left cerebellar metastatic masses appear smaller with also diminished vasogenic edema presumed post-therapeutic. No acute intraconal hemorrhage, abnormal extra-axial fluid collection, mass effect. Fourth ventricle is midline without hydrocephalus. Bony calvarium intact. Visualized paranasal sinuses and mastoid air cells are clear. Impression: Previous metastatic masses are smaller with also diminished vasogenic edema. Stable atrophy and remote lacunar infarct left basal ganglia. No new/acute intracranial abnormalities. - Other Procedures and Tests Respiratory Therapy 08/15/22 23:27 Oxygen Non-rebreather 15% Respiratory Therapy Assessment DAILY Assessment/Plan (1) Intractable seizures Current Visit: Yes Status: Acute Assessment & Plan: Chief Complaint Diagnosis LUNG CA WITH METS TO BRAIN, SEIZURE ACTIVITY Allergies Allergy/AdvReac Type Severity Reaction Status Date / Time No Known Drug Allergies Allergy Verified 08/12/22 11:30 Vital Signs (Last 24 hours) Temp Pulse Resp BP BP Pulse Ox 08/16/22 17:00 100.8 F 125 H 29 H 122/68 97 08/16/22 16:00 100.9 F 125 H 28 H 129/81 98 08/16/22 14:52 101.1 F 121 H 28 H 113/64 98 08/16/22 14:00 100.8 F 113 H 38 H 124/77 98 08/16/22 13:00 100.8 F 112 H 29 H 95/64 98 08/16/22 12:57 105 H 30 H 95 08/16/22 12:00 100.8 F 104 H 34 H 108/65 97 08/16/22 11:00 100.9 F 101 H 39 H 104/69 99 08/16/22 10:00 100.9 F 98 H 48 H 121/73 100 08/16/22 09:00 100.9 F 97 H 41 H 111/64 100 08/16/22 08:00 100.8 F 103 H 45 H 115/66 106/65 100 08/16/22 07:00 100.6 F 105 H 43 H 117/68 100 08/16/22 06:29 95 H 34 H 99 08/16/22 06:00 100.4 F 94 H 40 H 122/74 98 08/16/22 05:00 100.2 F 91 H 36 H 125/72 99 08/16/22 04:00 100 F 90 39 H 121/69 99 08/16/22 03:00 99.9 F 92 H 29 H 123/72 99 08/16/22 02:00 100 F 88 25 H 106/65 99 08/16/22 01:00 100 F 92 H 32 H 125/75 98 08/16/22 00:15 97 H 35 H 98 08/16/22 00:01 92 H 08/16/22 00:00 100 F 95 H 30 H 106/65 98 08/15/22 22:27 101.3 F 112 H 39 H 172/98 97 08/15/22 21:56 97 08/15/22 21:00 119 H 169/102 08/15/22 20:42 98 Current Medications Generic Name Dose Route Start Last Admin Trade Name Freq PRN Reason Stop Dose Admin Acetaminophen 650 mg 08/15/22 21:56 Acetaminophen 650 Mg Supp.Rect MI 09/14/22 21:55 Q4H PRN PRN PAIN AND/OR FEVER Albuterol/Ipratropium 3 ml 08/16/22 01:00 08/16/22 18:43 Ipratropium/Albuterol Sulfate 3 Ml Ampul.Neb IH 09/15/22 00:59 3 ml Q6HRT OLIVA Administration Sodium Chloride 1,000 mls @ 50 mls/hr 08/15/22 21:56 08/16/22 18:26 Sodium Chloride 0.9% 1000 Ml IV 09/14/22 21:55 50 mls/hr .Q20H OLIVA Administration Hydromorphone HCl 20 mg/ 100 mls @ 2.5 mls/hr 08/16/22 09:42 08/16/22 10:12 Sodium Chloride IV 09/15/22 10:00 2.5 mls/hr PRN PRN Administration Midazolam HCl 50 mg/ Dextrose 250 mls @ 2 mls/hr 08/16/22 17:30 IV 09/15/22 17:29 Q24H OLIVA Ondansetron HCl 4 mg 08/15/22 21:56 Ondansetron Hcl 4 Mg/2 Ml Vial IV 09/14/22 21:55 Q6H PRN PRN NAUSEA/VOMITING Discontinued Medications Generic Name Dose Route Start Last Admin Trade Name Freq PRN Reason Stop Dose Admin Acetaminophen 650 mg 08/15/22 17:47 08/15/22 18:08 Acetaminophen 650 Mg Supp.Rect MI 08/15/22 17:48 650 mg STAT ONE Administration Acetaminophen Confirm 08/15/22 18:01 Acetaminophen 650 Mg Supp.Rect Administered 08/15/22 18:02 Dose 650 mg .ROUTE .STK-MED ONE Albuterol/Ipratropium Confirm 08/16/22 00:10 Ipratropium/Albuterol Sulfate 3 Ml Ampul.Neb Administered 08/16/22 00:11 Dose 3 ml IH .STK-MED ONE Dexamethasone Sodium Phosphate Confirm 08/15/22 17:43 Dexamethasone Sod Phosphate 4 Mg/Ml Ml Administered 08/15/22 17:44 Dose 4 mg .ROUTE .STK-MED ONE Dexamethasone Sodium Phosphate 4 mg 08/15/22 17:59 08/15/22 17:45 Dexamethasone Sod Phosphate 4 Mg/Ml Ml IV 08/15/22 18:00 4 mg STAT ONE Administration Dexamethasone Sodium Phosphate 4 mg 08/15/22 18:00 08/15/22 18:04 Dexamethasone Sod Phosphate 4 Mg/Ml Ml IV 08/15/22 18:01 4 mg STAT ONE Administration Dexamethasone Sodium Phosphate Confirm 08/15/22 18:01 Dexamethasone Sod Phosphate 4 Mg/Ml Ml Administered 08/15/22 18:02 Dose 4 mg .ROUTE .STK-MED ONE Dexamethasone Sodium Phosphate 4 mg 08/15/22 21:56 08/16/22 04:38 Dexamethasone Sod Phosphate 4 Mg/Ml Ml IV 09/14/22 21:55 4 mg Q6H OLIVA Administration Dexamethasone Sodium Phosphate 4 mg 08/16/22 12:00 Dexamethasone Sod Phosphate 4 Mg/Ml Ml IV 09/15/22 11:59 Q6HT OLIVA Sodium Chloride Confirm 08/15/22 18:06 Sodium Chloride 0.9% 250 Ml Administered 08/15/22 18:07 Dose 250 mls @ ud IV .STK-MED ONE Midazolam HCl 50 mg/ Sodium 250 mls @ 8.95 mls/hr 08/15/22 23:42 08/16/22 17:00 Chloride IV 09/14/22 23:41 0.01 mg/kg/hr .Q24H PRN 2 mls/hr SEDATION Titration Protocol 0.025 MG/KG/HR Meropenem 500 mg/ Sodium 100 mls @ 200 mls/hr 08/16/22 02:00 08/16/22 01:40 Chloride IV 08/16/22 02:29 200 mls/hr ONCE ONE Administration Sodium Chloride Confirm 08/16/22 01:32 Sodium Chloride 100ml Mini-Bag Plus Administered 08/16/22 01:33 Dose 100 mls @ ud IV .STK-MED ONE Lorazepam Confirm 08/15/22 17:43 Lorazepam 2 Mg/1 Ml 2 Mg Vial Administered 08/15/22 17:44 Dose 2 mg .ROUTE .STK-MED ONE Lorazepam 1 mg 08/15/22 17:43 08/15/22 17:44 Lorazepam 2 Mg/1 Ml 2 Mg Vial IV 08/15/22 17:44 1 mg STAT ONE Administration Lorazepam 1 mg 08/15/22 17:59 08/15/22 18:00 Lorazepam 2 Mg/1 Ml 2 Mg Vial IV 08/15/22 18:00 1 mg STAT ONE Administration Lorazepam Confirm 08/15/22 18:11 Lorazepam 2 Mg/1 Ml 2 Mg Vial Administered 08/15/22 18:12 Dose 2 mg .ROUTE .STK-MED ONE Lorazepam 0.5 mg 08/15/22 18:15 08/15/22 18:16 Lorazepam 2 Mg/1 Ml 2 Mg Vial IV 08/15/22 18:16 0.5 mg STAT ONE Administration Meropenem Confirm 08/16/22 01:31 Meropenem 500 Mg Vial Administered 08/16/22 01:32 Dose 500 mg IV .STK-MED ONE Midazolam HCl Confirm 08/15/22 18:06 Midazolam Hcl 50 Mg/10 Ml Vial Administered 08/15/22 18:07 Dose 50 mg .ROUTE .STK-MED ONE Non-Formulary Medication 1 each 08/16/22 08:56 Pharmacy Dosing Request MC 08/16/22 08:57 STAT ONE Ondansetron HCl 4 mg 08/15/22 17:43 08/15/22 17:46 Ondansetron Hcl 4 Mg/2 Ml Vial IV 08/15/22 17:44 4 mg STAT ONE Administration Ondansetron HCl Confirm 08/15/22 18:01 Ondansetron Hcl 4 Mg/2 Ml Vial Administered 08/15/22 18:02 Dose 4 mg .ROUTE .STK-MED ONE Fluticasone/Salmeterol Confirm 08/16/22 18:53 Fluticasone/Salmeterol 120 Puff Aer.W.Adap Administered 08/16/22 18:54 Dose 1 puff IH .STK-MED ONE Intake & Output (Last 24 hours) 08/14/22 08/15/22 08/16/22 08/17/22 11:59 11:59 11:59 11:59 Intake Total 477 657 Output Total 650 Balance -173 657 Weight 71.6 kg Microbiology Results (Last 24 hours) 08/15/22 17:48 Catherized Urine Culture - Preliminary NO GROWTH TO DATE 08/15/22 19:55 Blood Blood Culture Gram Stain - Pending 08/15/22 19:55 Blood Blood Culture - Pending 08/15/22 18:31 Blood Blood Culture Gram Stain - Pending 08/15/22 18:31 Blood Blood Culture - Pending Laboratory Results (Last 24 hours) 08/16/22 08/16/22 08/16/22 04:30 04:30 04:00 WBC 23.7 H Corrected WBC (auto) 21.0 RBC 2.86 L Hgb 9.4 L Hct 27.1 L MCV 94.8 MCH 32.9 H MCHC 34.7 RDW 17.9 H Plt Count 178 MPV 10.4 Segmented Neutrophils 63 Band Neutrophils 6 H Lymphocytes (Manual) 22 L Monocytes (Manual) 2 Eosinophils (Manual) Metamyelocytes 3 Myelocytes 4 Nucleated RBCs 13 Platelet Estimate NORMAL RBC Morphology ABNORMAL Poikilocytosis Anisocytosis Microcytosis 1+ Macrocytosis 1+ Sodium 125 L Potassium 4.0 Chloride 94 L Carbon Dioxide 31 H Anion Gap 4.4 L BUN 34 H Creatinine 1.09 H Estimated GFR 53.1 Glucose 218 H Calcium 7.9 L Total Bilirubin 0.70 AST 44 H ALT 41 H Alkaline Phosphatase 57 Serum Total Protein 5.5 L Albumin 2.9 L Prealbumin 21.45 08/15/22 18:31 WBC Corrected WBC (auto) RBC Hgb Hct MCV MCH MCHC RDW Plt Count MPV Segmented Neutrophils 72 H Band Neutrophils 3 H Lymphocytes (Manual) 16 L Monocytes (Manual) 7 Eosinophils (Manual) 2 Metamyelocytes Myelocytes Nucleated RBCs 1 Platelet Estimate NORMAL RBC Morphology ABNORMAL Poikilocytosis 2+ Anisocytosis 2+ Microcytosis Macrocytosis Sodium Potassium Chloride Carbon Dioxide Anion Gap BUN Creatinine Estimated GFR Glucose Calcium Total Bilirubin AST ALT Alkaline Phosphatase Serum Total Protein Albumin Prealbumin Orders (Last 24 hours) Category Date Time Status Bedrest TOLERATED Activity 08/15/22 21:56 Active Admission Status Change [Change to Full Admit] ROUTINE Care 08/16/22 09:00 Active Code Status Order ROUTINE Care 08/15/22 21:56 Active Elevate HOB TOLERATED Care 08/15/22 21:56 Active Nursing [Miscellaneous Nursing Order] ROUTINE Care 08/15/22 21:[address] in Observation ROUTINE Care 08/15/22 21:56 Active Telemetry Q4H Care 08/15/22 21:56 Active Infection Control Consult ROUTINE Cons 08/15/22 22:54 Active [employer] Weaver/Discharge Plan ROUTINE Cons 08/15/22 22:54 Active NPO Diet 08/15/22 21:56 Active Nutritional Admission Screen ONCE Diet 08/15/22 22:54 Active BLOOD CULTURE Stat Lab 08/15/22 19:55 Received CBC W DIFF AM.LAB Lab 08/16/22 04:00 Completed CMP AM.LAB Lab 08/16/22 04:30 Completed Manual Differential NC Routine Lab 08/16/22 04:00 Completed PREALBUMIN Routine Lab 08/15/22 22:54 Completed Acetaminophen 650 mg [Feverall 650 mg] Med 08/15/22 21:56 Active 650 mg MI Q4H PRN PRN Albuterol/Ipratropium 3ml Neb* [DUONEB 0.5-3 MG/3 ml Med 08/16/22 00:10 Discontinued Neb] 3 ml IH .STK-MED ONE Albuterol/Ipratropium 3ml Neb* [DUONEB 0.5-3 MG/3 ml Med 08/16/22 01:00 Active Neb] 3 ml IH Q6HRT Dexamethasone 4 mg [Decadron 4 MG INJ] Med 08/15/22 21:56 Discontinued 4 mg IV Q6H Dexamethasone 4 mg [Decadron 4 MG INJ] Med 08/16/22 12:00 Discontinued 4 mg IV Q6HT Fluticasone/Salmeterol 115/21* [Advair Hfa 115/21 Mcg Med 08/16/22 18:53 Discontinued Inhaler] 1 puff IH .STK-MED ONE Hydromorphone HCl/Pf [Hydromorphone 10 mg/ml Vial] 20 Med 08/16/22 09:42 Active mg NaCl 0.9% [Sodium Chloride 0.9%] 98 ml IV PRN Meropenem [Merrem] Med 08/16/22 01:31 Discontinued 500 mg IV .STK-MED ONE Meropenem [Merrem] 500 mg Med 08/16/22 02:00 Discontinued NaCl 0.9% 100 ml Mini-Bag Plus [Sodium Chloride 100ML MINI-BAG PLUS] 100 ml IV ONCE Midazolam HCl 50 mg/10 ml Mdv* [Versed 50 MG/ 10 Ml MDV Med 08/16/22 17:30 Active ] 50 mg D5w 250 ml [Dextrose 5%/Water IV Soln. 250 ML] 240 ml IV Q24H NaCl 0.9% 100 ml Mini-Bag Plus [Sodium Chloride 100ML Med 08/16/22 01:32 Discontinued MINI-BAG PLUS] 100 ml IV UD NaCl 0.9% 1000 ml [Sodium Chloride 0.9% 1000 ML] 1,000 Med 08/15/22 21:56 Active ml IV 50 mls/hr NaCl 0.9% 250 ml [Sodium Chloride 0.9% 250 ML] 240 ml Med 08/15/22 23:42 Discontinued Midazolam HCl 50 mg/10 ml Mdv* [Versed 50 MG/ 10 Ml MDV ] 50 mg IV 0.025 mg/kg/hr Ondansetron HCl 4 mg/2 ml [Zofran 4 MG/2 ML VIAL] Med 08/15/22 21:56 Active 4 mg IV Q6H PRN PRN Pharmacy Dosing Request Med 08/16/22 08:56 Discontinued 1 each MC STAT ONE OT Screen per Nursing Assess ONCE OT 08/15/22 22:54 Active PT Screen per Nursing Assess ONCE PT 08/15/22 22:54 Active Oxygen Non-rebreather 15% RT 08/15/22 23:27 Active Pulse Oximetry ROUTINE RT 08/15/22 21:56 Active Respiratory Therapy Assessment DAILY RT 08/15/22 23:27 Active Respiratory Therapy Consult ROUTINE RT 08/15/22 21:56 Completed Transfer Order Routine Transfer 08/16/22 Completed Patient Care Notes (Last 24 hours) 08/16/22 09:38 Case Management Note by Arcelia Pittman SPOKE WITH DR MINAYA, FAMILY PLANS TO DISCUSS HOSPICE WITH HIM FOR FUTURE PLANS, BUT PLAN TO CONTINUE WITH CURRENT PLAN OF CARE AT THIS TIME. HE WILL BE HERE AROUND NOON TO ROUND AND FURTHER DISCUSS PLANS WITH PT AND FAMILY . Initialized on 08/16/22 09:38 - END OF NOTE 08/15/22 23:50 Nursing Note by Rena Coleman [id number] HELD D/T PATIENT RECEIVING DOSE IN THE ER. Initialized on 08/15/22 23:50 - END OF NOTE 08/15/22 23:13 Nursing Note by Rena Coleman Versed 0.4mg/ml or 2ml/hr infusing per right chest port. NS 0.9% maintenance fluids infusing at 50ml/hr. pt currently nonresponsive, resp sl labored with snoring respirations. Lungs coarse bilat. pt continued at 15L per nonrebreather. nonpitting edema to bilat lower extremities. ABD soft with active bowel sounds, daughter states its been 4-5 days since last BM. Pt has a stage two decubitus ulcer to the right buttock measuring 6cmx4.5cm, no drainage noted. periwound pink, dry. barrier cream applied and pt turned to right side. Stage two also on Left buttock measuring 5.5cmx4.0cm, no drainage noted, periwound pink. barrier cream applied. daughers at bedside. F/C patent and drng clear yellow urine. Central line dressing changed to right port at this time. Initialized on 08/15/22 23:13 - END OF NOTE Code(s): G40.919 - EPILEPSY, UNSP, INTRACTABLE, WITHOUT STATUS EPILEPTICUS (2) Adenocarcinoma of lung, stage 4 Current Visit: Yes Status: Chronic Qualifiers: Code(s): C34.90 - MALIGNANT NEOPLASM OF UNSP PART OF UNSP BRONCHUS OR LUNG (3) Brain mass Current Visit: Yes Status: Chronic Code(s): G93.89 - OTHER SPECIFIED DISORDERS OF BRAIN
[2022-08-17] MEDS: DUONEB 0.5-3 MG/3 ml Neb IH SCH (01:05)
[2022-08-17] MEDS: Sodium Chloride 0.9% 1000 ML 1,000 ML IV SCH (14:40)
--- NOTE | 2022-08-17 17:39 | PCM.NOTE ---
Date and Time: 08/17/22 1736 Subjective Assessment: unresponsive - Review of Systems All Other Systems: Unable due to condition Objective Exam General Appearance: no apparent distress Neurologic Exam: other (unresponsive) Wound Assessment: Skin/Wound Assessment Wound/Incision Assessment Start: 08/15/22 22:54 Text: Status: Active Freq: Q6H Protocol: Document 08/17/22 10:00 RDUHNE (Rec: 08/17/22 10:50 [email or web address] [id number]) Wound/Incision Assessment Left Posterior Buttock Wound Assessment Shift Assessment Wound Type Pressure Ulcer Wound Stage Stage II Drainage Amount None Drainage Odor None/Absent General Appearance Open to air,Reddened Length (cm) (cm) 5.5 Width (cm) (cm) 4 Wound Bed Greatest Portion Red (Granulation),Pale [place] Wound Bed Lesser Portion Red (Granulation) Surrounding Tissue [place] Comment . Right Posterior Buttock Wound Assessment Shift Assessment Wound Type Pressure Ulcer Wound Stage Stage II Drainage Amount None Drainage Odor None/Absent General Appearance Open to air,Reddened Length (cm) (cm) 6 Width (cm) (cm) 4.5 Wound Bed Greatest Portion Red (Granulation),Pale [place] Wound Bed Lesser Portion Red (Granulation) Surrounding Tissue [place] Wound Photo Photo Taken Yes Date: 08/15/22 Time: 23:59 Distance from Wound: approx 1 ft Respiratory Exam: diminished breath sounds OBJECTIVE DATA Vital Signs: Vital Signs - 24 hr Temp Pulse Resp BP Pulse Ox 08/17/22 13:00 101.7 F 130 H 20 87/47 97 08/17/22 09:00 101.7 F 130 H 16 91/49 96 08/17/22 06:40 122 H 22 96 08/17/22 05:03 101.7 F 112 H 24 71/41 98 08/17/22 04:00 101.3 F 110 H 20 98 08/17/22 01:05 120 H 25 H 96 08/16/22 23:59 101.3 F 120 H 24 88/53 92 L 08/16/22 20:00 100.9 F 110 H 31 H 110/59 95 08/16/22 18:38 124 H 32 H 97 Pain Assessment - Last Documented Pain Intensity 0 Intake and Output: Intake & Output 08/15/22 08/16/22 08/17/22 08/18/22 11:59 11:59 11:59 11:59 Intake Total 477 1167 Output Total 099 600 Balance -173 567 Weight 71.6 kg Radiology Exams: Radiology Procedures Category Date Time Status HEAD WITHOUT CONTRAST [CT] Stat Exams 08/15/22 17:43 Completed Multi-Disciplinary Progress Notes: Multi-Disciplinary Progress Notes 08/17/22 08:55 Case Management Note by Arcelia Pittman PATIENT'S FAMILY SPOKE WITH ANGELA FROM [facility] YESTERDAY, THEY ARE CONSIDERING IMPLEMENTING HOSPICE CARE THROUGH THEM ON DISCHARGE. WILL CONTINUE TO FOLLOW. Initialized on 08/17/22 08:55 - END OF NOTE Assessment/Plan (1) Intractable seizures Current Visit: Yes Status: Resolved Code(s): G40.919 - EPILEPSY, UNSP, INTRACTABLE, WITHOUT STATUS EPILEPTICUS (2) Adenocarcinoma of lung, stage 4 Current Visit: Yes Status: Chronic Qualifiers: Laterality: unspecified laterality Qualified Code(s): C34.90 - Malignant neoplasm of unspecified part of unspecified bronchus or lung Code(s): C34.90 - MALIGNANT NEOPLASM OF UNSP PART OF UNSP BRONCHUS OR LUNG (3) Brain mass Current Visit: Yes Status: Chronic Code(s): G93.89 - OTHER SPECIFIED DISORDERS OF BRAIN
[2022-08-17] MEDS: HYDROMORPHONE IV PRN (18:11)
[2022-08-17] MEDS: SODIUM CHLORIDE 0.9% IV PRN (18:11)
[2022-08-17] MEDS: DEXTROSE IV SCH (22:54)
[2022-08-17] MEDS: VERSED IV SCH (22:54)
[2022-08-17] MEDS: WATER IV SCH (22:54)
[2022-08-17 23:28] VITALS: BP 61/47; PULSE 203; O2SAT 88
--- NOTE | 2022-08-18 17:31 | PCM.DS ---
Discharge Summary Date of Admission: 08/16/22 09:00 Admitting Physician: BABITA VARGAS DO Primary Care Provider: VICKI MINAYA Allergies Allergies No Known Drug Allergies Allergy (Verified 08/12/22 11:30) Hospital Summary - Hospital Course Hospital Course: Chief Complaint Diagnosis LUNG CA WITH METS TO BRAIN, SEIZURE ACTIVITY Allergies Allergy/AdvReac Type Severity Reaction Status Date / Time No Known Drug Allergies Allergy Verified 08/12/22 11:30 Vital Signs (Last 24 hours) Temp Pulse Resp BP Pulse Ox 08/17/22 23:21 105.3 F 203 H 26 H 61/47 88 L 08/17/22 20:00 103.6 F 180 H 23 08/17/22 19:44 95 Current Medications Discontinued Medications Generic Name Dose Route Start Last Admin Trade Name Freq PRN Reason Stop Dose Admin Acetaminophen 650 mg 08/15/22 17:47 08/15/22 18:08 Acetaminophen 650 Mg Supp.Rect MT 08/15/22 17:48 650 mg STAT ONE Administration Acetaminophen Confirm 08/15/22 18:01 Acetaminophen 650 Mg Supp.Rect Administered 08/15/22 18:02 Dose 650 mg .ROUTE .STK-MED ONE Acetaminophen 650 mg 08/15/22 21:56 08/17/22 06:25 Acetaminophen 650 Mg Supp.Rect MT 09/14/22 21:55 650 mg Q4H PRN PRN Administration PAIN AND/OR FEVER Albuterol/Ipratropium Confirm 08/16/22 00:10 Ipratropium/Albuterol Sulfate 3 Ml Ampul.Neb Administered 08/16/22 00:11 Dose 3 ml IH .STK-MED ONE Albuterol/Ipratropium 3 ml 08/16/22 01:00 08/17/22 01:05 Ipratropium/Albuterol Sulfate 3 Ml Ampul.Neb IH 09/15/22 00:59 3 ml Q6HRT OLIVA Administration Dexamethasone Sodium Phosphate Confirm 08/15/22 17:43 Dexamethasone Sod Phosphate 4 Mg/Ml Ml Administered 08/15/22 17:44 Dose 4 mg .ROUTE .STK-MED ONE Dexamethasone Sodium Phosphate 4 mg 08/15/22 17:59 08/15/22 17:45 Dexamethasone Sod Phosphate 4 Mg/Ml Ml IV 08/15/22 18:00 4 mg STAT ONE Administration Dexamethasone Sodium Phosphate 4 mg 08/15/22 18:00 10/24/22 18:04 Dexamethasone Sod Phosphate 4 Mg/Ml Ml IV 08/15/22 18:01 4 mg STAT ONE Administration Dexamethasone Sodium Phosphate Confirm 08/15/22 18:01 Dexamethasone Sod Phosphate 4 Mg/Ml Ml Administered 08/15/22 18:02 Dose 4 mg .ROUTE .STK-MED ONE Dexamethasone Sodium Phosphate 4 mg 08/15/22 21:56 08/16/22 04:38 Dexamethasone Sod Phosphate 4 Mg/Ml Ml IV 09/14/22 21:55 4 mg Q6H OLIVA Administration Dexamethasone Sodium Phosphate 4 mg 08/16/22 12:00 Dexamethasone Sod Phosphate 4 Mg/Ml Ml IV 09/15/22 11:59 Q6HT OLIVA Sodium Chloride Confirm 08/15/22 18:06 Sodium Chloride 0.9% 250 Ml Administered 08/15/22 18:07 Dose 250 mls @ ud IV .STK-MED ONE Sodium Chloride 1,000 mls @ 50 mls/hr 08/15/22 21:56 08/17/22 14:40 Sodium Chloride 0.9% 1000 Ml IV 09/14/22 21:55 50 mls/hr .Q20H OLIVA Administration Midazolam HCl 50 mg/ Sodium 250 mls @ 8.95 mls/hr 08/15/22 23:42 08/16/22 17:00 Chloride IV 09/14/22 23:41 0.01 mg/kg/hr .Q24H PRN 2 mls/hr SEDATION Titration Protocol 0.025 MG/KG/HR Meropenem 500 mg/ Sodium 100 mls @ 200 mls/hr 08/16/22 02:00 08/16/22 01:40 Chloride IV 08/16/22 02:29 200 mls/hr ONCE ONE Administration Sodium Chloride Confirm 08/16/22 01:32 Sodium Chloride 100ml Mini-Bag Plus Administered 08/16/22 01:33 Dose 100 mls @ ud IV .STK-MED ONE Hydromorphone HCl 20 mg/ 100 mls @ 2.5 mls/hr 08/16/22 09:42 08/17/22 18:11 Sodium Chloride IV 09/15/22 10:00 2.5 mls/hr PRN PRN Administration Midazolam HCl 50 mg/ Dextrose 250 mls @ 2 mls/hr 08/16/22 17:30 08/17/22 22:54 IV 09/15/22 17:29 Not Given Q24H OLIVA Lorazepam Confirm 08/15/22 17:43 Lorazepam 2 Mg/1 Ml 2 Mg Vial Administered 08/15/22 17:44 Dose 2 mg .ROUTE .STK-MED ONE Lorazepam 1 mg 08/15/22 17:43 08/15/22 17:44 Lorazepam 2 Mg/1 Ml 2 Mg Vial IV 08/15/22 17:44 1 mg STAT ONE Administration Lorazepam 1 mg 08/15/22 17:59 08/15/22 18:00 Lorazepam 2 Mg/1 Ml 2 Mg Vial IV 08/15/22 18:00 1 mg STAT ONE Administration Lorazepam Confirm 08/15/22 18:11 Lorazepam 2 Mg/1 Ml 2 Mg Vial Administered 08/15/22 18:12 Dose 2 mg .ROUTE .STK-MED ONE Lorazepam 0.5 mg 08/15/22 18:15 08/15/22 18:16 Lorazepam 2 Mg/1 Ml 2 Mg Vial IV 08/15/22 18:16 0.5 mg STAT ONE Administration Meropenem Confirm 08/16/22 01:31 Meropenem 500 Mg Vial Administered 08/16/22 01:32 Dose 500 mg IV .STK-MED ONE Midazolam HCl Confirm 08/15/22 18:06 Midazolam Hcl 50 Mg/10 Ml Vial Administered 08/15/22 18:07 Dose 50 mg .ROUTE .STK-MED ONE Non-Formulary Medication 1 each 08/16/22 08:56 08/17/22 22:54 Pharmacy Dosing Request [facility] 08/16/22 08:57 Not Given STAT ONE Ondansetron HCl 4 mg 08/15/22 17:43 08/15/22 17:46 Ondansetron Hcl 4 Mg/2 Ml Vial IV 08/15/22 17:44 4 mg STAT ONE Administration Ondansetron HCl Confirm 08/15/22 18:01 Ondansetron Hcl 4 Mg/2 Ml Vial Administered 08/15/22 18:02 Dose 4 mg .ROUTE .STK-MED ONE Ondansetron HCl 4 mg 08/15/22 21:56 Ondansetron Hcl 4 Mg/2 Ml Vial IV 09/14/22 21:55 Q6H PRN PRN NAUSEA/VOMITING Fluticasone/Salmeterol Confirm 08/16/22 18:53 Fluticasone/Salmeterol 120 Puff Aer.W.Adap Administered 08/16/22 18:54 Dose 1 puff IH .STK-MED ONE Intake & Output (Last 24 hours) 08/16/22 08/17/22 08/18/22 08/19/22 11:59 11:59 11:59 11:59 Intake Total 477 1167 1076 Output Total 650 600 95 Balance -173 567 981 Weight 71.6 kg Laboratory Results (Last 24 hours) 08/15/22 Unknown Urine Osmolality 534 Orders (Last 24 hours) Category Date Time Status Discharge Routine Discharge 08/18/22 00:00 Ordered Patient Care Notes (Last 24 hours) 08/18/22 00:53 Nursing Note by Shanna Smyth Prior to , on 08/17/22 HS shift, patient received 14.36mL of versed and 11.49mL dilaudid. After patient's , this nurse and Mely Cabrera RN HS witnessed wasting of dilaudid 100mL and versed 150mL. Initialized on 08/18/22 00:53 - END OF NOTE 08/18/22 00:45 Nursing Note by Shanna Smyth Patient in asystole at 2350. No heartbeat auscultated by this nurse or Mely Cabrera RN HS. Family at patient's bedside prior to her passing and during her passing. Patient appeared to be comfortable, FLACC score 0. Emotional support provided. This nurse notified Dr. Minaya at 2357 that patient had at 2350 on 08/17/22. Mely Cabrera RN HS called and notified [facility] of patient passing. Family requests to use [facility]. Post mortem care provided following patient's family leaving hospital per their request. Initialized on 08/18/22 00:45 - END OF NOTE 08/18/22 00:44 Nursing Note by Mely Cabrera 08/17/22 @ 2317 - Called [facility] and notified of imminent 08/18/22 @ 0007 - Called [facility] and updated on time of at 08/17/22 @ 2350 Pt not eligible for organ or tissue but possibly for cornea donation 08/18/22 @ 0025 - [facility] called and information given, pt eligible for cornea donation. Do not release body at this time Addendum entered by Mely Cabrera 08/18/22 01:56: 08/18/22 @ 0106 - Kaley from [facility] called back and stated the family had declined donation. Okay to release body 08/18/22 @ 0115 - Called [facility] and advised family had chosen them for arrangements Addendum entered by Mely Cabrera 08/18/22 02:33: 08/18/22 @ 0230 - Body released to [facility] Initialized on 08/18/22 00:44 - END OF NOTE - Vitals & Intake/Output Vital Signs: Vital Signs Temperature 105.3 F 08/17/22 23:21 Pulse Rate 203 H 08/17/22 23:21 Respiratory Rate 26 H 08/17/22 23:21 Blood Pressure 61/47 08/17/22 23:21 O2 Sat by Pulse Oximetry 88 L 08/17/22 23:21 Intake & Output: Intake & Output 08/16/22 08/17/22 08/18/22 08/19/22 11:59 11:59 11:59 11:59 Intake Total 477 1167 1076 Output Total 650 600 95 Balance -173 567 981 Weight 71.6 kg - Lab Result Diagrams: 08/16/22 04:00 08/16/22 04:30 Lab Results-Last 24 Hrs: Lab Results-Last 24 Hours 08/15/22 Range/Units Unknown Urine Osmolality 534 (.) mOsmol/kg Micro Results-Entire Visit: Microbiology 08/15/22 17:48 Urine Culture - Final Catherized NO GROWTH 08/15/22 19:55 Blood Culture - Preliminary Blood NO GROWTH TO DATE 08/15/22 18:31 Blood Culture - Preliminary Blood NO GROWTH TO DATE - Procedures and Test Procedures and Tests throughout Hospitalization: Therapy Orders & Screens 08/15/22 21:56 Respiratory Therapy Consult ROUTINE Comment: Reason For Exam: 08/15/22 22:54 OT Screen per Nursing Assess ONCE Comment: Protocol Order Physician Instructions: Greater than 3 points order OT Admission Screening Reason For Exam: Triggered on Admission Diagnosis: seizure Open Wound/Cellutlitis/Pressure Ulcers: Yes Acute Fx/ORIF/Change in wt bearing status: No Severe MUSCULOSKELETAL pain: No ADL Dysfunction: Yes Acute CVA w/Hemiparesis/Hemiplegia: No Decreased Functional Mobility/Strength: Yes Sprain/Strain: No Acute Post-op Mobility Dysfunction: No Total Points: 9 PT Screen per Nursing Assess ONCE Comment: Protocol Order Physician Instructions: Greater than 3 points order PT Admission Screenin Reason For Exam: Triggered on Admission Diagnosis: seizure Open Wound/Cellutlitis/Pressure Ulcers: Yes Acute Fx/ORIF/Change in wt bearing status: No Severe MUSCULOSKELETAL pain: No ADL Dysfunction: Yes Acute CVA w/Hemiparesis/Hemiplegia: No Decreased Functional Mobility/Strength: Yes Sprain/Strain: No Acute Post-op Mobility Dysfunction: No Total Points: 9 08/15/22 23:27 Oxygen Non-rebreather 15% Comment: Diagnosis: seizure Respiratory Therapy Assessment DAILY Comment: Diagnosis: seizure Discharge Exam Comments: 08/18/22 17:30 patient Final Diagnosis/Problem List - Final Discharge Diagnosis/Problem (1) Intractable seizures Status: Resolved Code(s): G40.919 - EPILEPSY, UNSP, INTRACTABLE, WITHOUT STATUS EPILEPTICUS (2) Adenocarcinoma of lung, stage 4 Status: Chronic Code(s): C34.90 - MALIGNANT NEOPLASM OF UNSP PART OF UNSP BRONCHUS OR LUNG (3) Brain mass Status: Chronic Code(s): G93.89 - OTHER SPECIFIED DISORDERS OF BRAIN - Discharge Discharge Date: 08/18/22 Disposition: Condition: Prescriptions: No Action Metoprolol Tartrate 25 mg [Lopressor 25MG Tab] 25 mg PO BID Acetaminophen [Tylenol 8 Hour] 2 tab PO Q8H PRN PRN PRN Reason: Headache Prochlorperazine Maleate [Compazine] 10 mg PO Q4HPRN PRN PRN Reason: Nausea Lorazepam 1 mg [Ativan 1 MG] 1 mg PO QHS Folic Acid 1 mg PO DAILY dexAMETHasone [Dexamethasone] 2 mg PO BID Lisinopril/Hydrochlorothiazide [Lisinopril-Hctz 20-12.5 mg Tab] 1 each PO DAILY Fluconazole 100 mg [Diflucan 100 MG] 100 mg PO DAILY Rivaroxaban 10 mg Tablet [Xarelto 10 mg Tablet] 10 mg PO DAILY #105 tablet Levofloxacin [Levofloxacin 500 MG Tablet] 500 mg PO DAILY #5 tablet Instructions: Seizures, Adult (DC)
== END 2022-08-18 02:30 | disposition expired | DRG 101 ==
LOC: ED 17:24 → ICU 21:54 → OBSVTOIN 08-16 09:00
PROVIDERS: ADMIT Family Medicine; ATTEND General Practice
DX: G40.919 Epilepsy, unspecified, intractable, without status epilepticus (principal); C34.90 Malignant neoplasm of unspecified part of unspecified bronchus or lung; N39.0 Urinary tract infection, site not specified; G93.89 Other specified disorders of brain; E78.5 Hyperlipidemia, unspecified; I10 Essential (primary) hypertension; L89.322 Pressure ulcer of left buttock, stage 2; L89.312 Pressure ulcer of right buttock, stage 2; Z79.899 Other long term (current) drug therapy; Z20.828 Contact with and (suspected) exposure to other viral communicable diseases; Z72.0 Tobacco use
CPT/HCPCS: 0241U; 36000; 36415; 51702; 70450; 71045; 71260; 80048; 80053; 81015; 82947; 83605; 83735; 83880; 83935; 84133; 84134; 84145; 84300; 84484; 85025; 87040; 87086; 93005; 93041; 93268; 94640; 94760; 94762; 96365; 96366; 96374; 96375; 96376; 99285; 99291; G0378; J1100; J1170; J1956; J2060; J2250; J2405; J2920; A9270-GY